=== PATIENT | female | born 1955 | race Caucasian/White ===

== ENCOUNTER 2023-07-26 09:24 | Day surgery (SDC) | payer MEDICARE, OTHER, SELFPAY ==
[2023-07-26] MEDS: ELIQUIS 5 MG PO (10:27)
[2023-07-26 10:31] LABS: Glucose - Point of Care 120 mg/dl (70-99)
--- NOTE | 2023-07-26 11:15 | ITS.CL.CARDI ---
Paste Worker - Cardioversion
Cardioversion
Procedure Report:
Indication: Recurrent atrial fibrillation 1 month after pulmonary vein isolation
Patient interviewed and examined, consent obtained, timeout performed
Anesthetic technique: Propofol administered by WIND DEVELOPMENT DIRECTOR
Cardioversion technique: 200 J synchronized biphasic shock patches AP position
Result: Sinus rhythm
Complications: None
Conclusion: Successful cardioversion for recurrent atrial fibrillation
No medication changes were made. The patient will follow-up to Dr. Boles as an outpatient.
== END 2023-07-26 11:45 | disposition home or self-care (01) ==
LOC: CATH 09:24
PROVIDERS: ATTENDING PHYSICIAN Internal Medicine Cardiovascular Disease; FAMILY PHYSICIAN Nurse Practitioner Adult Health
DX: I48.0 Paroxysmal atrial fibrillation (principal); I48.92 Unspecified atrial flutter; I10 Essential (primary) hypertension; K21.9 Gastro-esophageal reflux disease without esophagitis; E11.319 Type 2 diabetes mellitus with unspecified diabetic retinopathy without macular edema; Z87.891 Personal history of nicotine dependence; E66.9 Obesity, unspecified; Z68.38 Body mass index [BMI] 38.0-38.9, adult; Z79.4 Long term (current) use of insulin; Z79.01 Long term (current) use of anticoagulants
CPT/HCPCS: 82962; 92960; 93005

== ENCOUNTER 2023-07-29 16:18 | Emergency (ER) | payer MEDICARE, OTHER, SELFPAY ==
[2023-07-29 16:20] VITALS: BP 140/61
[2023-07-29 16:50] LABS: % Basophils 0.6 % (0-2); % Eosinophils 2.1 % (0-6); % Immature Granulocytes 0.4 % (0-0.5); % Lymphocytes 14.4 % (20.5-51.1); % Monocytes 12.3 % (1.7-9.3); % Neutrophils 70.2 % (42.2-75.2); Absolute Eosinophils 0.1 10^3/uL (0-0.7); Absolute Lymphocytes 0.8 10^3/uL (1.2-3.4); Absolute Monocytes 0.6 10^3/uL (0.1-0.6); Absolute Neutrophils 3.7 10^3/uL (1.4-6.5); Hematocrit 34.1 % (37.0-47.0); Hemoglobin 10.9 g/dL (12.0-16.0); Mean Corpuscular Hgb 26.3 pg (27.0-31.0); Mean Corpuscular Volume 82.4 fL (81.0-99.0); Mean Platelet Volume 11.5 fL (7.4-10.4); Nucleated Red Blood Cells % 0 %; Platelet Count 146 10^3/uL (130-400); Red Blood Cell Count 4.14 10^6/uL (4.20-5.40); White Blood Cell Count 5.2 10^3/uL (4.8-10.8)
[2023-07-29 16:59] LABS: INR 1.53; PT 18.2 Sec (11.4-14.6)
[2023-07-29 17:00] LABS: APTT 41.9 Sec (23.4-35.0)
[2023-07-29 17:04] LABS: ALT (SGPT) 78 U/L (0-35); AST (SGOT) 46 U/L (14-36); Albumin 3.8 g/dl (3.5-5.0); Alkaline Phosphatase 232 U/L (38-126); Blood Urea Nitrogen 38 mg/dl (7-17); Calcium 8.7 mg/dl (8.4-10.2); Carbon Dioxide 19 mmol/L (22-30); Chloride 108 mmol/L (98-107); Glucose 200 mg/dl (70-99); Potassium 4.7 mmol/L (3.5-5.1); Sodium 135 mmol/L (135-145); Total Bilirubin 0.9 mg/dl (0.2-1.3); Total Protein 6.9 g/dl (6.3-8.2); eGFR 55.42
[2023-07-29 17:15] LABS: Troponin I < 0.012 ng/ml
[2023-07-29 18:43] VITALS: BP 171/70
[2023-07-29 19:00] VITALS: BP 168/71
--- NOTE | 2023-07-29 19:17 | ED.GENMED ---
History of Present Illness
General
Chief Complaint: Chest Pain
Source: patient
Exam Limitations: none
Time Seen by Provider: 07/29/23 19:03
Nursing documentation reviewed up to this point in time: agreed with
Travel History
Have you had any contact with someone who has COVID-19?: No
Do you have any symptoms of coronavirus? Fever > 100 degrees, chills, cough, shortness of breath, sore throat, loss of taste or smell, muscle aches, or headache?: No
History of Present Illness
History of Present Illness:
67-year-old female presents emergency room complaining of left-sided chest pain, epigastric pain, left flank pain and urinary retention. She also has a diarrhea. This has happened since Saturday afternoon when she had a cardioversion. This occurred
after she was discharged. She states she had no symptoms upon leaving the hospital.
Past History
Past History
ED Past Medical History: Arrthythmia (Atrial fibrillation, atrial flutter), GERD, HTN and IDDM
ED Past Surgical History: Appendectomy, Cardiac and Gynecological
Social History
Tobacco: Former smoker
Alcohol: Occasional
Family History
Family History: CAD
Review of Systems
Review of Systems
Allergies reviewed?: Yes
All Other Systems: Not applicable
Constitutional: Reports no symptoms
EENT: Reports no symptoms
Respiratory: Reports no symptoms
Cardiac: Reports chest pain
ABD/GI: Reports abdominal pain
: Reports flank pain and difficulty voiding
Musculoskeletal: Reports no symptoms
Skin: Reports no symptoms
Neurological: Reports no symptoms
Endocrine: Reports no symptoms
Hematologic/Lymphatic: Reports no symptoms
Psychiatric: Reports no symptoms
Phy Exam
Physical Exam
Physical Exam:
Physical Exam
General: no apparent distress, not acutely ill
Neck: supple. no meningeal signs. normal posterior pharynx
Heart: s1/s2 regular rate and rhythm, no murmur. equal radial
pulses.
HEENT: Pupils equal round reactive to light, EOMI
Lungs: no acute respiratory distress. clear bilaterally
Abdomen: normal bowel sounds. not tender. no CVAT
Neuro: alert and oriented. no focal neurological deficits cranial nerves II through XII intact
Skin: no rash
Psychiatric: well kept. interactive and cooperative
Extremities: no edema. no calf tenderness. negative homans. good distal pulses
Scores
Heart Score for Chest Pain Patients
STEMI patient?: No
History: Slightly or Non-Suspicious
ECG: Normal
Age: >/= 65 years
Risk Factors: 1 or 2 Risk Factors
Troponin: </= Normal Limit
Heart Score for Chest Pain Patients: 3
Heart Score Risk: 2.5% MACE over next 6 weeks
Course
Orders/Labs/Results
Orders:
Orders
07/29/23 16:19
Electrocardiogram (*1) Urgent
Reason for Study: Chest Pain
EKG- Treatment ONCE
07/29/23 16:37
CMP [Comprehensive Metabolic Panel] Urgent
Complete Blood Count/With Diff Urgent
Lipase Urgent
Comment: ADD ON
NT-proBNP Urgent
Comment: ADD ON
PT/INR [Prothrombin Time] Urgent
PTT Urgent
Troponin I Urgent
07/29/23 19:15
CR Chest - 2 Views Urgent
Comment:
Reason For Exam: short of breath, chest pain
US Abdomen Complete/Upper Urgent
Comment:
Reason For Exam: epigastric pain
07/29/23 19:17
Add On- LAB Urgent
Tests Added?: lipase, pro-bnp
07/29/23 20:50
Bladder Scan- Treatment ONCE
Pantoprazole [Protonix] 40 mg PO NOW STA
07/29/23 21:10
Urinalysis Reflex To Culture Urgent
Date Specimen was Collected: 07/29/23
Time Specimen was Collected: 16:28
Urine Microscopic Reflex Cult Urgent
Urine Culture Urgent
LINN Source: U
Specimen Description:
Date Specimen was Collected: 07/29/23
Time Specimen was Collected: 16:28
07/29/23 21:14
Troponin I Urgent
Abnormal Lab Results
07/29/23 07/29/23
16:37 21:10
RBC 4.14 L 10^6/uL
(4.20-5.40)
Hgb 10.9 L g/dL
(12.0-16.0)
Hct 34.1 L %
(37.0-47.0)
MCH 26.3 L pg
(27.0-31.0)
MCHC 32.0 L g/dL
(33.0-37.0)
RDW 15.0 H %
(11.5-14.5)
MPV 11.5 H fL
(7.4-10.4)
Absolute Lymphs (auto) 0.8 L 10^3/uL
(1.2-3.4)
Lymphocytes % 14.4 L %
(20.5-51.1)
Monocytes % 12.3 H %
(1.7-9.3)
PT 18.2 H Sec
(11.4-14.6)
APTT 41.9 H Sec
(23.4-35.0)
Chloride 108 H mmol/L
(98-107)
Carbon Dioxide 19 L mmol/L
(22-30)
BUN 38 H mg/dl
(7-17)
Creatinine 1.1 H mg/dL
(0.6-1.0)
Glucose 200 H mg/dl
(70-99)
AST 46 H U/L
(14-36)
ALT 78 H U/L
(0-35)
Alkaline Phosphatase 232 H U/L
(38-126)
Leukocyte Esterase Rfl 1+ A
(Negative)
Urine WBC (Reflex) 16-20 A /HPF
(0-5)
Urine Bacteria (Reflex) Moderate A
(Negative)
Urine Albumin (Reflex) 2+ A
(Neg - Trace)
07/29/23 16:37
07/29/23 16:37
Vital Signs
Initial and Last Documented VS:
Initial Vital Signs
Temp Pulse Resp BP Pulse Ox
98.0 F 55 20 140/61 99
07/29/23 16:20 07/29/23 16:20 07/29/23 16:20 07/29/23 16:20 07/29/23 16:20
Last Documented Vital Signs
Temp Pulse Resp BP Pulse Ox
98.0 F 55 17 168/71 98
07/29/23 16:20 07/29/23 20:30 07/29/23 20:30 07/29/23 19:00 07/29/23 20:30
MDM/Problems Addressed
Differential Diagnosis Includes:
ACS, PE, pneumonia, CHF, urinary retention
MDM/Problems Addressed:
67-year-old female with chest pain for 4 days. Negative troponins, normal chest x-ray.
Chronic conditions affecting care: Arrhythmia
Acute Exacerbation and/or Progression of Chronic Illness: Arrhythmia
*Radiology
Radiology exam reviewed: radiology read reviewed (X-ray and ultrasound no acute findings)
*Pulse Oximetry
Patient hypoxic: no
*EKG
Interpreted by ED Provider?: Yes
EKG Intrepretation Date: 07/29/23
EKG Intrepretation Time: 16:22
Interpretation: abnormal
Comparison EKG: no changes
Heart Rate: 56
Rate: bradycardiac
Rhythm: sinus
[place]: right axis deviation
Interval: normal interval
QRS Pattern: right bundle branch block
Ischemia: no ischemia
*Estimator Jewelry Interpretation
Rate: bradycardiac
Interpretation: abnormal
Heart Rate: 56
Rhythm: sinus
*Critical Care Note
Total Time (30-74mins, 75-104mins- exclusive of procedures): Not Applicable
Data Reviewed
Review of Other/Old Records Reveals: Labs (creatinine 0.7 on 06/13/2023)
Patient Management
Social determinants of health affecting care: Living situation
Discussion with other providers: Transformer Builder (D/w Dr. Gr who recommends chest x-ray)
Escalation/DeEscalation of care consider admission/obs:
Admit not indicated
ED Attending Note
-
Portions of this chart may have been created with voice recognition software.� Occasional wrong word or��sound alike� substitutions may have occurred due to the inherent limitations of voice recognition software.
Discharge Plan
Departure
Patient Disposition: Home (Routine Discharge)
Date of Disposition: 07/29/23
Time of Disposition: 22:29
Patient with high blood pressure during this ER visit?: Yes
Condition: Good
Discharge Problem:
Chest pain
Instructions: Chest Pain DCA Follow Up, BLOOD PRESSURE
Prescriptions:
No Action
metoprolol tartrate 25 MG tablet
50 mg PO BID
losartan [Cozaar] 100 MG tablet
100 mg PO DAILY
pantoprazole [Protonix] 40 mg tablet,delayed release (DR/EC)
40 mg PO BID Qty: 60 0RF
furosemide [Lasix] 20 mg tablet
20 mg PO DAILY Qty: 90 5RF
acetaminophen [Tylenol Extra Strength] 500 mg Tablet
1,000 mg PO DAILYPRN PRN (Reason: mild pain/DONOVAN)
nystatin 100,000 unit/gram Powder
1 applic TOPICAL .2 TO 3 TIMES A DAY
insulin aspart U-100 [Novolog U-100 Insulin aspart] 100 unit/mL Solution
0 unit SC .VIA PUMP
Patient Comments:
06/19/23, patient uses a pump and states that she uses roughly 90 units a day and replaces her set Q72H. Patient states that she just replaced her insulin today. Insulin use depends on her basal rate and what she eats during meals.
Eliquis 5 mg tablet
5 mg PO BID Qty: 60 0RF
propafenone 150 mg Tablet
150 mg PO TID
Referrals:
UNKNOWN - PT DOES,NOT KNOW [Unknown Provider] -
Interventions
Interventions:
*Risk Screen - Suicide Last Done: 07/29/23 18:49
*General Assessment Last Done: 07/29/23 18:49
*Neglect/Abuse Screening Last Done: 07/29/23 18:49
ED- Fall Risk Assessment Last Done: 07/29/23 18:49
*ED COVID-19 Vaccine History Last Done: 07/29/23 18:49
ED- Cardiac Assessment Last Done: 07/29/23 18:49
[2023-07-29 19:52] LABS: Lipase 44 U/L (23-300)
[2023-07-29 20:03] LABS: NT-proBNP 826 pg/ml
[2023-07-29 20:58] VITALS: BP 159/96
[2023-07-29] MEDS: PROTONIX 40 MG PO (20:59)
[2023-07-29 21:43] LABS: Urine Albumin 2+ (Neg - Trace); Urine Bilirubin Negative (Negative); Urine Character Slightly Cloudy (Clear); Urine Color Yellow; Urine Glucose Negative (Negative); Urine Ketone Negative (Negative); Urine Leukocyte 1+ (Negative); Urine Nitrite Negative (Negative); Urine Occult Blood Negative (Negative); Urine Specific Gravity 1.015 (<1.030); Urine Urobilinogen Negative (Neg - 1+)
[2023-07-29 21:47] LABS: Troponin I < 0.012 ng/ml
[2023-07-29 22:00] LABS: Urine Bacteria Moderate (Negative); Urine Red Blood Cell 0-2 /HPF (0-2); Urine Squamous Cell >30 /LPF (Few); Urine White Cell 16-20 /HPF (0-5)
== END 2023-07-29 22:46 | disposition home or self-care (01) ==
LOC: EMR 16:18
PROVIDERS: Emergency Medicine; EMERGENCY PHYSICIAN Emergency Medicine; FAMILY PHYSICIAN Nurse Practitioner Adult Health
DX: R07.89 Other chest pain (principal); R19.7 Diarrhea, unspecified; R33.9 Retention of urine, unspecified; R10.9 Unspecified abdominal pain; I48.91 Unspecified atrial fibrillation; I10 Essential (primary) hypertension; R06.02 Shortness of breath; Z87.891 Personal history of nicotine dependence
CPT/HCPCS: 99285; 51798; 71046; 76700; 80053; 81003; 81015; 83690; 83880; 84484; 85025; 85610; 85730; 87086; 93005

== ENCOUNTER 2023-08-05 18:24 | Inpatient (IN) | payer MEDICARE, OTHER, SELFPAY ==
[2023-08-05] VITALS (8 sets, daily range): BP systolic 135–162; BP diastolic 41–68; BMI 37.4
[2023-08-05 14:20] LABS: % Basophils 0.4 % (0-2); % Eosinophils 2.1 % (0-6); % Immature Granulocytes 0.2 % (0-0.5); % Lymphocytes 12.4 % (20.5-51.1); % Monocytes 13.2 % (1.7-9.3); % Neutrophils 71.7 % (42.2-75.2); Absolute Eosinophils 0.1 10^3/uL (0-0.7); Absolute Lymphocytes 0.6 10^3/uL (1.2-3.4); Absolute Monocytes 0.6 10^3/uL (0.1-0.6); Absolute Neutrophils 3.4 10^3/uL (1.4-6.5); Hematocrit 34.8 % (37.0-47.0); Hemoglobin 10.8 g/dL (12.0-16.0); Mean Corpuscular Hgb 25.9 pg (27.0-31.0); Mean Corpuscular Volume 83.5 fL (81.0-99.0); Mean Platelet Volume 10.5 fL (7.4-10.4); Nucleated Red Blood Cells % 0 %; Platelet Count 166 10^3/uL (130-400); Red Blood Cell Count 4.17 10^6/uL (4.20-5.40); Red Cell Dist. Width 15.7 % (11.5-14.5); White Blood Cell Count 4.7 10^3/uL (4.8-10.8)
[2023-08-05 14:31] LABS: INR 1.69; PT 19.7 Sec (11.4-14.6)
[2023-08-05 14:32] LABS: APTT 43.8 Sec (23.4-35.0)
[2023-08-05 14:49] LABS: ALT (SGPT) 140 U/L (0-35); AST (SGOT) 139 U/L (14-36); Albumin 3.8 g/dl (3.5-5.0); Alkaline Phosphatase 252 U/L (38-126); Blood Urea Nitrogen 25 mg/dl (7-17); Calcium 8.6 mg/dl (8.4-10.2); Carbon Dioxide 26 mmol/L (22-30); Chloride 102 mmol/L (98-107); Glucose 273 mg/dl (70-99); Sodium 134 mmol/L (135-145); Total Bilirubin 1.7 mg/dl (0.2-1.3); eGFR > 60.00
[2023-08-05 15:04] LABS: NT-proBNP 1840 pg/ml
--- NOTE | 2023-08-05 16:43 | ED.GENMED ---
History of Present Illness
General
Chief Complaint: Breathing Problem
Source: patient and records
Exam Limitations: none
Time Seen by Provider: 08/05/23 16:22
Nursing documentation reviewed up to this point in time: agreed with
Travel History
Have you had any contact with someone who has COVID-19?: No
Do you have any symptoms of coronavirus? Fever > 100 degrees, chills, cough, shortness of breath, sore throat, loss of taste or smell, muscle aches, or headache?: No
History of Present Illness
History of Present Illness:
Patient is a 67-year-old female who presents to the emergency department complaining of increasing shortness of breath since last week with increasing exertional dyspnea and can only walk about 10 feet before having to stop. Patient has had
orthopnea. Patient's weight was 235 and went down to 222 which is her baseline however today it was 237. Patient denies chest pain. Patient has been having diarrhea since she went on propafenone for atrial fibrillation. Last week the patient was
seen for shortness of breath with abdominal pain and chest pain. Patient was given Protonix. Patient's Lasix last week was increased from 20 mg a day to 40 mg twice a day. 3 days ago the patient had a good day but since then she was put on weight
felt edematous and had increasing shortness of breath. Patient continues to have diarrhea. Patient denies any abdominal pain, nausea or vomiting. Patient denies fevers but admits to chills. Patient feels fatigue.
Past History
Past History
ED Past Medical History: Arrthythmia (Atrial fibrillation, atrial flutter), CHF, GERD, HTN and IDDM
ED Past Surgical History: Appendectomy, Cardiac and Gynecological
Social History
Tobacco: Former smoker
Alcohol: Occasional
Family History
Family History: CAD
Review of Systems
Review of Systems
All Other Systems: ROS reviewed and negative except as documented in HPI and ROS
Constitutional: Reports weight gain, fatigue and chills; Denies fever
EENT: Reports no symptoms
Respiratory: Reports trouble breathing; Denies cough
Cardiac: Reports no symptoms
ABD/GI: Reports diarrhea; Denies abdominal pain, nausea, vomiting or anorexia
: Reports frequency; Denies dysuria or bleeding
Musculoskeletal: Reports edema
Skin: Reports no symptoms
Neurological: Reports no symptoms
Hematologic/Lymphatic: Reports no symptoms
Phy Exam
Physical Exam
Physical Exam:
Physical Exam
General: mild distress, alert and appropriate, well nourished, well hydrated
HENT: Normocephalic, supple with no lymphadenopathy, no thyromegaly
Eyes: Clear sclera, conjuctiva without injection
Heart: Regular rhythm and rate. No S3, S4. No murmur. Positive neck vein distention
Lungs: No respiratory distress, no stridor, lung sounds with diminished breath sounds in the bases but otherwise clear and equal bilaterally
Abdomen: Soft, nontender, no organomegaly, no CVA tenderness, BS good
Neuro: Alert and oriented x 3, CN II - XII intact, no motor focality, no cerebellar dysfunction
Skin: no rash
Psychiatric: well kept. interactive and cooperative
Extremities: No cyanosis, tenderness, Good and equal peripheral pulses. +1-2 pitting edema from the knees distally bilaterally
Scores
Heart Failure Risk
Heart Failure Risk Score: Yes
History of Stroke or TIA: No
History of intubation for respiratory distress: No
Heart rate on ED arrival >/= 110: No
SaO2 <90% on arrival on room air: No
HR >/=110 during 3min walk test (or too ill to perform test): Yes
ECG has acute ischemic changes: No
Urea >/=12mmol/L (BUN 33.6mg/dL): No
Serum CO2>/=35mmol/L: No
Troponin I or T elevated to CA Level (0.4mg/dL): No
NT-proBNP >/=5,000ng/L (5,000pg/ml): No
HF Risk Score: 2
Admission Status: MEDIUM RISK 9.2% Consider observation or discharge to home with homecare & f/u visit to PCP/Aerial Hurricane Hunter, or SNF for treatment
Course
Orders/Labs/Results
Orders:
Orders
08/05/23 13:55
EKG [Electrocardiogram (*1)] Urgent
Reason for Study: Shortness of Breath
EKG- Treatment ONCE
08/05/23 14:03
BNP [NT-proBNP] Urgent
Complete Blood Count/With Diff Urgent
Comprehensive Metabolic Panel Urgent
Protime/PTT Urgent
08/05/23 16:40
Troponin I Urgent
Furosemide [Lasix] 80 mg IV NOW STA
Nitroglycerin Ointment [Nitro-Bid] 1 inch TOPICAL NOW STA
CR Chest - 2 Views Urgent
Comment:
Reason For Exam: sob chf
Abnormal Lab Results
08/05/23
14:03
WBC 4.7 L 10^3/uL
(4.8-10.8)
RBC 4.17 L 10^6/uL
(4.20-5.40)
Hgb 10.8 L g/dL
(12.0-16.0)
Hct 34.8 L %
(37.0-47.0)
MCH 25.9 L pg
(27.0-31.0)
MCHC 31.0 L g/dL
(33.0-37.0)
RDW 15.7 H %
(11.5-14.5)
MPV 10.5 H fL
(7.4-10.4)
Absolute Lymphs (auto) 0.6 L 10^3/uL
(1.2-3.4)
Lymphocytes % 12.4 L %
(20.5-51.1)
Monocytes % 13.2 H %
(1.7-9.3)
PT 19.7 H Sec
(11.4-14.6)
APTT 43.8 H Sec
(23.4-35.0)
Sodium 134 L mmol/L
(135-145)
BUN 25 H mg/dl
(7-17)
Glucose 273 H mg/dl
(70-99)
Total Bilirubin 1.7 H mg/dl
(0.2-1.3)
AST 139 H U/L
(14-36)
ALT 140 H U/L
(0-35)
Alkaline Phosphatase 252 H U/L
(38-126)
08/05/23 14:03
08/05/23 14:03
Vital Signs
Initial and Last Documented VS:
Initial Vital Signs
Temp Pulse Resp BP Pulse Ox
97.9 F 62 18 162/68 95
08/05/23 13:52 08/05/23 13:52 08/05/23 13:52 08/05/23 13:52 08/05/23 13:52
Last Documented Vital Signs
Temp Pulse Resp BP Pulse Ox
97.9 F 62 18 162/68 95
08/05/23 13:52 08/05/23 13:52 08/05/23 13:52 08/05/23 13:52 08/05/23 13:52
*Pulse Oximetry
Patient hypoxic: no
*EKG
Interpreted by ED Provider?: Yes
EKG Intrepretation Date: 08/05/23
EKG Intrepretation Time: 16:48
Interpretation: abnormal
Comparison EKG: no changes
Heart Rate: 64
Rate: normal
Rhythm: sinus
[place]: normal axis
Interval: normal interval
QRS Pattern: low voltage and right bundle branch block
Ischemia: non-specific ST changes
*Bender Helper Interpretation
Rate: normal
Interpretation: normal
Heart Rate: 64
Rhythm: sinus
*Critical Care Note
Total Time (30-74mins, 75-104mins- exclusive of procedures): Not Applicable
Update Note
Update Note:
Patient's weight is elevated in spite of quadrupling and her Lasix dose. Patient is symptomatic as well as having clinical findings of CHF. Patient's liver enzymes are elevated. Patient's BNP is her highest ever. Patient will be admitted.
ED Attending Note
-
Portions of this chart may have been created with voice recognition software.� Occasional wrong word or��sound alike� substitutions may have occurred due to the inherent limitations of voice recognition software.
Discharge Plan
Departure
Patient Disposition: Admit
Date of Disposition: 08/05/23
Time of Disposition: 16:48
Admit to: Telemetry
Admit to doctor: Hospitalist
Presentation/result/management discussed w/ accepting MD/DO: Aerial Hurricane Hunter
Patient with high blood pressure during this ER visit?: Yes
Condition: Fair
Covid-19: Not Applicable
Discharge Problem:
CHF (congestive heart failure)
Prescriptions:
No Action
metoprolol tartrate 25 MG tablet
50 mg PO BID
losartan [Cozaar] 100 MG tablet
100 mg PO DAILY
Eliquis 5 mg tablet
5 mg PO BID Qty: 60 0RF
propafenone 150 mg Tablet
150 mg PO TID
Patient Own Insulin Pump
0 unit SC AC
Rx Instructions:
patient using insulin apart
pantoprazole [Protonix] 40 mg tablet,delayed release (DR/EC)
40 mg PO DAILY
furosemide [Lasix] 20 mg tablet
40 mg PO DAILY
Interventions
Interventions:
*Risk Screen - Suicide Last Done: 08/05/23 13:52
*General Assessment Last Done: 08/05/23 13:52
*Neglect/Abuse Screening Last Done: 08/05/23 13:52
*ED COVID-19 Vaccine History Last Done: 08/05/23 13:52
--- NOTE | 2023-08-05 17:14 | EDRN ---
Diane GOMEZ in room w/pt at this time.
--- NOTE | 2023-08-05 17:16 | HPS.HSE ---
Addendum entered and electronically signed by Flora Scott MD 08/05/23 18:17:
I saw and examined the patient.
The PIPE WRAPPING MACHINE OPERATOR or PA's note was reviewed and I agree with the note.
Comment:
CVS: S1-S2 normal, sm at RHB
Chest: few rales Bases
Abdomen: Soft, NT / Bowel sounds present
Extremities: B/L LE edema, normal pulses
ROAD DESIGN DRAFTSPERSON: Non focal exam
#Acute Heart Failure
-Type unclear
-HFPEF Vs RHF
-[facility] Mar 2023: EF 55-60%
-Likely reason rapid Afib, now in SR
-Continue Lasix 40mg IV BID
-Monitor I&Os and Daily Weights
-Consult Cardiology
#Elevated LFTs, suspect related to hepatic congestion in setting of heart failure
-Continue to trend
-Consider further imaging if LFTs do no improve with diuresis
-Recent USS with Steato hepatosis
#Paroxysmal Atrial Fibrillation
-H/O Multiple Ablations and cardioversions
-Last Cardioversion 07/26/23
-Last Ablation 06/19/23
-In SR now
-Continue Eliquis for anticoagulation
-Continue Rythmol and Metoprolol for rhythm/rate control
-Advised pt to Do Sleep study as OP
#Essential Hypertension
-Continue losartan and metoprolol with hold parameters
#Diabetes Mellitus
-Continue patient's own insulin pump
-She is comfortable managing
-Uses NovoLog Insulin
#Normocytic Anemia
-Check iron studies, vitamin b12 and folate
#GERD
-Continue Protonix
#Obesity Class II
-Encourage weight loss
-Encouraged patient to obtain sleep study as outpatient
#H/O Migraines
#Ex Smoker
#DVT prophylaxis: Eliquis
#Code Status: Full Code
Original Note:
Family Physician
-
Family Physician:
Chief Complaint
-
Shortness of Breath
History of Present Illness
Patient is a 67 y/o female with PMH of paroxysmal atrial fibrillation, type I diabetes mellitus, and hypertension who presented to the ED complaining of SOB, orthopnea, and acute weight gain x 7 days. Patient first experienced atrial fibrillation 10
years ago and underwent ablation and cardioversion. She says she had not experienced a-fib again until this past fall. She had an ablation on 06/19/23 followed by a cardioversion on 07/26/2023. Patient admits to 11 lb weight gain since her
cardioversion. Last Saturday her dose of Lasix was increased from 20 mg to 40 mg. Despite increased Lasix she has gained an additional few pounds and admits to generalized edema for the past week. She has had worsening dyspnea on exertion to the
point of feeling shortness of breath after walking 10 ft. Patient says she has been unable to sleep for the past 2 weeks due to orthopnea. She denies any prior history of heart failure.
Medical History
Past Medical History
Past Medical History: Reports Other
Additional Past Medical History:
Paroxysmal Atrial Fibrillation
Essential Hypertension
Hyperlipidemia
Diabetes Mellitus, Insulin-Dependent
GERD
Past Surgical History: Reports Other
Additional Past Surgical History:
Right Rotator Cuff Repair
Appendectomy
Discectomy
Tubal Ligation
Tonsils and Adenoids
Social History
Tobacco: Non-smoker
Alcohol: None
Family History
Family History: Hypertension
Allergies / Home Medications
Allergies reflects when Allergies were last updated in [facility].
Home Medications with original date entered in [facility]
Allergy/Medication List:
Allergies
Allergy/AdvReac Type Severity Reaction Status Date / Time
adhesive [Adhesive] Allergy Unknown Rash Verified 08/05/23 13:53
crisaborole [From Eucrisa] Allergy Rash Verified 08/05/23 13:53
sulfamethoxazole Allergy GI upset Verified 08/05/23 13:53
[From Bactrim]
trimethoprim [From Bactrim] Allergy GI upset Verified 08/05/23 13:53
Home Medications
metoprolol tartrate 25 mg tablet 50 mg PO BID Blood pressure 01/10/14
losartan 100 mg tablet (Cozaar) 100 mg PO DAILY Blood pressure 01/14/21
apixaban 5 mg tablet (Eliquis) 5 mg PO BID #60 tabs 05/28/23
propafenone 150 mg tablet 150 mg PO TID 07/26/23
Patient Own Insulin Pump 0 unit SC AC 08/05/23
furosemide 20 mg tablet (Lasix) 40 mg PO DAILY 08/05/23
pantoprazole 40 mg tablet,delayed release (Protonix) 40 mg PO DAILY 08/05/23
Review of Systems
-
A 12 point ROS was completed and negative except as noted: Yes
Constitutional: Denies Fever or Chills
Respiratory: Reports Trouble Breathing
Cardiac: Reports Chest Pain (Episode last week at which she was seen in the ED with negative work-up)
Physical Exam
Vital Signs
Vital Signs
Temp Pulse Resp BP Pulse Ox
97.9 F 62 18 162/68 95
08/05/23 13:52 08/05/23 13:52 08/05/23 13:52 08/05/23 13:52 08/05/23 13:52
Physical Exam
General: Well Developed and Well Nourished
HEENT: Anicteric and Moist mucous membranes
Respiratory: Clear and Non Labored Respirations
Cardiac: S1/S2, Regular Rhythm and Gallop
GI: Soft, Non Tender and Other (Protuberant )
Rectal: Deferred by Provider
Musculoskeletal: No Clubbing, No Cyanosis and Other (+3 pitting edema bilateral lower ext)
Skin: Warm and Dry
Neuro: Awake, Alert, Oriented and Nonfocal/grossly intact
Psych: Calm
Laboratory Results
-
08/05/23 14:03
08/05/23 14:03
Laboratory Results
PT 19.7 Sec (11.4-14.6) H 08/05/23 14:03
INR 1.69 08/05/23 14:03
APTT 43.8 Sec (23.4-35.0) H 08/05/23 14:03
Total Bilirubin 1.7 mg/dl (0.2-1.3) H 08/05/23 14:03
AST 139 U/L (14-36) H 08/05/23 14:03
ALT 140 U/L (0-35) H 08/05/23 14:03
Alkaline Phosphatase 252 U/L (38-126) H 08/05/23 14:03
Data Reviewed
-
Lab Data: Labs Reviewed by me
Impression/Plan
-
Acute Heart Failure
-[facility] HUGO Mar 2023: EF 55-60%
-Consult Cardiology
-Continue Lasix 40mg IV BID
-Monitor I&Os and Daily Weights
Elevated LFTs, suspect related to hepatic congestion in setting of heart failure
-Continue to trend
-Consider further imaging if LFTs do no improve with diuresis
Paroxysmal Atrial Fibrillation
-Continue Eliquis for anticoagulation
-Continue Rythmol and Metoprolol for rhythm/rate control
Essential Hypertension
-Continue losartan and metoprolol with hold parameters
Diabetes Mellitus,
-Continue patient's own insulin pump
Normocytic Anemia
-Check iron studies, vitamin b12 and folate
GERD
-Continue Protonix
Obesity Class II
-Encourage weight loss
-Encouraged patient to obtain sleep study as outpatient
DVT proph: Eliquis
Code Status: Full Code
[2023-08-05] MEDS: NITRO-BID 1 INCH TOPICAL (17:19)
[2023-08-05] MEDS: LASIX 80 MG IV (17:22)
--- NOTE | 2023-08-05 17:25 | EDRN ---
Dr. Scott in room w/ pt at this time.
[2023-08-05 17:48] LABS: Troponin I < 0.012 ng/ml
--- NOTE | 2023-08-05 18:07 | EDRN ---
Pt OOB x2 to commode, once prior to xray and now post xray.
[2023-08-05 19:28] LABS: Iron 46 ug/dl (37-170)
[2023-08-05 19:37] LABS: Percent Saturation 11 % (20-50); Total Iron Binding Capacity 393 ug/dl (265-497)
[2023-08-05 20:19] LABS: Ferritin 20.9 ng/ml (11.1-264.0)
[2023-08-05 20:51] LABS: Folate 12.7 ng/ml (2.76-20); Vitamin B12 656 pg/ml (239-931)
[2023-08-05] MEDS: ELIQUIS 5 MG PO (20:58)
[2023-08-05] MEDS: LOPRESSOR 50 MG PO (20:58)
[2023-08-05] MEDS: RYTHMOL 150 MG PO (21:42)
[2023-08-05 21:46] LABS: Glucose - Point of Care 162 mg/dl (70-99)
[2023-08-05] MEDS: PT'S OWN INSULIN PUMP - NovoLOG SC (22:19)
[2023-08-06] VITALS (7 sets, daily range): BP systolic 115–142; BP diastolic 49–72; BMI 37.0; BMI 37.1
[2023-08-06 06:05] LABS: Hematocrit 32.5 % (37.0-47.0); Hemoglobin 10.2 g/dL (12.0-16.0); Mean Corp Hgb Conc. 31.4 g/dL (33.0-37.0); Mean Corpuscular Volume 82.9 fL (81.0-99.0); Platelet Count 162 10^3/uL (130-400); Red Blood Cell Count 3.92 10^6/uL (4.20-5.40); Red Cell Dist. Width 15.9 % (11.5-14.5); White Blood Cell Count 3.9 10^3/uL (4.8-10.8)
[2023-08-06 06:33] LABS: ALT (SGPT) 110 U/L (0-35); AST (SGOT) 77 U/L (14-36); Albumin 3.3 g/dl (3.5-5.0); Alkaline Phosphatase 221 U/L (38-126); Blood Urea Nitrogen 25 mg/dl (7-17); Calcium 8.5 mg/dl (8.4-10.2); Carbon Dioxide 30 mmol/L (22-30); Chloride 104 mmol/L (98-107); Direct Bilirubin 0.2 mg/dl (0.0-0.4); Estimated Creatinine Clearance 75 ml/min; Glucose 88 mg/dl (70-99); HDL Cholesterol 40 mg/dl; LDL Cholesterol, Calculated 49 mg/dl; Magnesium 1.9 mg/dl (1.6-2.3); Potassium 3.7 mmol/L (3.5-5.1); Sodium 138 mmol/L (135-145); Total Bilirubin 1.3 mg/dl (0.2-1.3); Total Cholesterol 105 mg/dl (50-199); Total Protein 6.4 g/dl (6.3-8.2); Triglyceride 80 mg/dl (10-149); Very Low Density Lipoprotein 16 mg/dl (0-30); eGFR > 60.00
[2023-08-06 06:57] LABS: TSH Reflex To Free T4 3.57 uIU/ml (0.47-4.68)
[2023-08-06] MEDS: PROTONIX 40 MG PO (08:14)
[2023-08-06] MEDS: COZAAR 100 MG PO (08:14)
[2023-08-06] MEDS: LOPRESSOR 50 MG PO (08:15)
[2023-08-06] MEDS: LASIX 40 MG IV (08:16)
[2023-08-06] MEDS: ELIQUIS 5 MG PO ×2 (08:16→20:29)
[2023-08-06] MEDS: FLUSH (NSS) 2 FLUSH IV (08:18)
[2023-08-06] MEDS: RYTHMOL 150 MG PO ×3 (08:24→21:51)
[2023-08-06 08:26] LABS: Glycohemoglobin (HgbA1c) 7.7 % (4.0-5.6)
[2023-08-06 08:29] LABS: Glucose - Point of Care 102 mg/dl (70-99)
--- NOTE | 2023-08-06 09:24 | PN.DE.MGMTRT ---
Insulin Management
- -
08/06/2023: Diabetes Management Consult:
67 year old female admitted 08/04 with chest pain and diarrhea.
PMH includes: HTN, CAD, a Fib s/p ablation, and T1DM x 40 years.
Prior to admission she was using Tandem tslim X2 with control IQ with NovoLog Insulin and DexCom G67. A1C on admission is 7.7%. States that the best her A1C has veer been was at 7.2%. She still sees her endocrine Dr. Cordero in the [facility].
Pump settings:
Basal carb ratio correction
12am 1.85 10 30
3am 1.75 10 30
5am 1.35 5 30
6am 1.65 6 30
630am 1.75 5.5 30
8:30am 1.4 5.5 30
12pm 1.1 5 30
6pm 1.2 4.5 30
8pm 1.4 4.5 30
10pm 1.4 4 30
24 hour basal total 34.225 units
Target range 110. Active insulin 5 hours
Glucose stable, FBG 88 this AM, prebreakfast 102, on above pump settings. Patient able to manage pump independently.
Her breakfast meal tkt shows a total of 4 CHO servings +60 Gm of carbs, pt states that she corrected for 2 CHO svgs because she felt that the hospital CHO counting system was higher than her CHO count that she does at home. Her current glucose is
186 ~1 hr after breakfast via her CGM. Explained to pt that she needs to look at her meal tkt and enter the exact total CHO count as stated on her meal tkt.
Will make no changes to pump settings at this time.
Her infusion set is due to be changed today, she states that her Family is on their way to the hospital to bring in new infusion set and insulin.
discussed with pt and Nurse re: bedside insulin pump work sheet.
Diabetes History
- -
Type of Diabetes: 1
Pre-Admission Diabetes Regimen
08/05/23 08/06/23
14:03 05:23
Creatinine 0.8 0.9
Lab Results
Hemoglobin A1c 7.7 % (4.0-5.6) H 08/06/23 05:23
Insulin Pump Settings
IP Diabetes Regimen
08/05/23 08/05/23 08/06/23
14:03 21:45 05:23
Glucose 273 H 88
POC Glucose 162 H
08/06/23
08:27
Glucose
POC Glucose 102 H
Patient Education
[2023-08-06 12:14] LABS: Glucose - Point of Care 177 mg/dl (70-99)
--- NOTE | 2023-08-06 12:51 | CM ---
CM met with pt at bedside
Pt lives with her in a 2 story home
Independent, driving
Denies DME in home
Reports past snf - over 10 years ago - [place] [address]
Denies past Home care
PCP - Dr Bill Chance
Pharm - [facility], [place]
Will have ride at d/c
Plan - anticipate home no needs
--- NOTE | 2023-08-06 13:24 | W.PN.HOSP.TC ---
Today's Communication/Plan
-
Diuresis
Increase lasix
Await ECHO
Assessment / Plan
Assessment / Plan
CVS: S1-S2 normal, sm at RHB
Chest: CTA
Abdomen: Soft, NT / Bowel sounds present
Extremities: B/L LE edema, normal pulses
CARE CLINICIAN: Non focal exam
#Acute Heart Failure
-Type unclear
-HFPEF Vs RHF
-VI[facility] HUGO Mar 2023: EF 55-60%
-Likely reason rapid Afib, now in SR
-Continue Lasix but change to 60mg IV BID
-Continue BB
-Cut back Losartan while diuresing ( 100 mg to 50 mg)
-Monitor I&Os and Daily Weights
-ECHO done results pending.
-Consult Cardiology
#Elevated LFTs, suspect related to hepatic congestion in setting of heart failure
-Continue to trend
-Consider further imaging if LFTs do no improve with diuresis
-Recent USS with Steato hepatosis
#Paroxysmal Atrial Fibrillation
-H/O Multiple Ablations and cardioversions
-Last Cardioversion 07/26/23
-Last Ablation 06/19/23
-In SR now
-Continue Eliquis for anticoagulation
-Continue Rythmol and Metoprolol for rhythm/rate control
-Advised pt to Do Sleep study as OP
#Essential Hypertension
-Continue losartan (50 mg) and metoprolol
#Diabetes Mellitus
-Continue patient's own insulin pump
-She is comfortable managing
-New supplies being brought in today
-Diabetic Management NIGHT CLERK AUDITOR following.
-Uses NovoLog Insulin
-A1C 7.7
#Normocytic Anemia
-Mild KYLE
-Replace PO
#GERD
-Continue Protonix
#Obesity Class II
-Encourage weight loss
-Encouraged patient to obtain sleep study as outpatient
#H/O Migraines
#Ex Smoker
#DVT prophylaxis: Eliquis
#Code Status: Full Code
D/W Cards
D/W RN
Anticipated Discharge: > 48 hours
Subjective/Interval History
-
Date of Service: August 06, 2023
Objective Data
-
Labs:
Laboratory Results
08/06/23
05:23
WBC 3.9 L
Hgb 10.2 L
Hct 32.5 L
Plt Count 162
Sodium 138
Potassium 3.7
Chloride 104
Carbon Dioxide 30
BUN 25 H
Creatinine 0.9
Glucose 88
Calcium 8.5
Total Bilirubin 1.3
AST 77 H
ALT 110 H
Alkaline Phosphatase 221 H
Vital Signs:
Vital Signs
Temp Pulse Resp BP Pulse Ox
97.9 F 61 16 129/56 95
08/06/23 11:00 08/06/23 11:00 08/06/23 11:00 08/06/23 11:00 08/06/23 11:00
I&O
08/05/23 08/06/23 08/07/23
06:59 06:59 06:59
Output Total 1700 / 1700
Balance -1700 / -1700
[2023-08-06] MEDS: FEOSOL 325 MG PO (13:40)
[2023-08-06] MEDS: PT'S OWN INSULIN PUMP - NovoLOG 8.90000000000000036 UNIT SC (13:41)
[2023-08-06] MEDS: PT'S OWN INSULIN PUMP - NovoLOG 6.5 UNIT SC (13:42)
--- NOTE | 2023-08-06 15:14 | CON.CAR ---
Addendum entered and electronically signed by Clifton Rodgers MD 08/06/23 16:38:
I saw and examined the patient.
The WAREHOUSE FORKLIFT OPERATOR or PA's note was reviewed and I agree with the note.
Comment: General: Well developed, well nourished in NAD.
Neck: Supple, no JVD, HJR, carotids +2 B/L, no bruits bilaterally.
Heart: Non displaced PMI, RRR, no murmurs, No S3, S4, no rubs.
Lungs: Clear to auscultation bilaterally, no wheeze, rhonchi, rubs bilaterally,
normal expiratory phase.
Abdomen: Normal bowel sounds, soft, non-tender, non-distended.
Extremities: Mild edema bilaterally.
Neuro: Grossly nonfocal, awake, alert and oriented x3.
Amina has a history of chronic diastolic CHF, A-fib status post PVI in 2013 and 2023 on chronic propafenone and Eliquis, hypertension, diabetes, obesity. She presents with worsening shortness of breath and approximate 13 pound weight gain. She has
had some diuresis and feels better. She she still feels that she has volume overload. She claims her dry weight is approximately 222 pounds and is currently 229 pounds. Lasix has been increased. Check echocardiogram
Original Note:
Consultation
Consultation Request
Date/Time Consultation Requested: 08/05/23 at 2005
Date/Time Consultation Performed: 08/06/23 at 1130
Requesting Provider: Dr. Scott
Performing Provider: Dr. Rodgers
Reason for Consultation: Acute HF
Medical History
-
History of Present Illness:
Patient came to [facility] yesterday with GEORGE and is now admitted with acute HF and cardiology has been consulted. Patient has a h/o paroxysmal Afib and had PVI 06/19/23, but had a symptomatic recurrence of Afib 07/17/23 so she was started on propafenone
and then had successful CV 07/26/23. Patient was then evaluated in [facility] 07/29/23 for chest pain which seemed to start after CV and ECG in the ER showed SR and abdominal u/s suggested fatty liver, but no other findings and patient was discharged to home.
Patient was seen in the office 07/31/23 and ECG showed ongoing SR, but she reported GEORGE and chest burning. Weight was up 11 lbs in 2 weeks and there was concern for acute HF and patient was asked to increase Lasix to 40 BID for 2 days and then 40 mg
daily thereafter, prior to that patient was taking Lasix 20 mg PO daily. Cardiology office called the patient to check on her 08/05/23 and patient reported initial weight loss and then gained weight back and ongoing SOB so patient was recommended ER
evaluation. In [facility] patient's pro-BNP was 1840 which is high for her, but CXR was stable. Patient reports symptomatic improvement in SOB with Lasix IV thus far.
PMH:
Chronic HFpEF
Paroxysmal Afib
s/p PVI 12/22/13
s/p PVI 06/19/23
Chronic propafenone therapy
Chronic Eliquis OAC
HTN
DM 2
Obese, BMI 37
Past Medical History
Past Medical History: Other (in HPI)
Past Surgical History: Appendectomy and Cardiac (PVI)
Social History
Tobacco: Former Smoker
Alcohol: Occasional
Drug: None
Personal:
Living: With Family
Family History
Family History: CAD (and CHF)
Allergies / Home Medications
Allergy/AdvReac Type Severity Reaction Status Date / Time
adhesive [Adhesive] Allergy Rash/SKIN Verified 08/05/23 20:09
RED
crisaborole [From Eucrisa] Allergy Rash Verified 08/05/23 13:53
sulfamethoxazole Allergy GI upset Verified 08/05/23 13:53
[From Bactrim]
trimethoprim [From Bactrim] Allergy GI upset Verified 08/05/23 13:53
Medication Instructions Recorded Confirmed Type
metoprolol tartrate 25 mg tablet 50 mg PO BID Blood pressure 01/10/14 08/05/23 History
losartan 100 mg tablet (Cozaar) 100 mg PO DAILY Blood pressure 01/14/21 08/05/23 History
apixaban 5 mg tablet (Eliquis) 5 mg PO BID #60 tabs 05/28/23 08/05/23 Rx
propafenone 150 mg tablet 150 mg PO TID Arrhythmia 07/26/23 08/05/23 History
Patient Own Insulin Pump 0 unit SC AC Diabetes 08/05/23 08/05/23 History
furosemide 20 mg tablet (Lasix) 40 mg PO DAILY Fluid 08/05/23 08/05/23 History
Retention/Swelling
pantoprazole 40 mg tablet,delayed 40 mg PO DAILY Gastrointestinal 08/05/23 08/05/23 History
release (Protonix) Issue
Review of Systems
-
History Source: Patient
All other systems: Negative unless noted
Physical Exam
Vital Signs
Temp Pulse Resp BP Pulse Ox
97.9 F 61 16 129/56 95
08/06/23 11:00 08/06/23 11:00 08/06/23 11:00 08/06/23 11:00 08/06/23 11:00
GEN: NAD. AAO x3
HEENT: EOMI
LUNGS: Mostly clear without wheeze or rales
CV: Reg
ABD: soft, BS+
EXT: +2 B/L LE edema. No clubbing, cyanosis or lesions B/L
NEURO: Gross non-focal
SKIN: Warm, dry and pink. No rash
Lab Results
08/06/23 05:23
08/06/23 05:23
Troponin I < 0.012 ng/ml 08/05/23 17:04
Phb-E-Gihkjklwdaw Pept 1840 pg/ml 08/05/23 14:03
Impression / Plan
-
PCP: ANJANA Connelly
Cardiology: Dr. Boles
Impression:
Acute HFpEF
Elevated LFTs
Paroxysmal Afib
s/p PVI 12/22/13
s/p PVI 06/19/23
Chronic propafenone therapy
Chronic Eliquis OAC
HTN
DM 2
Obese, BMI 37
Echo 02/06/23: EF 55% no regional WMA, mild to mod TR with PAP 39 mmHg
Plan:
-Patient came to [facility] yesterday with GEORGE and is now admitted with acute HF and cardiology has been consulted. Patient has a h/o paroxysmal Afib and had PVI 06/19/23, but had a symptomatic recurrence of Afib 07/17/23 so she was started on propafenone
and then had successful CV 07/26/23. Patient was then evaluated in [facility] 07/29/23 for chest pain which seemed to start after CV and ECG in the ER showed SR and abdominal u/s suggested fatty liver, but no other findings and patient was discharged to home.
Patient was seen in the office 07/31/23 and ECG showed ongoing SR, but she reported GEORGE and chest burning. Weight was up 11 lbs in 2 weeks and there was concern for acute HF and patient was asked to increase Lasix to 40 BID for 2 days and then 40 mg
daily thereafter, prior to that patient was taking Lasix 20 mg PO daily. Cardiology office called the patient to check on her 08/05/23 and patient reported initial weight loss and then gained weight back and ongoing SOB so patient was recommended ER
evaluation. In [facility] patient's pro-BNP was 1840 which is high for her, but CXR was stable. Patient reports symptomatic improvement in SOB with Lasix IV thus far.
-Weight is only down 1 lb overnight with Lasix 40 mg IV BID. Hospitalist attending increased Lasix to 60 mg IV BID on 08/06/23. Patient was taking Lasix 20 mg PO daily prior to recent increase in diuretic dosing at cardiology office visit 07/31/23.
-Patient is s/p repeat PVI 06/19/23, then symptomatic recurrence 07/17/23 and started on propafenone, then successful CV 07/26/23. Remains in SR now on ECG reviewed by me.
-Patient feels that her symptoms coincide with staring propafenone 150 mg TID on 07/17/23, but also possible that symptoms due to rapid Afib and then acute HF. Will cont propafenone for now
-Cont Eliquis 5 mg BID (age 67, Cre 0.9, wt 104 kg)
-Repeat echo pending. EF was preserved by echo 02/06/23
-Outpatient doses of losartan 50 mg daily and Lopressor 50 mg BID continued.
-LFTs were also elevated at her ER visit 07/29/23 and there is concern for fatty liver.
[2023-08-06] MEDS: LASIX 60 MG IV (16:57)
[2023-08-06] MEDS: TESSALON PERLES 200 MG PO (17:00)
[2023-08-06 17:01] LABS: Glucose - Point of Care 164 mg/dl (70-99)
[2023-08-06] MEDS: PT'S OWN INSULIN PUMP - NovoLOG 6.70000000000000018 UNIT SC (18:24)
[2023-08-06] MEDS: LOPRESSOR PO (20:17)
[2023-08-06 21:46] LABS: Glucose - Point of Care 176 mg/dl (70-99)
[2023-08-06] MEDS: PT'S OWN INSULIN PUMP - NovoLOG 1.39999999999999991 UNIT SC (21:52)
[2023-08-07 03:46] VITALS: BP 120/50
[2023-08-07 05:35] VITALS: BMI 36.9
[2023-08-07 06:26] LABS: Blood Urea Nitrogen 30 mg/dl (7-17); Carbon Dioxide 28 mmol/L (22-30); Chloride 99 mmol/L (98-107); Estimated Creatinine Clearance 75 ml/min; Glucose 91 mg/dl (70-99); Potassium 3.7 mmol/L (3.5-5.1); Sodium 136 mmol/L (135-145); eGFR > 60.00
[2023-08-07 07:00] VITALS: BP 163/65
[2023-08-07] MEDS: ELIQUIS 5 MG PO ×2 (07:44→20:08)
[2023-08-07] MEDS: PROTONIX 40 MG PO (07:44)
[2023-08-07] MEDS: RYTHMOL 150 MG PO ×3 (07:44→21:42)
[2023-08-07] MEDS: FEOSOL 325 MG PO (07:45)
[2023-08-07] MEDS: LASIX 60 MG IV (07:45)
[2023-08-07] MEDS: COZAAR 50 MG PO ×2 (07:48→20:09)
[2023-08-07] MEDS: LOPRESSOR 50 MG PO ×2 (07:48→20:09)
[2023-08-07 08:17] LABS: Glucose - Point of Care 113 mg/dl (70-99)
--- NOTE | 2023-08-07 09:54 | PN.DE.MGMTRT ---
Insulin Management
- -
08/06/2023: Diabetes Management Consult:
67 year old female admitted 08/04 with chest pain and diarrhea.
PMH includes: HTN, CAD, a Fib s/p ablation, and T1DM x 40 years.
Prior to admission she was using Tandem tslim X2 with control IQ with NovoLog Insulin and DexCom G67. A1C on admission is 7.7%. She still sees her endocrine Dr. Cordero in the [facility].
Pump settings:
Basal carb ratio correction
12am 1.85 10 30
3am 1.75 10 30
5am 1.35 5 30
6am 1.65 6 30
630am 1.75 5.5 30
8:30am 1.4 5.5 30
12pm 1.1 5 30
6pm 1.2 4.5 30
8pm 1.4 4.5 30
10pm 1.4 4 30
24 hour basal total 34.225 units
Target range 110. Active insulin 5 hours
Glucose has been well controlled, range 88 to 176 yesterday, fasting glucose this AM 91. Patient is alert and oriented, able to discuss insulin pump, she changed infusion set without difficulty. Will make no change to current regimen.
Diabetes History
- -
Type of Diabetes: 1
Pre-Admission Diabetes Regimen
08/07/23
05:32
Creatinine 0.9
Lab Results
Hemoglobin A1c 7.7 % (4.0-5.6) H 08/06/23 05:23
Insulin Pump Settings
IP Diabetes Regimen
08/06/23 08/06/23 08/06/23
12:12 17:00 21:45
Glucose
POC Glucose 177 H 164 H 176 H
08/07/23 08/07/23
05:32 08:16
Glucose 91
POC Glucose 113 H
Meal type: Dinner
Meal type: Lunch
Meal type: Breakfast
Amount consumed: 100%
Amount consumed: 100%
Amount consumed: 100%
Patient Education
[2023-08-07 11:00] VITALS: BP 160/75
--- NOTE | 2023-08-07 12:31 | W.PN.CARDCBS ---
Addendum entered and electronically signed by Zay Boles MD 08/07/23 13:14:
I saw and examined the patient.
The Patient Service Associate's note was reviewed and I agree with the note.
Comment:
GEN: No distress, awake, Ox3
HEENT: supple, anicteric, mmm
LUNGS: scatt rhonchi
CV: Reg, S1/S2, /6 syst LSB, no gallop
ABD: soft, BS+, NT/ND
EXT: No edema
NEURO: Gross non-focal
SKIN: No rash
Plan:
Feeling better, Cont IV lasix for another 24 hours.
Remains in sinus rhythm. Cont Propafenone and Eliquis.
Creat 0.9
Original Note:
Today's Communication / Plan
-
No increase in urine output with higher dose IV Lasix and patient near previous dry weight
Likely d/c to home tomorrow
Impression / Plan
-
PCP: ANJANA Connelly
Cardiology: Dr. Boles
Impression:
Acute HFpEF
Elevated LFTs
Diffuse fatty liver
Paroxysmal Afib
s/p PVI 12/22/13
s/p PVI 06/19/23
Chronic propafenone therapy
Chronic Eliquis OAC
HTN
DM 2
Obese, BMI 37
Echo 02/06/23: EF 55% no regional WMA, mild to mod TR with PAP 39 mmHg
Echo 08/06/23: EF 60-65%, trace MR, mod TR with PAP 40 mmHg, no pericardial effusion
Plan:
-Weight is down 1 lb overnight to 228 lbs. Patient thinks her dry weight is 227 lbs. Cre and BP stable. Cont Lasix 60 mg IV BID. Patient was taking Lasix 20 mg PO daily prior to recent increase in diuretic dosing at cardiology office visit 07/31/23.
-EF stable by echo
-Patient is s/p repeat PVI 06/19/23, then symptomatic recurrence 07/17/23 and started on propafenone, then successful CV 07/26/23. Remains in SR now on ECG reviewed by me.
-Patient feels that her symptoms coincide with staring propafenone 150 mg TID on 07/17/23, but also possible that symptoms due to rapid Afib and then acute HF. Will cont propafenone for now
-Cont Eliquis 5 mg BID (age 67, Cre 0.9, wt 104 kg)
-BP 163/65 prior to morning meds. Will follow BP.
-Outpatient doses of losartan 50 mg daily and Lopressor 50 mg BID continued.
-LFTs were also elevated at her ER visit 07/29/23 and there is concern for fatty liver on abd u/s 07/29/23.
Anticipate d/c to home 08/08/23
HPI: Patient came to [facility] yesterday with GEORGE and is now admitted with acute HF and cardiology has been consulted. Patient has a h/o paroxysmal Afib and had PVI 06/19/23, but had a symptomatic recurrence of Afib 07/17/23 so she was started on
propafenone and then had successful CV 07/26/23. Patient was then evaluated in [facility] 07/29/23 for chest pain which seemed to start after CV and ECG in the ER showed SR and abdominal u/s suggested fatty liver, but no other findings and patient was
discharged to home. Patient was seen in the office 07/31/23 and ECG showed ongoing SR, but she reported GEORGE and chest burning. Weight was up 11 lbs in 2 weeks and there was concern for acute HF and patient was asked to increase Lasix to 40 BID for 2
days and then 40 mg daily thereafter, prior to that patient was taking Lasix 20 mg PO daily. Cardiology office called the patient to check on her 08/05/23 and patient reported initial weight loss and then gained weight back and ongoing SOB so patient
was recommended ER evaluation. In [facility] patient's pro-BNP was 1840 which is high for her, but CXR was stable. Patient reports symptomatic improvement in SOB with Lasix IV thus far.
Progress Note - Sweet Dough Mixer
Subjective
Date of Service: August 07, 2023
She feels a bit better
Objective
Labs:
08/06/23 05:23
08/07/23 05:32
Labs
Hgb 10.2 g/dL (12.0-16.0) L 08/06/23 05:23
Hct 32.5 % (37.0-47.0) L 08/06/23 05:23
Plt Count 162 10^3/uL (130-400) 08/06/23 05:23
PT 19.7 Sec (11.4-14.6) H 08/05/23 14:03
INR 1.69 08/05/23 14:03
APTT 43.8 Sec (23.4-35.0) H 08/05/23 14:03
Sodium 136 mmol/L (135-145) 08/07/23 05:32
Potassium 3.7 mmol/L (3.5-5.1) 08/07/23 05:32
BUN 30 mg/dl (7-17) H 08/07/23 05:32
Creatinine 0.9 mg/dL (0.6-1.0) 08/07/23 05:32
Glucose 91 mg/dl (70-99) 08/07/23 05:32
Troponins
08/05/23
17:04
Troponin I < 0.012
Vital Signs and I&O:
Vital Signs
Temp Pulse Resp BP Pulse Ox
97.7 F 75 18 163/65 97
08/07/23 07:00 08/07/23 07:48 08/07/23 07:00 08/07/23 07:48 08/07/23 07:00
Vital Signs
Temp Pulse Resp BP Pulse Ox
97.7 F 75 18 163/65 97
08/07/23 07:00 08/07/23 07:48 08/07/23 07:00 08/07/23 07:48 08/07/23 07:00
Intake & Output
08/05/23 08/06/23 08/07/23 08/08/23
06:59 06:59 06:59 06:59
Intake Total 1020 / 1020
Output Total 1700 / 1700
Balance -1700 / -1700 1020 / 1020
Physical Exam
Physical Exam
GEN: AAO x3
HEENT: EOMI
LUNGS: No wheeze or rales
CV: Reg
ABD: soft, BS+
EXT: +2 B/L LE edema
NEURO: Gross non-focal
SKIN: No rash
[2023-08-07 13:06] LABS: Glucose - Point of Care 219 mg/dl (70-99)
--- NOTE | 2023-08-07 14:01 | W.PN.HOSP.TC ---
Today's Communication/Plan
-
Pt does not want to do idris bandages
Will do SurgiGrip
Increase Lasix to 80 BID
Assessment / Plan
Assessment / Plan
CVS: S1-S2 normal, sm at RHB
Chest: CTA
Abdomen: Soft, NT / Bowel sounds present
Extremities: B/L LE edema, normal pulses
CULTURE ROOM WORKER: Non focal exam
#Acute Heart Failure
-Type unclear
-HFPEF Vs RHF
-VICTOR HUGO Mar 2023: EF 55-60%
-Likely reason rapid Afib, now in SR
-Continue Lasix but change to 80 mg IV BID, as not much weight loss
-Continue BB
-Losartan changed to 50 BID
-Monitor I&Os and Daily Weights
-ECHO -08/06/2023-normal LV size and function. Mild concentric LVH. EF 60 to 65%. Moderately dilated RA, trace MR, moderate TR, pulmonary hypertension with pulmonary pressure 40 mmHg. No pericardial effusion
- Cardiology following.
#Elevated LFTs, suspect related to hepatic congestion in setting of heart failure
-Continue to trend
-Consider further imaging if LFTs do no improve with diuresis
-Recent USS with Steato hepatosis
#Paroxysmal Atrial Fibrillation
-H/O Multiple Ablations and cardioversions
-Last Cardioversion 07/26/23
-Last Ablation 06/19/23
-In SR now
-Continue Eliquis for anticoagulation
-Continue Rythmol and Metoprolol for rhythm/rate control
-Advised pt to Do Sleep study as OP
#Essential Hypertension
-Continue losartan and metoprolol
#Diabetes Mellitus
-Continue patient's own insulin pump
-She is comfortable managing
-Diabetic Management ASSURANCE MANAGER following.
-Uses NovoLog Insulin
-A1C 7.7
#Normocytic Anemia
-Mild KYLE
-Replace PO
#GERD
-Continue Protonix
#Obesity Class II
-Encourage weight loss
-Encouraged patient to obtain sleep study as outpatient
#H/O Migraines
#Ex Smoker
#DVT prophylaxis: Eliquis
#Code Status: Full Code
D/W RN
Anticipated Discharge: 24 - 48 hours
Subjective/Interval History
-
Date of Service: August 07, 2023
Objective Data
-
Labs:
Laboratory Results
08/07/23
05:32
Sodium 136
Potassium 3.7
Chloride 99
Carbon Dioxide 28
BUN 30 H
Creatinine 0.9
Glucose 91
Calcium 9.0
Vital Signs:
Vital Signs
Temp Pulse Resp BP Pulse Ox
97.9 F 85 17 160/75 95
08/07/23 11:00 08/07/23 11:00 08/07/23 11:00 08/07/23 11:00 08/07/23 11:00
I&O
08/06/23 08/07/23 08/08/23
06:59 06:59 06:59
Intake Total 1020 / 1020
Output Total 1700 / 1700
Balance -1700 / -1700 1020 / 1020
[2023-08-07 15:00] VITALS: BP 137/57
[2023-08-07] MEDS: KCL 20 MEQ PO (15:02)
[2023-08-07] MEDS: PT'S OWN INSULIN PUMP - NovoLOG 8 UNIT SC (15:02)
[2023-08-07] MEDS: PT'S OWN INSULIN PUMP - NovoLOG SC (15:02)
[2023-08-07] MEDS: LASIX 80 MG IV (15:04)
[2023-08-07 16:52] LABS: Glucose - Point of Care 208 mg/dl (70-99)
[2023-08-07] MEDS: PT'S OWN INSULIN PUMP - NovoLOG 11 UNIT SC (18:08)
[2023-08-07 19:25] VITALS: BP 144/56
[2023-08-07] MEDS: PT'S OWN INSULIN PUMP - NovoLOG 10 UNIT SC (21:43)
[2023-08-07 21:51] LABS: Glucose - Point of Care 217 mg/dl (70-99)
[2023-08-07 23:35] VITALS: BP 128/49
[2023-08-08 03:30] VITALS: BP 125/66
[2023-08-08] MEDS: MYLICON 80 MG PO ×2 (05:39→09:06)
[2023-08-08 05:57] LABS: Hematocrit 32.7 % (37.0-47.0); Hemoglobin 10.5 g/dL (12.0-16.0); Mean Corp Hgb Conc. 32.1 g/dL (33.0-37.0); Mean Corpuscular Hgb 26.4 pg (27.0-31.0); Mean Corpuscular Volume 82.2 fL (81.0-99.0); Mean Platelet Volume 10.7 fL (7.4-10.4); Platelet Count 146 10^3/uL (130-400); Red Blood Cell Count 3.98 10^6/uL (4.20-5.40); Red Cell Dist. Width 15.8 % (11.5-14.5); White Blood Cell Count 3.2 10^3/uL (4.8-10.8)
[2023-08-08 06:00] VITALS: BMI 36.6
[2023-08-08 06:18] LABS: ALT (SGPT) 122 U/L (0-35); AST (SGOT) 127 U/L (14-36); Albumin 3.6 g/dl (3.5-5.0); Alkaline Phosphatase 313 U/L (38-126); Blood Urea Nitrogen 31 mg/dl (7-17); Calcium 9.1 mg/dl (8.4-10.2); Carbon Dioxide 29 mmol/L (22-30); Chloride 97 mmol/L (98-107); Estimated Creatinine Clearance 75 ml/min; Glucose 131 mg/dl (70-99); Potassium 4.3 mmol/L (3.5-5.1); Sodium 134 mmol/L (135-145); Total Bilirubin 1.4 mg/dl (0.2-1.3); Total Protein 6.8 g/dl (6.3-8.2); eGFR > 60.00
[2023-08-08 07:00] VITALS: BP 160/72
[2023-08-08 08:31] LABS: Erythrocyte Sed Rate 59 mm/hour (0-20)
[2023-08-08 08:33] LABS: Glucose - Point of Care 118 mg/dl (70-99)
[2023-08-08] MEDS: PROTONIX 40 MG PO (09:05)
[2023-08-08] MEDS: ELIQUIS 5 MG PO ×2 (09:05→20:30)
[2023-08-08] MEDS: LOPRESSOR 50 MG PO ×2 (09:05→20:38)
[2023-08-08] MEDS: COZAAR 50 MG PO ×2 (09:05→20:30)
[2023-08-08] MEDS: RYTHMOL 150 MG PO ×3 (09:05→22:05)
[2023-08-08] MEDS: FEOSOL 325 MG PO (09:05)
[2023-08-08] MEDS: LASIX 80 MG IV ×2 (09:06→16:29)
--- NOTE | 2023-08-08 10:54 | PN.DE.MGMTRT ---
Insulin Management
- -
08/08/2023 Diabetes Management Follow up
67 year old female admitted 08/04 with chest pain and diarrhea.
PMH includes: HTN, CAD, a Fib s/p ablation, and T1DM x 40 years.
Prior to admission she was using Tandem tslim X2 with control IQ with NovoLog Insulin and DexCom G67. A1C on admission is 7.7%. She still sees her endocrine Dr. Cordero in the [facility].
Pump settings:
Basal carb ratio correction
12am 1.85 10 30
3am 1.75 10 30
5am 1.35 5 30
6am 1.65 6 30
630am 1.75 5.5 30
8:30am 1.4 5.5 30
12pm 1.1 5 30
6pm 1.2 4.5 30
8pm 1.4 4.5 30
10pm 1.4 4 30
24 hour basal total 34.225 units
Target range 110. Active insulin 5 hours
Patient is alert and oriented, currently with a nose bleed. She admits to snack last night after dinner, did correct after. Fasting glucose this AM 118. Will make no change to pump settings.
Diabetes History
- -
Type of Diabetes: 1
Pre-Admission Diabetes Regimen
08/08/23
05:35
Creatinine 0.9
Lab Results
Hemoglobin A1c 7.7 % (4.0-5.6) H 08/06/23 05:23
Insulin Pump Settings
IP Diabetes Regimen
08/07/23 08/07/23 08/07/23
13:02 16:50 21:50
Glucose
POC Glucose 219 H 208 H 217 H
08/08/23 08/08/23
05:35 08:32
Glucose 131 H
POC Glucose 118 H
Meal type: Lunch
Meal type: Breakfast
Amount consumed: 100%
Amount consumed: 100%
Patient Education
[2023-08-08 11:00] VITALS: BP 157/67
--- NOTE | 2023-08-08 11:44 | W.HF.CON ---
Heart Failure
- LV Function
Left ventricular function study result: LV Ejection fraction >40%
Ejection Fraction Percentage: 60-65
- ARNI
Patient already on ARNI: No
Heart Failure ARNI Not Indicated: LV Ejection Fraction >/= 40%
- ACEI/ARB
Patient already on ACEI/ARB: Yes
- Beta Kamala
Patient already on Evidence Based Beta Kamala: No
Heart Failure Evidence Based Beta Kamala Not Indicated: LV Ejection Fraction > 40%
- Mineralocorticord Receptor Antagonist
Patient already on MRA: No
Heart Failure MRA Not Indicated: LV Ejection Fraction > 40%
- SGLT-2 Inhibitor
Patient already on SGLT-2 Inhibitor: No
Heart Failure SGLT-2 Inhibitor Not Indicated: LV Ejection Fraction >40%
- Afib Anticoagulation
Patient already on Anticoagulation for Afib: Yes
- NYHA CHF Classification
NYHA CHF Classification Level: Class III - Symptoms w/ min exertion, interferes w/ nml daily activity
- ACC/AHA Stage
ACC/AHA Stage: Stage C: Symptomatic Heart Failure
[2023-08-08] MEDS: PT'S OWN INSULIN PUMP - NovoLOG 10 UNIT SC (12:14)
[2023-08-08 12:54] LABS: Glucose - Point of Care 162 mg/dl (70-99)
--- NOTE | 2023-08-08 13:58 | W.PN.CARDCBS ---
Addendum entered and electronically signed by Diego Fishman MD 08/08/23 14:49:
I saw and examined the patient.
The Packer Inspector's note was reviewed and I agree with the note.
Comment: Briefly, 67-year-old woman past medical history of heart failure with preserved ejection fraction and paroxysmal atrial fibrillation on chronic propafenone who presents in decompensated heart failure
Weight has down trended with IV diuretics however patient is concerned that she is still volume overloaded specifically concerned about abdominal bloating/distention
Will trial a dose of metolazone in addition to IV Lasix today
Monitor weights and renal function
Suspect we can transition to oral diuretics in the next 24 to 48 hours
Original Note:
Today's Communication / Plan
-
Trying a dose of metolazone 2.5 mg with this evening's dose of Lasix, patient with ongoing bloating
Follow Cre and BP
Impression / Plan
-
PCP: ANAJNA Connelly
Cardiology: Dr. Boles
Impression:
Acute HFpEF
Elevated LFTs
Diffuse fatty liver
Paroxysmal Afib
s/p PVI 12/22/13
s/p PVI 06/19/23
Chronic propafenone therapy
Chronic Eliquis OAC
HTN
DM 2
Obese, BMI 37
Echo 02/06/23: EF 55% no regional WMA, mild to mod TR with PAP 39 mmHg
Echo 08/06/23: EF 60-65%, trace MR, mod TR with PAP 40 mmHg, no pericardial effusion
Plan:
-Weight is down 2 lbs and patient is below what was her previous dry weight of 227 lbs, but she continues with bloating and states she feels she needs to diurese more.
-Lasix was increased to 80 mg IV BID on 08/07/23. Will give a dose of metolazone 2.5 mg PO x1 prior to 08/08/23 evening dose of Lasix. Patient was taking Lasix 20 mg PO daily prior to recent increase in diuretic dosing at cardiology office visit
07/31/23.
-Cre stable at 0.9
-EF stable by echo
-Patient is s/p repeat PVI 06/19/23, then symptomatic recurrence 07/17/23 and started on propafenone, then successful CV 07/26/23. Remains in SR now on ECG reviewed by me.
-Patient feels that her symptoms coincide with staring propafenone 150 mg TID on 07/17/23, but also possible that symptoms due to rapid Afib and then acute HF. Will cont propafenone for now
-Cont Eliquis 5 mg BID (age 67, Cre 0.9, wt 104 kg)
-BP remains on the higher side despite continuing her usual outpatient meds losartan 50 mg daily and Lopressor 50 mg BID.
-LFTs were also elevated at her ER visit 07/29/23 and there was fatty liver on abd u/s 07/29/23.
HPI: Patient came to [facility] yesterday with GEORGE and is now admitted with acute HF and cardiology has been consulted. Patient has a h/o paroxysmal Afib and had PVI 06/19/23, but had a symptomatic recurrence of Afib 07/17/23 so she was started on
propafenone and then had successful CV 07/26/23. Patient was then evaluated in [facility] 07/29/23 for chest pain which seemed to start after CV and ECG in the ER showed SR and abdominal u/s suggested fatty liver, but no other findings and patient was
discharged to home. Patient was seen in the office 07/31/23 and ECG showed ongoing SR, but she reported GEORGE and chest burning. Weight was up 11 lbs in 2 weeks and there was concern for acute HF and patient was asked to increase Lasix to 40 BID for 2
days and then 40 mg daily thereafter, prior to that patient was taking Lasix 20 mg PO daily. Cardiology office called the patient to check on her 08/05/23 and patient reported initial weight loss and then gained weight back and ongoing SOB so patient
was recommended ER evaluation. In [facility] patient's pro-BNP was 1840 which is high for her, but CXR was stable. Patient reports symptomatic improvement in SOB with Lasix IV thus far.
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
Subjective
Date of Service: August 08, 2023
She feels bloated
Objective
Labs:
08/08/23 05:35
08/08/23 05:35
Labs
Hgb 10.5 g/dL (12.0-16.0) L 08/08/23 05:35
Hct 32.7 % (37.0-47.0) L 08/08/23 05:35
Plt Count 146 10^3/uL (130-400) 08/08/23 05:35
PT 19.7 Sec (11.4-14.6) H 08/05/23 14:03
INR 1.69 08/05/23 14:03
APTT 43.8 Sec (23.4-35.0) H 08/05/23 14:03
Sodium 134 mmol/L (135-145) L 08/08/23 05:35
Potassium 4.3 mmol/L (3.5-5.1) 08/08/23 05:35
BUN 31 mg/dl (7-17) H 08/08/23 05:35
Creatinine 0.9 mg/dL (0.6-1.0) 08/08/23 05:35
Glucose 131 mg/dl (70-99) H 08/08/23 05:35
Troponins
08/05/23
17:04
Troponin I < 0.012
Vital Signs and I&O:
Vital Signs
Temp Pulse Resp BP Pulse Ox
98.5 F 63 16 157/67 94
08/08/23 11:00 08/08/23 11:00 08/08/23 11:00 08/08/23 11:00 08/08/23 11:00
Vital Signs
Temp Pulse Resp BP Pulse Ox
98.5 F 63 16 157/67 94
08/08/23 11:00 08/08/23 11:00 08/08/23 11:00 08/08/23 11:00 08/08/23 11:00
Intake & Output
08/06/23 08/07/23 08/08/23 08/09/23
06:59 06:59 06:59 06:59
Intake Total 1020 / 1020 847 / 847
Output Total 1700 / 1700
Balance -1700 / -1700 1020 / 1020 847 / 847
Physical Exam
Physical Exam
GEN: AAO x3
HEENT: EOMI
LUNGS: No wheeze or rales
CV: Reg
ABD: soft, BS+
EXT: Trace B/L LE edema
NEURO: Gross non-focal
SKIN: No rash
--- NOTE | 2023-08-08 14:44 | W.PN.HOSP.TC ---
Today's Communication/Plan
-
Diuresis
GI eval
Assessment / Plan
Assessment / Plan
CVS: S1-S2 normal, sm at RHB
Chest: CTA
Abdomen: Soft, NT / Bowel sounds present
Extremities: B/L LE edema, normal pulses
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
#Acute Heart Failure with PEF
-HFPEF Vs RHF
-[facility] Mar 2023: EF 55-60%
-Likely reason rapid Afib, now in SR
-Lasix changed to 80 mg IV BID,
-Cards added Metolozone
-Continue BB
-Losartan changed to 50 BID
-Monitor I&Os and Daily Weights
-ECHO -08/06/2023-normal LV size and function. Mild concentric LVH. EF 60 to 65%. Moderately dilated RA, trace MR, moderate TR, pulmonary hypertension with pulmonary pressure 40 mmHg. No pericardial effusion
- Cardiology following.
#Elevated LFTs, suspect related to hepatic congestion in setting of heart failure
-Continue to trend
-GI eval
-Recent USS with Steato hepatosis
-Check Sed rate and CRP
#Paroxysmal Atrial Fibrillation
-H/O Multiple Ablations and cardioversions
-Last Cardioversion 07/26/23
-Last Ablation 06/19/23
-In SR now
-Continue Eliquis for anticoagulation
-Continue Rythmol and Metoprolol for rhythm/rate control
-Advised pt to Do Sleep study as OP
#Essential Hypertension
-Continue losartan and metoprolol
#Diabetes Mellitus
-Continue patient's own insulin pump
-She is comfortable managing
-Diabetic Management NURSE PRACTICAL following.
-Uses NovoLog Insulin
-A1C 7.7
#Normocytic Anemia
-Mild KYLE
-Replace PO
#GERD
-Continue Protonix
#Obesity Class II
-Encourage weight loss
-Encouraged patient to obtain sleep study as outpatient
#H/O Migraines
#Ex Smoker
#DVT prophylaxis: Eliquis
#Code Status: Full Code
Unclear reasons for CH
Anticipated Discharge: > 48 hours
Subjective/Interval History
-
Date of Service: August 08, 2023
Objective Data
-
Labs:
Laboratory Results
08/08/23
05:35
WBC 3.2 L
Hgb 10.5 L
Hct 32.7 L
Plt Count 146
Sodium 134 L
Potassium 4.3
Chloride 97 L
Carbon Dioxide 29
BUN 31 H
Creatinine 0.9
Glucose 131 H
Calcium 9.1
Total Bilirubin 1.4 H
AST 127 H
ALT 122 H
Alkaline Phosphatase 313 H
Vital Signs:
Vital Signs
Temp Pulse Resp BP Pulse Ox
98.5 F 63 16 157/67 94
08/08/23 11:00 08/08/23 11:00 08/08/23 11:00 08/08/23 11:00 08/08/23 11:00
I&O
08/07/23 08/08/23 08/09/23
06:59 06:59 06:59
Intake Total 1020 / 1020 847 / 847
Balance 1020 / 1020 847 / 847
--- NOTE | 2023-08-08 15:07 | CON.GI ---
Addendum entered and electronically signed by Jan Brennan MD 08/08/23 17:35:
I saw and examined the patient.
The DOOR CAPTAIN or PA's note was reviewed and I agree with the note.
Comment: : 67-year-old female past medical history of diabetes, heart failure, A-fib initially manage June 19 with recurrent A-fib underwent cardiac ablation, ultimately was readmitted back August 04 with weight gain. We are being consulted both
for abnormal LFTs as well as abdominal bloating and discomfort. For the last 24 hours she feels a 'pit in her stomach' at her umbilicus as well as feeling bloated. She is on high-dose diuretics which cardiology is managing. She denies any nausea,
vomiting, having some loose stool due to medications. Her LFTs have been trended show a bilirubin up to 1.4 with no direct check, AST 127, ALT 122, alk phos 313 today. Differential diagnosis for abnormal LFTs include but not limited to her known
fatty liver, congestive hepatopathy, medication induced. Low suspicion, will get Doppler with ultrasound both to ensure she does not have ascites which was not seen on July 31 as well as to ensure no Budd-Chiari. Hepatitis serologies have been
ordered and are pending. She will need a full liver workup done outpatient as well as FibroScan. Upon discharge, she should be sent home with a prescription for LFTs in 1 week so we can continue to trend them. I gave her an appointment August 29 at
11:30 AM with Bee webster physician dietitian assistant with Dr. Isidro who is her outpatient supervisor claims (message sent to office, pt given card, dc summary updated). Dr. Khanna will be on-call tomorrow and will follow.
Original Note:
Consultation
-
Date/Time Consultation Requested: 08/08/23 0804
Date/Time Consultation Performed: 08/08/23 1500
Requesting Provider: Dr. Scott
Performing Provider: Dr. Brennan/NEAL Bess
Reason for Consultation: elevated LFTs
Medical History
Chief Complaint / HPI
Chief Complaint: SOB and weight gain
History of Present Illness:
67-year-old female with past medical history of insulin dependent diabetes, chronic diastolic CHF, hypertension, hyperlipidemia, paroxysmal atrial fibrillation started to have symptomatic Afib in April with increased SOB and had PVI on 06/19/2023
then had symptomatic recurrence of A-fib and was started on propafenone 07/17/23 and had had successful cardioversion on 07/26/2023, she came back to [facility] ER on 07/29/2023 for chest discomfort. She was referred back to the emergency room as she
reported 13 pound increase in her weight, her Lasix was increased and presented back to ER on 08/05/23. We were asked to evaluate for elevated LFTs. The patient states that she was told approximately 2 years ago that she has a fatty liver, other
than that she does not recall ever being told about elevated liver function test. She denies any history of tattoos, piercings, IV drug use. She does enjoy sushi although she has not had some in quite some time. Her only new medication was
Propafenone in June however her LFTs were elevated in May. Patient denies any fevers, chills, nausea, vomiting, melena, hematochezia, dysphagia or dyne aphasia. She denies any early satiety or unintentional weight loss. She did start
having loose stools after starting propafenone. She did start having darker stools after starting oral iron. She does have periodic nosebleeds. She states that she had 2 nosebleeds last evening. The patient's weight is decreasing. She states
that she has not noticed any increased abdominal girth. She mostly notices shortness of breath, dyspnea and inability to walk more than 10 feet without having significant shortness of breath. She had difficulty lying down without having shortness
of breath. She had no difficulty speaking sentences. She did have increased lower extremity edema.
Past Medical History
Past Medical History: Arrhythmias (A-fib), CAD, CHF and HTN
Past Surgical History: Appendectomy and Cardiac (PVI)
Social History
Tobacco: Former Smoker
Alcohol: None
Drug: None
Personal:
Living: With Family
Family History
Family History: Other (No family history of gastrointestinal malignancy or inflammatory bowel disease)
Allergies / Home Medications
Allergy/AdvReac Type Severity Reaction Status Date / Time
adhesive [Adhesive] Allergy Rash/SKIN Verified 08/05/23 20:09
RED
crisaborole [From Eucrisa] Allergy Rash Verified 08/05/23 13:53
sulfamethoxazole Allergy GI upset Verified 08/05/23 13:53
[From Bactrim]
trimethoprim [From Bactrim] Allergy GI upset Verified 08/05/23 13:53
Medication Instructions Recorded
metoprolol tartrate 25 mg tablet 50 mg PO BID Blood pressure 01/10/14
losartan 100 mg tablet (Cozaar) 100 mg PO DAILY Blood pressure 01/14/21
apixaban 5 mg tablet (Eliquis) 5 mg PO BID #60 tabs 05/28/23
propafenone 150 mg tablet 150 mg PO TID Arrhythmia 07/26/23
Patient Own Insulin Pump 0 unit SC AC Diabetes 08/05/23
furosemide 20 mg tablet (Lasix) 40 mg PO DAILY Fluid 08/05/23
Retention/Swelling
pantoprazole 40 mg tablet,delayed 40 mg PO DAILY Gastrointestinal 08/05/23
release (Protonix) Issue
Review of Systems
-
All other systems: A 12 pt ROS was Negative except as stated above in HPI
Vital Signs
Temp Pulse Resp BP Pulse Ox
98.5 F 63 16 157/67 94
08/08/23 11:00 08/08/23 11:00 08/08/23 11:00 08/08/23 11:00 08/08/23 11:00
Physical Exam
Exam
General: No Apparent Distress
HEENT: Anicteric
Respiratory: Clear (decreased at right base)
Cardiac: Regular Rhythm
GI: Soft, Non Tender, Non Distended and Normal Bowel Sounds
Musculoskeletal: Edema (+1 B/L)
Skin: Warm and Dry
Neuro: AO x 3
Psych: Calm
Results
WBC 3.2 10^3/uL (4.8-10.8) L 08/08/23 05:35
Hgb 10.5 g/dL (12.0-16.0) L 08/08/23 05:35
Hct 32.7 % (37.0-47.0) L 08/08/23 05:35
MCV 82.2 fL (81.0-99.0) 08/08/23 05:35
Plt Count 146 10^3/uL (130-400) 08/08/23 05:35
Absolute Neuts (auto) 3.4 10^3/uL (1.4-6.5) 08/05/23 14:03
PT 19.7 Sec (11.4-14.6) H 08/05/23 14:03
INR 1.69 08/05/23 14:03
APTT 43.8 Sec (23.4-35.0) H 08/05/23 14:03
Sodium 134 mmol/L (135-145) L 08/08/23 05:35
Potassium 4.3 mmol/L (3.5-5.1) 08/08/23 05:35
Chloride 97 mmol/L (98-107) L 08/08/23 05:35
Carbon Dioxide 29 mmol/L (22-30) 08/08/23 05:35
BUN 31 mg/dl (7-17) H 08/08/23 05:35
Creatinine 0.9 mg/dL (0.6-1.0) 08/08/23 05:35
Calcium 9.1 mg/dl (8.4-10.2) 08/08/23 05:35
Total Bilirubin 1.4 mg/dl (0.2-1.3) H 08/08/23 05:35
AST 127 U/L (14-36) H 08/08/23 05:35
ALT 122 U/L (0-35) H 08/08/23 05:35
Alkaline Phosphatase 313 U/L (38-126) H 08/08/23 05:35
Diagnostic Image Results:
CXR 08/05/23:
IMPRESSION:
No acute cardiopulmonary process.
US Abd 07/29/23:
IMPRESSION: Borderline hepatomegaly with findings suggesting diffuse fatty liver.
No findings to confirm cholelithiasis. Suspected mild gallbladder wall thickening. No findings to suggest biliary tract dilatation. Negative sonographic Donis's sign.
Pancreas, abdominal aorta and IVC significantly obscured, most likely by overlying bowel gas.
Electronically signed by Davie Day MD 07/29/2023 8:05 PM
Echo 08/06/23:
CONCLUSIONS
�Normal left ventricular size and systolic function. Mild concentric left
�ventricular hypertrophy. No regional wall motion abnormalities are seen. LV
�ejection fraction is 60-65% .
�Moderately dilated right atrium.
�Trace mitral regurgitation.
�Moderate tricuspid regurgitation.
�Mild pulmonary hypertension with estimated pulmonary artery pressure of 40 mmHg
�assuming a right atrial pressure of 15 mmHg.
�There is no pericardial effusion.
�Pleural effusion present.
�Compared to prior echocardiogram from February 06, 2023 there is now evidence
�of pleural effusion
Prior GI Procedures:
EGD: 03/18/2017 ([facility]) - Normal examined duodenum.
�� � � � � � � � � � - No gross lesions in the stomach.
�� � � � � � � � � � - Small hiatal hernia.
�� � � � � � � � � � - Z-line irregular, 37 cm from the incisors. Biopsied. (negative Barretts)
�� � � � � � � � � � - No gross lesions in esophagus.
Colonoscopy: 03/18/2014 ([facility]) �The examined portion of the ileum was normal.
�� � � � � � � � � � - One 4 mm polyp in the transverse colon, removed with a
�� � � � � � � � � � hot snare. Resected and retrieved.
�� � � � � � � � � � - One 4 mm polyp in the transverse colon, removed with a
�� � � � � � � � � � hot snare. Resected and retrieved.
�� � � � � � � � � � - Internal hemorrhoids.
(Bx fragments of Tubular adenoma)
Assessment / Plan
-
67-year-old female with past medical history of insulin dependent diabetes, chronic diastolic CHF, hypertension, hyperlipidemia, paroxysmal atrial fibrillation started to have symptomatic Afib in April with increased SOB and had PVI on 06/19/2023
then had symptomatic recurrence of A-fib and was started on propafenone 07/17/23 and had had successful cardioversion on 07/26/2023, she came back to [facility] ER on 07/29/2023 for chest discomfort. She was referred back to the emergency room as she
reported 13 pound increase in her weight, her Lasix was increased and presented back to ER on 08/05/23. We were asked to evaluate for elevated LFTs.
LFT trend/Cardiac events
Known Hx of fatty liver with normal LFTs last known 01/17/2021 T. bili 0. 7, AST 20, ALT 12, alk phos 71
started to have symptomatic Afib in April with increased SOB
05/29/2023 T Bili 1.1, AST 65 and ALT 127 alk phos 235 weight 103 kg
06/13/2023 t Bili1.1, AST 174, ALT 179 alk phos 292
PVI on 06/19/2023 weight 100 kg
symptomatic recurrence of A-fib and was started on propafenone 07/17/23
successful cardioversion on 07/26/2023
[facility] ER on 07/29/2023 for chest discomfort
07/29/23 tbili 0.9, AST 46, ALT 78 and alk phos 232
13 pound increase in her weight, her Lasix was increased and presented back to ER on 08/05/23. weight 105 kg
08/05/2023 t bili was 1.7, AST 139, ALT 140, alk phos 252
08/06/2023 t bili 1.3, direct 0.2, AST 77, ALT 110, alk phos 221 weight 104 kg
Echo 08/06/23: EF 60-65%, trace MR, mod TR with PAP 40 mmHg, no pericardial effusion .Compared to prior echocardiogram from February 06, 2023 there is now evidence of pleural effusion.
08/08/2023 t bili 1.4, AST 127, ALT 122, alk phos 313 weight 102 kg
--Currently on Lasix 80 mg IV BID. Patient was given a 1 time dose of metolazone 2.5 mg today.
Impression:
Elevated LFTs
Fatty liver on Imaging
HFpEF with acute exacerbation
Paroxysmal Afib s/p PVI 06/19/23, Propofenone initiation on 07/17/23 and CV on 07/26/23
Echo on 08/06/23 with new pleural effusion
Plan:
-Repeat culture of the abdomen with Dopplers
-Check acute hepatitis panel
-Will do autoimmune labs and complete workup as an outpatient
-Continue diuresis as per cardiology
-Repeat LFTs with direct bilirubin
-Will need follow-up with Dr. Isidro as an outpatient. Will send message to office to arrange.
Data Reviewed
-
Radiology: Report Reviewed by me
Old Records: Reviewed
-
-
Thank you for consultation and allowing me to participate in the patient's care. Please call the electrical continuity inspector GI physician during the after hours with any questions or concerns.
[2023-08-08 16:00] VITALS: BP 136/59
[2023-08-08] MEDS: ZAROXOLYN 2.5 MG PO (16:29)
[2023-08-08] MEDS: PT'S OWN INSULIN PUMP - NovoLOG 13 UNIT SC (16:33)
[2023-08-08 17:44] LABS: Glucose - Point of Care 156 mg/dl (70-99)
[2023-08-08] MEDS: PT'S OWN INSULIN PUMP - NovoLOG 11 UNIT SC (19:00)
[2023-08-08 19:20] VITALS: BP 161/69
[2023-08-08 21:01] LABS: Hepatitis B Core Ab, IgM Negative (Negative)
[2023-08-08 21:15] LABS: Glucose - Point of Care 195 mg/dl (70-99)
[2023-08-08 21:35] LABS: Hepatitis B Surface Antigen Negative (Negative)
[2023-08-08 21:53] LABS: Hepatitis B Core Ab, Total Negative (Negative); Hepatitis B Surface Antibody Negative; Hepatitis C Antibody Negative (Negative)
[2023-08-08] MEDS: MELATONIN 5 MG PO (22:05)
[2023-08-08 22:45] LABS: Hepatitis A Antibody, Total Negative (Negative)
[2023-08-08] MEDS: PT'S OWN INSULIN PUMP - NovoLOG 0.5 UNIT SC (22:50)
[2023-08-08 23:35] VITALS: BP 144/52
[2023-08-09] MEDS: MYLICON 80 MG PO (03:41)
[2023-08-09 03:50] VITALS: BP 130/55
[2023-08-09 05:54] VITALS: BMI 36.1
[2023-08-09 07:00] VITALS: BP 124/64
--- NOTE | 2023-08-09 07:22 | PN.DE.MGMTRT ---
Insulin Management
- -
08/09/2023 Diabetes Management F/U:
67 year old female admitted 08/04 with chest pain and diarrhea.
PMH includes: HTN, CAD, A-Fib s/p ablation, and T1DM x 40 years.
Prior to admission she was using Tandem tslim X2 with control IQ with NovoLog Insulin and DexCom G67. A1C on admission is 7.7%. She still sees her endocrine Dr. Cordero in [facility].
Pump settings:
Basal carb ratio correction
12am 1.85 10 30
3am 1.75 10 30
5am 1.35 5 30
6am 1.65 6 30
630am 1.75 5.5 30
8:30am 1.4 5.5 30
12pm 1.1 5 30
6pm 1.2 4.5 30
8pm 1.4 4.5 30
10pm 1.4 4 30
24 hour basal total 34.225 units
Target range 110. Active insulin 5 hours
Pt A/O x3, resting in bed, states hshe didn't sleep well and feels tired, otherwise, offers no other complaints.
Glucose stable and in range, FBG 104 this AM.
Will make no change to pump settings. Pt is independent with administering meal bolus and corrections. insulin pump worksheet at bedside.
Diabetes History
- -
Type of Diabetes: 1
Pre-Admission Diabetes Regimen
Lab Results
Hemoglobin A1c 7.7 % (4.0-5.6) H 08/06/23 05:23
Insulin Pump Settings
IP Diabetes Regimen
08/08/23 08/08/23 08/08/23
08:32 12:52 17:42
POC Glucose 118 H 162 H 156 H
08/08/23
21:14
POC Glucose 195 H
Meal type: Lunch
Meal type: Breakfast
Amount consumed: 100%
Amount consumed: 100%
Patient Education
[2023-08-09 07:35] LABS: Glucose - Point of Care 103 mg/dl (70-99)
[2023-08-09 08:00] LABS: ALT (SGPT) 89 U/L (0-35); AST (SGOT) 62 U/L (14-36); Albumin 3.3 g/dl (3.5-5.0); Alkaline Phosphatase 260 U/L (38-126); Blood Urea Nitrogen 33 mg/dl (7-17); Calcium 8.7 mg/dl (8.4-10.2); Carbon Dioxide 29 mmol/L (22-30); Chloride 97 mmol/L (98-107); Direct Bilirubin 0.3 mg/dl (0.0-0.4); Estimated Creatinine Clearance 61 ml/min; Glucose 104 mg/dl (70-99); Potassium 3.8 mmol/L (3.5-5.1); Sodium 132 mmol/L (135-145); Total Bilirubin 1.3 mg/dl (0.2-1.3); Total Protein 6.5 g/dl (6.3-8.2); eGFR 55.42
[2023-08-09] MEDS: PROTONIX 40 MG PO (08:35)
[2023-08-09] MEDS: FEOSOL 325 MG PO (08:35)
[2023-08-09] MEDS: COZAAR 50 MG PO (08:35)
[2023-08-09] MEDS: PT'S OWN INSULIN PUMP - NovoLOG 11 UNIT SC (08:35)
[2023-08-09] MEDS: LASIX 80 MG IV ×2 (08:36→16:50)
[2023-08-09] MEDS: RYTHMOL 150 MG PO ×3 (08:36→22:03)
[2023-08-09] MEDS: ELIQUIS 5 MG PO ×2 (08:36→20:35)
[2023-08-09] MEDS: LOPRESSOR 50 MG PO ×2 (08:37→20:35)
--- NOTE | 2023-08-09 10:16 | W.PN.CARDCBS ---
Addendum entered and electronically signed by Diego Fishman MD 08/09/23 12:00:
I saw and examined the patient.
The Child Development Instructor's note was reviewed and I agree with the note.
Comment: Briefly, 67-year-old woman past medical history of heart failure preserved ejection fraction and proximal atrial fibrillation presenting in decompensated heart failure
Volume status seems reasonable on exam and she is currently on room air satting in the high 90s
With IV diuresis her weight seems to be approaching dry weight of 222 pounds
Creatinine is uptrending
Plan to transition to p.o. Lasix tomorrow
Would discharge on lasix 80mg daily and continue other home cardiac meds at prior doses
Outpatient follow-up has been arranged
We will sign off, please recall as needed
Original Note:
Today's Communication / Plan
-
Likely close to transitioning to PO lasix in next 24 hours.
Continue Eliquis and propafenone
Continue losartan and metoprolol
Follow up arranged
Impression / Plan
-
PCP: ANJANA Connelly
Cardiology: Dr. Boles
Impression:
Acute HFpEF
Elevated LFTs
Diffuse fatty liver
Paroxysmal Afib
s/p PVI 12/22/13
s/p PVI 06/19/23
Chronic propafenone therapy
Chronic Eliquis OAC
HTN
DM 2
Obese, BMI 37
Echo 02/06/23: EF 55% no regional WMA, mild to mod TR with PAP 39 mmHg
Echo 08/06/23: EF 60-65%, trace MR, mod TR with PAP 40 mmHg, no pericardial effusion
Plan:
-Presented with GEORGE and found to be in acute heart failure. Previous dry weight was 227lbs, however she continues with bloating and feels as if she needs to diurese more.
-Lasix increased to 80mg IV BID 08/06 and she was given a dose of metolazone in PM 08/07. She feels this helped with her diuresis and had better urine output overnight.
-Creat up slightly to 1.1 on 08/08. Weight down another 3lbs overnight to 223lbs. Would consider transitioning to PO lasix within the next 24-48 hours.
-EF stable at 60-65% by echo 08/05 as noted above.
-Continue medical therapy with lopressor and losartan. BP and heart rate stable.
-Patient is s/p repeat PVI 06/19/23, then had symptomatic recurrence 07/17/23 and started on propafenone, then successful CV 07/26/23. Remains in SR on review of telemetry.
-Patient feels that her symptoms coincide with staring propafenone 150 mg TID on 07/17/23, but also possible that symptoms due to rapid Afib and then acute HF. Will cont propafenone for now.
-Cont Eliquis 5 mg BID for anticoagulation
-LFTs were also elevated at her ER visit 07/29/23 and there was fatty liver on abd u/s 07/29/23. GI consulted and saw patient 08/07. US abdomen w/ doppler pending.
-Follow up arranged w/ cardiology.
HPI: Patient came to [facility] yesterday with GEORGE and is now admitted with acute HF and cardiology has been consulted. Patient has a h/o paroxysmal Afib and had PVI 06/19/23, but had a symptomatic recurrence of Afib 07/17/23 so she was started on
propafenone and then had successful CV 07/26/23. Patient was then evaluated in [facility] 07/29/23 for chest pain which seemed to start after CV and ECG in the ER showed SR and abdominal u/s suggested fatty liver, but no other findings and patient was
discharged to home. Patient was seen in the office 07/31/23 and ECG showed ongoing SR, but she reported GEORGE and chest burning. Weight was up 11 lbs in 2 weeks and there was concern for acute HF and patient was asked to increase Lasix to 40 BID for 2
days and then 40 mg daily thereafter, prior to that patient was taking Lasix 20 mg PO daily. Cardiology office called the patient to check on her 08/05/23 and patient reported initial weight loss and then gained weight back and ongoing SOB so patient
was recommended ER evaluation. In [facility] patient's pro-BNP was 1840 which is high for her, but CXR was stable. Patient reports symptomatic improvement in SOB with Lasix IV thus far.
Progress Note - Outpatient Case Manager
Subjective
Date of Service: August 09, 2023
Feeling somewhat better today, although still has some abdominal bloating.
Objective
Labs:
08/08/23 05:35
08/09/23 07:10
Labs
Hgb 10.5 g/dL (12.0-16.0) L 08/08/23 05:35
Hct 32.7 % (37.0-47.0) L 08/08/23 05:35
Plt Count 146 10^3/uL (130-400) 08/08/23 05:35
PT 19.7 Sec (11.4-14.6) H 08/05/23 14:03
INR 1.69 08/05/23 14:03
APTT 43.8 Sec (23.4-35.0) H 08/05/23 14:03
Sodium 132 mmol/L (135-145) L 08/09/23 07:10
Potassium 3.8 mmol/L (3.5-5.1) 08/09/23 07:10
BUN 33 mg/dl (7-17) H 08/09/23 07:10
Creatinine 1.1 mg/dL (0.6-1.0) H 08/09/23 07:10
Glucose 104 mg/dl (70-99) H 08/09/23 07:10
Vital Signs and I&O:
Vital Signs
Temp Pulse Resp BP Pulse Ox
97.6 F 61 12 124/64 97
08/09/23 07:00 08/09/23 07:00 08/09/23 07:00 08/09/23 07:00 08/09/23 07:00
Vital Signs
Temp Pulse Resp BP Pulse Ox
97.6 F 61 12 124/64 97
08/09/23 07:00 08/09/23 07:00 08/09/23 07:00 08/09/23 07:00 08/09/23 07:00
Intake & Output
08/07/23 08/08/23 08/09/23 08/10/23
06:59 06:59 06:59 06:59
Intake Total 1020 / 1020 847 / 847 740 / 740
Balance 1020 / 1020 847 / 847 740 / 740
Physical Exam
Physical Exam
GEN: AAO x3
HEENT: EOMI
LUNGS: No wheeze or rales
CV: Reg, no murmur/rubs
ABD: soft, BS+
EXT: Trace B/L LE edema
NEURO: Gross non-focal
SKIN: Warm, dry, no rash
[2023-08-09 11:00] VITALS: BP 138/50
--- NOTE | 2023-08-09 11:19 | W.PN.GI.CBS2 ---
Addendum entered and electronically signed by Sergo Khanna MD 08/09/23 16:37:
I saw and examined the patient.
The WEIGHMASTER LEAD or PA's note was reviewed and I agree with the note.
Comment: Denies abd pain, no complaints
ABD soft NT
US Doppler shows appropriate flow in protal vein. Greater than typical pulsatility in portal and hepatic vein waveforms likely due to tricuspid regurgitation
REC:
LFTs significantly improved, likely due to hepatic congestion, responding to diuresis
F/U with GI as outpt to confirm eventual normalization after d/c August 29 with PATRICIA Mendosa
Will sign off. Please call back if needed
Original Note:
Today's Communication / Plan
-
Await US Abd with dopplers
Assessment / Plan
-
67-year-old female with past medical history of insulin dependent diabetes, chronic diastolic CHF, hypertension, hyperlipidemia, paroxysmal atrial fibrillation started to have symptomatic Afib in April with increased SOB and had PVI on 06/19/2023
then had symptomatic recurrence of A-fib and was started on propafenone 07/17/23 and had had successful cardioversion on 07/26/2023, she came back to [facility] on 07/29/2023 for chest discomfort. She was referred back to the emergency room as she
reported 13 pound increase in her weight, her Lasix was increased and presented back to ER on 08/05/23. We were asked to evaluate for elevated LFTs.
LFT trend/Cardiac events
Known Hx of fatty liver with normal LFTs last known 01/17/2021 T. bili 0. 7, AST 20, ALT 12, alk phos 71
started to have symptomatic Afib in April with increased SOB
05/29/2023 T Bili 1.1, AST 65 and ALT 127 alk phos 235 weight 103 kg
06/13/2023 t Bili1.1, AST 174, ALT 179 alk phos 292
PVI on 06/19/2023 weight 100 kg
symptomatic recurrence of A-fib and was started on propafenone 07/17/23
successful cardioversion on 07/26/2023
[facility] ER on 07/29/2023 for chest discomfort
07/29/23 tbili 0.9, AST 46, ALT 78 and alk phos 232
13 pound increase in her weight, her Lasix was increased and presented back to ER on 08/05/23. weight 105 kg
08/05/2023 t bili was 1.7, AST 139, ALT 140, alk phos 252
08/06/2023 t bili 1.3, direct 0.2, AST 77, ALT 110, alk phos 221 weight 104 kg
Echo 08/06/23: EF 60-65%, trace MR, mod TR with PAP 40 mmHg, no pericardial effusion .Compared to prior echocardiogram from February 06, 2023 there is now evidence of pleural effusion.
08/08/2023 t bili 1.4, AST 127, ALT 122, alk phos 313 weight 102 kg
--Currently on Lasix 80 mg IV BID. Patient was given a 1 time dose of metolazone 2.5 mg today.
Impression:
Elevated LFTs
Fatty liver on Imaging
HFpEF with acute exacerbation
Paroxysmal Afib s/p PVI 06/19/23, Propofenone initiation on 07/17/23 and CV on 07/26/23
Echo on 08/06/23 with new pleural effusion
Plan:
-Await US of the abdomen with Dopplers
-Will do autoimmune labs and complete workup as an outpatient
-Continue diuresis as per cardiology
-Follow up August 29 at 11:30 AM with PATRICIA Mendosa
Subjective
Subjective
Date of Service: August 09, 2023
Patient without any GI complaints. Weight 101.5 down from 102.7. T Bili 1.3, D Bili 0.3, AST 62, ALT 89, Alk Phos 260. Acute Hep panel negative. Awaiting US abd with dopplers. Patient has follow up appt on August 29 at 11:30 AM with PATRICIA Mendosa
with Dr. Isidro
Objective
Data Reviewed
Laboratory Data:
Laboratory Results
08/08/23 05:35
08/09/23 07:10
Laboratory Results
PT 19.7 Sec (11.4-14.6) H 08/05/23 14:03
INR 1.69 08/05/23 14:03
APTT 43.8 Sec (23.4-35.0) H 08/05/23 14:03
Magnesium 1.9 mg/dl (1.6-2.3) 08/06/23 05:23
Total Bilirubin 1.3 mg/dl (0.2-1.3) 08/09/23 07:10
AST 62 U/L (14-36) H 08/09/23 07:10
ALT 89 U/L (0-35) H 08/09/23 07:10
Alkaline Phosphatase 260 U/L (38-126) H 08/09/23 07:10
Vital Signs and I&O:
Vital Signs
Temp Pulse Resp BP Pulse Ox
98.2 F 58 16 138/50 95
08/09/23 11:00 08/09/23 11:00 08/09/23 11:00 08/09/23 11:00 08/09/23 11:00
I&O
08/08/23 08/09/23 08/10/23
06:59 06:59 06:59
Intake Total 847 / 847 740 / 740
Balance 847 / 847 740 / 740
Physical Exam
Physical Exam
HEENT: Moist mucous membranes
Cardiology: Normal Sinus Rhythm
Pulmonary: Clear
GI: Soft, Non Distended, Non Tender and Normal Bowel Sounds
Extremities: Edema (trace)
Neuro: Non Focal
--- NOTE | 2023-08-09 12:07 | W.PN.HOSP.TC ---
Today's Communication/Plan
-
Hold Losartan
USS
Continue Diuresis
Labs in am
Assessment / Plan
Assessment / Plan
CVS: S1-S2 normal, sm at RHB
Chest: CTA
Abdomen: Soft, NT / Bowel sounds present
Extremities: B/L LE edema better
CATH LAB TECH: Non focal exam
#Acute Heart Failure with PEF
-VICTOR HUGO Mar 2023: EF 55-60%
-Likely reason rapid Afib, now in SR
-Lasix changed to 80 mg IV BID,
-Change to Lasix 80 PO daily tomorrow per cards
-Continue BB
-Losartan changed to 50 BID-Hold
-Monitor I&Os and Daily Weights
-ECHO -08/06/2023-normal LV size and function. Mild concentric LVH. EF 60 to 65%. Moderately dilated RA, trace MR, moderate TR, pulmonary hypertension with pulmonary pressure 40 mmHg. No pericardial effusion
- Cardiology following.
#Elevated LFTs, suspect related to hepatic congestion in setting of heart failure
-Continue to trend
-GI eval
-Recent USS with Steato hepatosis
-Doppler per GI
-Better now
#Paroxysmal Atrial Fibrillation
-H/O Multiple Ablations and cardioversions
-Last Cardioversion 07/26/23
-Last Ablation 06/19/23
-In SR now
-Continue Eliquis for anticoagulation
-Continue Rythmol and Metoprolol for rhythm/rate control
-Advised pt to Do Sleep study as OP
#Essential Hypertension
-Continue losartan and metoprolol
#Pulm HTN- Needs work up as OP -Pulm eval.
#Diabetes Mellitus
-Continue patient's own insulin pump
-She is comfortable managing
-Diabetic Management FULL FASHIONED GARMENT KNITTER following.
-Uses NovoLog Insulin
-A1C 7.7
#Normocytic Anemia
-Mild KYLE
-Replace PO
#GERD
-Continue Protonix
#Obesity Class II
-Encourage weight loss
-Encouraged patient to obtain sleep study as outpatient
#H/O Migraines
#Ex Smoker
#DVT prophylaxis: Eliquis
#Code Status: Full Code
Anticipated Discharge: Within 24 hours
Subjective/Interval History
-
Date of Service: August 09, 2023
Objective Data
-
Labs:
Laboratory Results
08/09/23
07:10
Sodium 132 L
Potassium 3.8
Chloride 97 L
Carbon Dioxide 29
BUN 33 H
Creatinine 1.1 H
Glucose 104 H
Calcium 8.7
Total Bilirubin 1.3
AST 62 H
ALT 89 H
Alkaline Phosphatase 260 H
Vital Signs:
Vital Signs
Temp Pulse Resp BP Pulse Ox
98.2 F 58 16 138/50 95
08/09/23 11:00 08/09/23 11:00 08/09/23 11:00 08/09/23 11:00 08/09/23 11:00
I&O
08/08/23 08/09/23 08/10/23
06:59 06:59 06:59
Intake Total 847 / 847 740 / 740
Balance 847 / 847 740 / 740
[2023-08-09 12:09] LABS: Glucose - Point of Care 189 mg/dl (70-99)
[2023-08-09] MEDS: LASIX IV (13:05)
[2023-08-09] MEDS: PT'S OWN INSULIN PUMP - NovoLOG 16 UNIT SC (14:06)
[2023-08-09 15:00] VITALS: BP 135/53
--- NOTE | 2023-08-09 16:20 | CM ---
CM following for d/c planning
Continuing to diurese
CM will follow for d/c planning
Plan - anticipate home no needs
[2023-08-09 17:31] LABS: Glucose - Point of Care 179 mg/dl (70-99)
[2023-08-09] MEDS: PT'S OWN INSULIN PUMP - NovoLOG 9 UNIT SC (17:49)
[2023-08-09 20:33] VITALS: BP 133/46
[2023-08-09 22:01] LABS: Glucose - Point of Care 170 mg/dl (70-99)
[2023-08-09] MEDS: PT'S OWN INSULIN PUMP - NovoLOG 0.699999999999999956 UNIT SC (22:03)
[2023-08-09] MEDS: MELATONIN 5 MG PO (22:03)
[2023-08-09 23:30] VITALS: BP 124/60
[2023-08-10 03:40] VITALS: BP 128/37
[2023-08-10 06:08] LABS: Blood Urea Nitrogen 48 mg/dl (7-17); Carbon Dioxide 29 mmol/L (22-30); Chloride 95 mmol/L (98-107); Estimated Creatinine Clearance 51 ml/min; Glucose 109 mg/dl (70-99); Potassium 3.9 mmol/L (3.5-5.1); Sodium 132 mmol/L (135-145); eGFR 45.35
[2023-08-10 07:00] VITALS: BP 148/56
[2023-08-10 08:00] LABS: Glucose - Point of Care 113 mg/dl (70-99)
[2023-08-10] MEDS: PT'S OWN INSULIN PUMP - NovoLOG 12 UNIT SC ×2 (08:24→15:00)
[2023-08-10] MEDS: PROTONIX 40 MG PO (08:25)
[2023-08-10] MEDS: LASIX 80 MG PO (08:25)
[2023-08-10] MEDS: RYTHMOL PO (08:27)
[2023-08-10] MEDS: FEOSOL 325 MG PO (08:27)
[2023-08-10] MEDS: LOPRESSOR PO (08:27)
[2023-08-10] MEDS: ELIQUIS 5 MG PO ×2 (08:28→20:06)
[2023-08-10 11:00] VITALS: BP 147/53
[2023-08-10 12:34] LABS: Glucose - Point of Care 154 mg/dl (70-99)
--- NOTE | 2023-08-10 14:08 | W.PN.HOSP.TC ---
Today's Communication/Plan
-
Hold lasix and Losartan
Labs in am
Assessment / Plan
Assessment / Plan
CVS: S1-S2 normal, sm at RHB
Chest: CTA
Abdomen: Soft, NT / Bowel sounds present
Extremities: B/L LE edema better, still there
SALES CLERK: Non focal exam
Still feels short of breath when she walks to the bathroom
#Acute Heart Failure with PEF
-Also suspect an element of right heart failure-NOS
-VICTOR HUGO Mar 2023: EF 55-60%
-Likely reason rapid Afib, now in SR
-Lasix changed to 80 mg IV BID,
-Change to Lasix 80 PO daily tomorrow per cards
-Continue BB
-Losartan changed to 50 BID-Hold
-Monitor I&Os and Daily Weights
-ECHO -08/06/2023-normal LV size and function. Mild concentric LVH. EF 60 to 65%. Moderately dilated RA, trace MR, moderate TR, pulmonary hypertension with pulmonary pressure 40 mmHg. No pericardial effusion
-Needs PFTs, sleep study, pulmonary evaluation at some point
- Cardiology following.
#Elevated LFTs, suspect related to hepatic congestion in setting of heart failure
-Continue to trend
-GI eval
-Recent USS with Steato hepatosis
-Doppler per GI-negative
-Better now
#Paroxysmal Atrial Fibrillation
-H/O Multiple Ablations and cardioversions
-Last Cardioversion 07/26/23
-Last Ablation 06/19/23
-In SR now
-Continue Eliquis for anticoagulation
-Continue Rythmol and Metoprolol for rhythm/rate control
-Advised pt to Do Sleep study as OP
#Essential Hypertension
-Continue metoprolol
-Hold losartan
#Pulm HTN- Needs work up as OP -Pulm eval.
#Diabetes Mellitus
-Continue patient's own insulin pump
-She is comfortable managing
-Diabetic Management RETAIL SERVICE TECHNICIAN following.
-Uses NovoLog Insulin
-A1C 7.7
#Normocytic Anemia
-Mild KYLE
-Replace PO
#GERD
-Continue Protonix
#Obesity Class II
-Encourage weight loss
-Encouraged patient to obtain sleep study as outpatient
#H/O Migraines
#Ex Smoker
#DVT prophylaxis: Eliquis
#Code Status: Full Code
Spoke to patient's and updated. All questions answered.
Anticipated Discharge: 24 - 48 hours
Subjective/Interval History
-
Date of Service: August 10, 2023
Objective Data
-
Labs:
Laboratory Results
08/10/23
05:34
Sodium 132 L
Potassium 3.9
Chloride 95 L
Carbon Dioxide 29
BUN 48 H
Creatinine 1.3 H
Glucose 109 H
Calcium 9.0
Vital Signs:
Vital Signs
Temp Pulse Resp BP Pulse Ox
97.9 F 57 20 147/53 94
08/10/23 11:00 08/10/23 11:00 08/10/23 11:00 08/10/23 11:00 08/10/23 11:00
I&O
08/09/23 08/10/23 08/11/23
06:59 06:59 06:59
Intake Total 740 / 740 840 / 840
Balance 740 / 740 840 / 840
[2023-08-10 15:00] VITALS: BP 139/57
[2023-08-10] MEDS: REFRESH EYE DROPS (PF) 1 DROPS OPHTH ×2 (15:01→21:44)
[2023-08-10] MEDS: RYTHMOL 150 MG PO ×2 (15:02→21:42)
[2023-08-10 16:56] LABS: Glucose - Point of Care 169 mg/dl (70-99)
[2023-08-10] MEDS: PT'S OWN INSULIN PUMP - NovoLOG 14 UNIT SC (18:08)
[2023-08-10 20:00] VITALS: BP 150/66
[2023-08-10] MEDS: LOPRESSOR 50 MG PO (20:06)
[2023-08-10 21:20] LABS: Glucose - Point of Care 222 mg/dl (70-99)
[2023-08-10] MEDS: MELATONIN 5 MG PO (21:41)
[2023-08-10] MEDS: PT'S OWN INSULIN PUMP - NovoLOG 0.429999999999999993 UNIT SC (21:42)
[2023-08-10] MEDS: MYLICON 80 MG PO (21:43)
[2023-08-10 23:13] VITALS: BP 124/37
[2023-08-11 03:28] VITALS: BP 137/65
[2023-08-11 05:20] LABS: Hematocrit 34.8 % (37.0-47.0); Hemoglobin 10.8 g/dL (12.0-16.0); Mean Corpuscular Hgb 25.8 pg (27.0-31.0); Mean Corpuscular Volume 83.3 fL (81.0-99.0); Mean Platelet Volume 10.6 fL (7.4-10.4); Platelet Count 151 10^3/uL (130-400); Red Blood Cell Count 4.18 10^6/uL (4.20-5.40); Red Cell Dist. Width 15.9 % (11.5-14.5); White Blood Cell Count 2.8 10^3/uL (4.8-10.8)
[2023-08-11 05:27] VITALS: BMI 35.4
[2023-08-11 05:50] LABS: Blood Urea Nitrogen 53 mg/dl (7-17); Calcium 9.2 mg/dl (8.4-10.2); Carbon Dioxide 32 mmol/L (22-30); Chloride 92 mmol/L (98-107); Estimated Creatinine Clearance 60 ml/min; Glucose 102 mg/dl (70-99); Sodium 135 mmol/L (135-145); eGFR 55.42
[2023-08-11 07:00] VITALS: BP 149/58
[2023-08-11 07:57] LABS: Glucose - Point of Care 124 mg/dl (70-99)
[2023-08-11] MEDS: ELIQUIS 5 MG PO (08:37)
[2023-08-11] MEDS: PROTONIX 40 MG PO (08:37)
[2023-08-11] MEDS: FEOSOL 325 MG PO (08:38)
[2023-08-11] MEDS: LOPRESSOR 50 MG PO (08:38)
[2023-08-11] MEDS: RYTHMOL 150 MG PO (08:38)
[2023-08-11] MEDS: PT'S OWN INSULIN PUMP - NovoLOG 10 UNIT SC (10:14)
[2023-08-11 11:00] VITALS: BP 121/52
[2023-08-11 12:20] LABS: Glucose - Point of Care 189 mg/dl (70-99)
[2023-08-11] MEDS: TYLENOL 650 MG PO (13:17)
[2023-08-11 13:21] LABS: ALT (SGPT) 67 U/L (0-35); AST (SGOT) 49 U/L (14-36); Albumin 3.7 g/dl (3.5-5.0); Alkaline Phosphatase 292 U/L (38-126); Direct Bilirubin 0.2 mg/dl (0.0-0.4); Total Bilirubin 1.1 mg/dl (0.2-1.3); Total Protein 6.8 g/dl (6.3-8.2)
[2023-08-11] MEDS: PT'S OWN INSULIN PUMP - NovoLOG 15 UNIT SC (14:40)
--- NOTE | 2023-08-11 14:43 | W.PN.HOSP.TC ---
Today's Communication/Plan
-
Discharge
Assessment / Plan
Assessment / Plan
CVS: S1-S2 normal, sm at RHB
Chest: CTA
Abdomen: Soft, NT / Bowel sounds present
Extremities: B/L LE edema better, No redness
CINDER CREW WORKER: Non focal exam
SOB better
#Acute Heart Failure with PEF
-Also suspect an element of right heart failure-NOS
-VICTOR HUGO Mar 2023: EF 55-60%
-Lasix changed to 80 mg IV BID, then to Lasix 80 PO daily
-Continue BB
-Losartan changed to 50 BID-pt aware
-ECHO -08/06/2023-normal LV size and function. Mild concentric LVH. EF 60 to 65%. Moderately dilated RA, trace MR, moderate TR, pulmonary hypertension with pulmonary pressure 40 mmHg. No pericardial effusion
-Needs PFTs, sleep study, pulmonary evaluation -discussed with pt and sister at bed side
#Elevated LFTs, suspect related to hepatic congestion in setting of heart failure
-Trending down
-GI eval
-Recent USS with Steato hepatosis
-Doppler per GI-negative
-With elevated sed rate patient is aware that she may need further workup as outpatient. If this does not improve.
#Paroxysmal Atrial Fibrillation
-H/O Multiple Ablations and cardioversions
-Last Cardioversion 07/26/23
-Last Ablation 06/19/23
-In SR now
-Continue Eliquis for anticoagulation
-Continue Rythmol and Metoprolol for rhythm/rate control
-Advised pt to Do Sleep study as OP
#Essential Hypertension
-Continue metoprolol
-Restart losartan
#Pulm HTN- Needs work up as OP -Pulm eval.
#Diabetes Mellitus
-Continue patient's own insulin pump
-She is comfortable managing
-Diabetic Management CODING ADVISOR following.
-Uses NovoLog Insulin
-A1C 7.7
#Normocytic Anemia
-Mild KYLE
-Replace PO
#GERD
-Continue Protonix
#Obesity Class II
-Encourage weight loss
-Encouraged patient to obtain sleep study as outpatient
#H/O Migraines
#Ex Smoker
#DVT prophylaxis: Eliquis
#Code Status: Full Code
Spoke to sister at bed side
Reviewed that she needs to watch diet, salt and fluid. Lower extremity elevation discussed right seated or in bed.
Also discussed about slowly building up exercise. Maybe she is a candidate for cardiac rehab, discussed when she sees cardiology next time. Discussed about
Pulmonary follow-up. Cardiology follow-up.
Weight loss advised.
She is aware that she still has to lose some more fluid slowly with Lasix.
All questions answered
Discharge time 36 minutes
Anticipated Discharge: Today
Subjective/Interval History
-
Date of Service: August 11, 2023
Objective Data
-
Labs:
Laboratory Results
08/11/23
05:13
WBC 2.8 L
Hgb 10.8 L
Hct 34.8 L
Plt Count 151
Sodium 135
Potassium 4.0
Chloride 92 L
Carbon Dioxide 32 H
BUN 53 H
Creatinine 1.1 H
Glucose 102 H
Calcium 9.2
Total Bilirubin 1.1
AST 49 H
ALT 67 H
Alkaline Phosphatase 292 H
Vital Signs:
Vital Signs
Temp Pulse Resp BP Pulse Ox
97.9 F 62 20 121/52 94
08/11/23 11:00 08/11/23 11:00 08/11/23 11:00 08/11/23 11:00 08/11/23 11:00
I&O
08/10/23 08/11/23 08/12/23
06:59 06:59 06:59
Intake Total 840 / 840 1200 / 1200 480 / 480
Balance 840 / 840 1200 / 1200 480 / 480
--- NOTE | 2023-08-11 14:51 | W.DS.TRANS ---
Addendum entered and electronically signed by Flora Scott MD 08/11/23 16:57:
Dictation- [id number]
Original Note:
DC Summary - Manager Office Services
-
Discharge Instructions:
Sleep Apnea Risk Intermediate
Discharge Diagnosis/Procedures Acute heart failure with preserved ejection
fraction, elevated LFTs, atrial fibrillation,
hypertension, pulmonary hypertension, diabetes,
anemia, GERD, history of migraines
Diet 2 Gram Sodium,Restrict fluids to 64 oz
Activity As tolerated
Driving Restrictions As prior to admission
Bathing Restrictions None
Blood Work cmp 1 week, CBC 1 month
Specialty Instructions Weigh Daily
Instructions: *[facility] Heart Failure Instructions
Stand-Alone Forms:
Changes to Home Medications: Yes
Discharge Medications:
DC Medications w/original date entered in [email or web address]
metoprolol tartrate 25 mg tablet 50 mg PO BID Blood pressure 01/10/14
propafenone 150 mg tablet 150 mg PO TID Arrhythmia 07/26/23
Patient Own Insulin Pump 0 unit SC AC Diabetes 08/05/23
pantoprazole 40 mg tablet,delayed release (Protonix) 40 mg PO DAILY Gastrointestinal Issue 08/05/23
apixaban 5 mg tablet (Eliquis) 5 mg PO BID Blood clot prevention/tx #60 tabs 08/11/23
ferrous sulfate 325 mg (65 mg iron) tablet (FeroSul) 325 mg PO DAILY anemia #0 tabs 08/11/23
furosemide 80 mg tablet 80 mg PO DAILY Fluid retention/Swelling #30 tabs 08/11/23
losartan 50 mg tablet 50 mg PO BID Blood pressure #60 tabs 08/11/23
polyvinyl alcohol-povidone (PF) 1.4 %-0.6 % eye drops in a dropperette (Refresh Classic (PF)) 1 drops ophthalmic (eye) QIDPRN PRN dryness #0 ea 08/11/23
Home Medication Changes
new
Lasix
Pending Results: No
[2023-08-11 15:00] VITALS: BP 123/60
[2023-08-11] MEDS: RYTHMOL PO (15:46)
== END 2023-08-11 16:00 | disposition home or self-care (01) | DRG 291 ==
LOC: 3 WEST ACU 18:24
PROVIDERS: Emergency Medicine; Nurse Practitioner; Physician Assistant Medical; ADMITTING PHYSICIAN Hospitalist; EMERGENCY PHYSICIAN Emergency Medicine; OTHER PHYSICIAN Internal Medicine Cardiovascular Disease; OTHER PHYSICIAN Internal Medicine Gastroenterology
DX: I11.0 Hypertensive heart disease with heart failure (principal); I50.33 Acute on chronic diastolic (congestive) heart failure; I48.0 Paroxysmal atrial fibrillation; Z79.01 Long term (current) use of anticoagulants; D64.9 Anemia, unspecified; K21.9 Gastro-esophageal reflux disease without esophagitis; E66.9 Obesity, unspecified; Z87.891 Personal history of nicotine dependence; E10.9 Type 1 diabetes mellitus without complications; Z68.37 Body mass index [BMI] 37.0-37.9, adult; I27.20 Pulmonary hypertension, unspecified
CPT/HCPCS: 71046; 80048; 80053; 80061; 82248; 82607; 82728; 82746; 82962; 83036; 83540; 83550; 83735; 83880; 84443; 84484; 85025; 85027; 85610; 85652; 85730; 86140; 86704; 86705; 86706; 86708; 86709; 86803; 87340; 93005; 93306; 93975; 96374; 99285; Q9950

== ENCOUNTER → 2023-09-19 | Outpatient (REF) | payer MEDICARE, OTHER, SELFPAY | LOC: DHSLP | PROVIDERS: ATTENDING PHYSICIAN Internal Medicine Critical Care Medicine; FAMILY PHYSICIAN Nurse Practitioner Adult Health | DX: G47.33 Obstructive sleep apnea (adult) (pediatric) (principal) | CPT/HCPCS: 95800 ==

== ENCOUNTER 2023-11-06 06:12 | Day surgery (SDC) | payer MEDICARE, OTHER, SELFPAY ==
[2023-11-06 08:24] VITALS: BP 128/49
[2023-11-06 08:39] VITALS: BMI 34.5
[2023-11-06 08:49] LABS: Glucose - Point of Care 110 mg/dl (70-99)
[2023-11-06 08:50] VITALS: BMI 34.5
[2023-11-06 10:51] VITALS: BP 95/41
[2023-11-06 11:06] LABS: Glucose - Point of Care 140 mg/dl (70-99)
[2023-11-06 11:08] VITALS: BP 90/27
[2023-11-06 11:15] VITALS: BP 88/49
[2023-11-06 11:18] VITALS: BP 96/47
== END 2023-11-06 12:05 | disposition home or self-care (01) ==
LOC: SDS 06:12
PROVIDERS: ATTENDING PHYSICIAN Internal Medicine Gastroenterology
DX: D12.0 Benign neoplasm of cecum (principal); K57.30 Diverticulosis of large intestine without perforation or abscess without bleeding; D50.9 Iron deficiency anemia, unspecified; K29.70 Gastritis, unspecified, without bleeding; K22.89 Other specified disease of esophagus; K44.9 Diaphragmatic hernia without obstruction or gangrene; Z86.010 Personal history of colon polyps; Z79.01 Long term (current) use of anticoagulants
CPT/HCPCS: 45380; 43239; 88305; 82962

== ENCOUNTER 2023-12-11 20:50 | Inpatient (IN) | payer MEDICARE, OTHER, SELFPAY ==
[2023-12-11] VITALS (14 sets, daily range): BP systolic 89–202; BP diastolic 49–81; BMI 27.5; BMI 31.5
[2023-12-11 13:19] LABS: ALT (SGPT) 35 U/L (0-35); AST (SGOT) 37 U/L (14-36); Albumin 4.2 g/dl (3.5-5.0); Alkaline Phosphatase 282 U/L (38-126); Blood Urea Nitrogen 32 mg/dl (7-17); Calcium 9.3 mg/dl (8.4-10.2); Carbon Dioxide 22 mmol/L (22-30); Chloride 106 mmol/L (98-107); Glucose 155 mg/dl (70-99); Potassium 3.9 mmol/L (3.5-5.1); Sodium 141 mmol/L (135-145); Total Bilirubin 1.6 mg/dl (0.2-1.3); Total Protein 7.4 g/dl (6.3-8.2); eGFR > 60.00
[2023-12-11 13:28] LABS: % Basophils 0.7 % (0-2); % Eosinophils 2.6 % (0-6); % Immature Granulocytes 0.2 % (0-0.5); % Lymphocytes 14.5 % (20.5-51.1); % Monocytes 12.9 % (1.7-9.3); % Neutrophils 69.1 % (42.2-75.2); Absolute Eosinophils 0.1 10^3/uL (0-0.7); Absolute Lymphocytes 0.6 10^3/uL (1.2-3.4); Absolute Monocytes 0.6 10^3/uL (0.1-0.6); Hemoglobin 11.5 g/dL (12.0-16.0); Mean Corp Hgb Conc. 32.9 g/dL (33.0-37.0); Mean Corpuscular Hgb 28.2 pg (27.0-31.0); Mean Corpuscular Volume 85.8 fL (81.0-99.0); Nucleated Red Blood Cells % 0 %; Red Blood Cell Count 4.08 10^6/uL (4.20-5.40); Red Cell Dist. Width 14.3 % (11.5-14.5); Troponin I < 0.012 ng/ml; White Blood Cell Count 4.3 10^3/uL (4.8-10.8)
--- NOTE | 2023-12-11 13:38 | ED.GENMED ---
History of Present Illness
General
Chief Complaint: Chest Pain
Time Seen by Provider: 12/11/23 13:14
History of Present Illness
History of Present Illness:
68-year-old female with history of atrial fibrillation on anticoagulants and hypertension presents to the emergency department from her scarfer office for evaluation of chest pain ongoing for the past 10 days. She describes a tightness as well
as orthopnea. Denies any leg swelling or obvious weight gain. Has been compliant with her home meds. No recent fevers or chills
Past History
Past History
ED Past Medical History: Arrthythmia (Atrial fibrillation, atrial flutter), CHF, GERD, HTN and IDDM
ED Past Surgical History: Appendectomy, Cardiac and Gynecological
Social History
Tobacco: Former smoker
Alcohol: Occasional
Family History
Family History: CAD
Review of Systems
Review of Systems
Allergies reviewed?: Yes
All Other Systems: ROS reviewed and negative except as documented in HPI and ROS
Phy Exam
Physical Exam
Physical Exam:
GEN: Well appearing, NAD, WDWN
Eyes: PERRLA, EOMs intact, no scleral icterus
HENT: NCAT, oral mucosa moist, no JVD, no cervical adenopathy.
Lungs: Normal respiratory effort, faint bibasilar crackles and poor inspiratory effort
Cardiac: RRR, no M/R/G, no peripheral edema. Radial pulses 2+ bilat
Neuro: AO x 3, no focal deficits to BUE/BLE, normal sensation throughout
MSK: No gross deformity or ecchymosis. Mild bilateral lower extremity edema bilaterally
Skin: No rashes, petechiae. Normal color, no pallor or jaundice.
Psych: Calm, cooperative, proper hygiene
Scores
Heart Score for Chest Pain Patients
STEMI patient?: No
History: Moderately Suspicious
ECG: Normal
Age: >/= 65 years
Risk Factors: >/= 3 Risk Factors or History of CAD
Troponin: </= Normal Limit
Heart Score for Chest Pain Patients: 5
Heart Score Risk: 20.3% MACE over next 6 weeks
Course
Orders/Labs/Results
Orders:
Orders
12/11/23 12:36
Electrocardiogram (*1) Urgent
Reason for Study: Chest Pain
EKG- Treatment ONCE
12/11/23 12:49
Complete Blood Count/With Diff Urgent
Comprehensive Metabolic Panel Urgent
NT-proBNP Urgent
Comment: PROBNP ADDED ON BY FLOOR 1:20PM 12-11-23
Troponin I Urgent
12/11/23 13:22
Add On- LAB Urgent
Tests Added?: BNP
Add On- LAB Urgent
Tests Added?: Pro BNP
CR Chest - 2 Views Urgent
Comment:
Reason For Exam: SOB
12/11/23 14:18
Furosemide [Lasix] 80 mg IV NOW STA
12/11/23 15:39
CARDIOLOGY CONSULT Routine
Consulting Provider: Sahil Gr
Was physician already notified: Yes
Abnormal Lab Results
12/11/23
12:49
WBC 4.3 L 10^3/uL
(4.8-10.8)
RBC 4.08 L 10^6/uL
(4.20-5.40)
Hgb 11.5 L g/dL
(12.0-16.0)
Hct 35.0 L %
(37.0-47.0)
MCHC 32.9 L g/dL
(33.0-37.0)
Plt Count 97 L 10^3/uL
(130-400)
MPV 12 H fL
(7.4-10.4)
Absolute Lymphs (auto) 0.6 L 10^3/uL
(1.2-3.4)
Lymphocytes % 14.5 L %
(20.5-51.1)
Monocytes % 12.9 H %
(1.7-9.3)
BUN 32 H mg/dl
(7-17)
Glucose 155 H mg/dl
(70-99)
Total Bilirubin 1.6 H mg/dl
(0.2-1.3)
AST 37 H U/L
(14-36)
Alkaline Phosphatase 282 H U/L
(38-126)
12/11/23 12:49
12/11/23 12:49
Vital Signs
Initial and Last Documented VS:
Initial Vital Signs
Temp Pulse Resp BP Pulse Ox
98.2 F 58 18 156/66 95
12/11/23 12:42 12/11/23 12:42 12/11/23 12:42 12/11/23 12:42 12/11/23 12:42
Last Documented Vital Signs
Temp Pulse Resp BP Pulse Ox
97.8 F 62 17 116/65 97
12/11/23 15:48 12/11/23 16:15 12/11/23 16:15 12/11/23 16:00 12/11/23 16:15
MDM/Problems Addressed
MDM/Problems Addressed:
Case was reviewed with on-call cardiology who feels that the patient should have IV diuresis overnight and further troponin trending as she may require further ischemic evaluation if pain/tightness does not resolve, will admit to the hospitalist
service
Comment
Comment:
EKG independently interpreted by me shows a sinus bradycardia at a rate of [address] changes concerning for ischemia
*Critical Care Note
Total Time (30-74mins, 75-104mins- exclusive of procedures): Not Applicable
ED Attending Note
-
Portions of this chart may have been created with voice recognition software.� Occasional wrong word or��sound alike� substitutions may have occurred due to the inherent limitations of voice recognition software.
Discharge Plan
Departure
Patient Disposition: Admit
Date of Disposition: 12/11/23
Time of Disposition: 14:50
Admit to: Med/Surg
Presentation/result/management discussed w/ accepting MD/DO: Hospitalist
Discharge Problem:
Acute CHF
Prescriptions:
No Action
metoprolol tartrate 25 MG tablet
50 mg PO BID
propafenone 150 mg Tablet
150 mg PO TID
Patient Own Insulin Pump
0 unit SC AC
Patient Comments:
patient states it delivers approximately 100 units per day
Rx Instructions:
patient using insulin apart
losartan 50 mg Tablet
50 mg PO BID Qty: 60 0RF
furosemide 80 mg Tablet
80 mg PO DAILY Qty: 30 0RF
ferrous sulfate [FeroSul] 325 mg (65 mg iron) Tablet
325 mg PO DAILY Qty: 0 0RF
Eliquis 5 mg tablet
5 mg PO BID Qty: 60 0RF
Referrals:
Amina Connelly CRNP [Family Provider] -
Interventions
Interventions:
*Risk Screen - Suicide Last Done: 12/11/23 12:42
*General Assessment Last Done: 12/11/23 12:42
*Neglect/Abuse Screening Last Done: 12/11/23 12:42
ED- Fall Risk Assessment Last Done: 12/11/23 13:33
*ED COVID-19 Vaccine History Last Done: 12/11/23 13:33
ED- Cardiac Assessment Last Done: 12/11/23 13:33
Discharge Date and Time
Print Language: DUTCH
[2023-12-11 14:17] LABS: NT-proBNP 834 pg/ml
[2023-12-11 14:31] LABS: Mean Platelet Volume 12 fL (7.4-10.4); Platelet Count 97 10^3/uL (130-400)
--- NOTE | 2023-12-11 14:47 | W.PN.CARDCBS ---
Addendum entered and electronically signed by Sahil Gr DO 12/11/23 16:04:
I saw and examined the patient.
The Preparer [employer] And Rep[employer]'s note was reviewed and I agree with the note.
Comment:
Plan:
Discussed diuresis with pt
Chest pain may be related to HF.
Cont to monitor for clinical improvement with diuresis
Recent echo and stress reviewed.
Cont to trend troponins.
Discussed with nursing.
Original Note:
Today's Communication / Plan
-
diuresis
trend trops
Impression / Plan
-
Please refer to office note dated 12/11/23
Primary Roofing Machine Tender: Dr. Boles
Assessment:
Presentation with chest pressure, orthopnea, weight gain, LE edema
Suspected acute on chronic HFpEF
Negative trop x1
Sinus bradycardia
Paroxysmal atrial fibrillation s/p ablation 11/2013, 05/2023
Chronic OAC with xarelto
HTN
IDDM
PVCs
IAN on CPAP
Lexiscan nuclear stress test 02/2023: Abnormal perfusion imaging with small mild anteroapical ischemia with reversible mid to apical inferolateral defect which improves with prone imaging most consistent with STA, EF 67%
ECHO 08/06/2023: EF 60 to 65%, mild concentric LVH, moderately dilated right atrium, trace MR, moderate TR, mild pulm HTN with PAP 40 mmHg, no pericardial effusion, pleural effusion noted
Plan:
-Patient presented to office today with complaints of 10 days of chest pressure as well as orthopnea, weight gain, and lower extremity edema. There was concern for acute on chronic CHF.
-proBNP 843. Chest x-ray pending
-She examines volume overloaded. She is taking p.o. Lasix 80 mg daily as an outpatient, and reports compliance. To give 80 mg IV Lasix now in ER
-Discussed with the ER PA. Would admit overnight for IV diuresis.
-Given complaints of chest pressure, will trend troponins. Initial troponin negative x 1. EKG today without acute ischemic changes. Last ischemic evaluation was nuclear stress test 02/2023 with results as above
-Suspect chest pressure could be secondary to volume overload, however she also has risk factors for CAD
-could consider for cath this admission if troponin increases, or if symptoms remain post diuresis
-Recent echo from 07/2023 with results as above. Would not repeat at this time
-Of note, she did recently change CPAP mask in last several days
-continue eliquis for now
-in SR on propafenone and toprol
Progress Note - Roofing Machine Tender
Subjective
Date of Service: December 11, 2023
reports orthopnea, GEORGE, LE edema, weight gain. chest pressure, persistent over the last 10 days
Objective
Labs:
12/11/23 12:49
12/11/23 12:49
Labs
Hgb 11.5 g/dL (12.0-16.0) L 12/11/23 12:49
Hct 35.0 % (37.0-47.0) L 12/11/23 12:49
Plt Count 97 10^3/uL (130-400) L 12/11/23 12:49
Sodium 141 mmol/L (135-145) 12/11/23 12:49
Potassium 3.9 mmol/L (3.5-5.1) 12/11/23 12:49
BUN 32 mg/dl (7-17) H 12/11/23 12:49
Creatinine 1.0 mg/dL (0.6-1.0) 12/11/23 12:49
Glucose 155 mg/dl (70-99) H 12/11/23 12:49
Troponins
12/11/23
12:49
Troponin I < 0.012
Vital Signs and I&O:
Vital Signs
Temp Pulse Resp BP Pulse Ox
98.1 F 58 24 150/60 97
12/11/23 14:00 12/11/23 14:00 12/11/23 14:00 12/11/23 14:00 12/11/23 14:00
Vital Signs
Temp Pulse Resp BP Pulse Ox
98.1 F 58 24 150/60 97
12/11/23 14:00 12/11/23 14:00 12/11/23 14:00 12/11/23 14:00 12/11/23 14:00
Physical Exam
Physical Exam
GEN: No distress, awake, alert, oriented x3
HEENT: supple, anicteric, mmm, eomi
LUNGS: Fine crackles B/L bases, no wheezes
CV: Reg, S1/S2, no murmur
ABD: soft, BS+, NT/ND
EXT: No cyanosis, clubbing. 2+ edema of B/L LE
NEURO: Gross non-focal
SKIN: Warm, pink, dry. No rash
[2023-12-11] MEDS: LASIX 80 MG IV (15:13)
--- NOTE | 2023-12-11 19:44 | HPS.HSE ---
Family Physician
-
Family Physician: Amina Connelly
Chief Complaint
-
Shortness of Breath and Chest Tightness
History of Present Illness
Patient is a 68 y/o female with a PMH of AFib, CHF, IAN, HTN, and IDDM who reports to the ED for chest tightness x 10 days. She saw her power builder developer for a prior schedule appointment who to her to come to the ED. She describes she chest discomfort as
a tightness or squeezing sensation that is intermittent and rates 3-4/10. She denies anything makes the pain worse or better. She admits to shortness of breath that hasn't changed and states she had orthopnea at her cardiology office when they tried
to lie her down. She recently had an increase in her peripheral edema a week ago where she took an extra 20 mg of Lasix and wore compression socks for a few days. She thinks that her edema today is much improved. She denies fever, chills, increased
edema, weight gain, nausea, vomiting, abdominal pain or bloating, dysuria, changes in bowel movements, and palpitations.
Medical History
Past Medical History
Past Medical History: Reports Other
Additional Past Medical History:
Chronic HFpEF
Paroxysmal Atrial Fibrillation
Essential Hypertension
Hyperlipidemia
Diabetes Mellitus, Insulin-Dependent
Pulmonary Hypertension
Obstructive Sleep Apnea
GERD
Past Surgical History: Reports Other
Additional Past Surgical History:
Right Rotator Cuff Repair
Appendectomy
Discectomy
Tubal Ligation
Tonsils and Adenoids
Social History
Tobacco: Non-smoker
Alcohol: None
Family History
Family History: Hypertension
Allergies / Home Medications
Allergies reflects when Allergies were last updated in [facility].
Home Medications with original date entered in [facility]
Allergy/Medication List:
Allergies
Allergy/AdvReac Type Severity Reaction Status Date / Time
adhesive [Adhesive] Allergy Rash/SKIN Verified 12/11/23 12:42
RED
crisaborole [From Eucrisa] Allergy Rash Verified 12/11/23 12:42
sulfamethoxazole Allergy GI upset Verified 12/11/23 12:42
[From Bactrim]
trimethoprim [From Bactrim] Allergy GI upset Verified 12/11/23 12:42
Home Medications
metoprolol tartrate 25 mg tablet 50 mg PO BID Blood pressure 01/10/14
propafenone 150 mg tablet 150 mg PO TID Arrhythmia 07/26/23
Patient Own Insulin Pump 0 unit SC AC Diabetes 08/05/23
apixaban 5 mg tablet (Eliquis) 5 mg PO BID Blood clot prevention/tx #60 tabs 08/11/23
ferrous sulfate 325 mg (65 mg iron) tablet (FeroSul) 325 mg PO DAILY anemia #0 tabs 08/11/23
furosemide 80 mg tablet 80 mg PO DAILY Fluid retention/Swelling #30 tabs 08/11/23
losartan 50 mg tablet 50 mg PO BID Blood pressure #60 tabs 08/11/23
Review of Systems
-
A 12 point ROS was completed and negative except as noted: Yes
Constitutional: Denies Fever or Chills
Respiratory: Reports Trouble Breathing; Denies Cough
Cardiac: Reports Chest Pain (Tightness)
Abdomen/GI: Denies Abdominal Pain, Nausea, Vomiting or Diarrhea
Physical Exam
Vital Signs
Vital Signs
Temp Pulse Resp BP Pulse Ox
97.8 F 66 21 187/76 97
12/11/23 15:48 12/11/23 19:11 12/11/23 19:11 12/11/23 19:11 12/11/23 19:11
Physical Exam
General: Comfortable and Conversant
HEENT: Anicteric and Moist mucous membranes
Respiratory: Clear and Non Labored Respirations
Cardiac: S1/S2 and Regular Rhythm
GI: Soft, Non Tender and Non Distended
Rectal: Deferred by Provider
Musculoskeletal: No Clubbing, No Cyanosis and Other (+2 pitting edema bilateral lower ext)
Skin: Warm and Dry
Neuro: Awake, Alert, Oriented and Nonfocal/grossly intact
Psych: Calm
Laboratory Results
-
12/11/23 12:49
12/11/23 12:49
Laboratory Results
Total Bilirubin 1.6 mg/dl (0.2-1.3) H 12/11/23 12:49
AST 37 U/L (14-36) H 12/11/23 12:49
ALT 35 U/L (0-35) 12/11/23 12:49
Alkaline Phosphatase 282 U/L (38-126) H 12/11/23 12:49
Troponin I < 0.012 ng/ml 12/11/23 12:49
Data Reviewed
-
Diagnostic Radiology: Report Reviewed by me
Lab Data: Labs Reviewed by me
Old Records: Reviewed
Impression/Plan
-
Acute on Chronic HFpEF
-Echo July 2023: Mild concentric LVH with EF 60-65%
-Consult Cardiology
-Continue Lasix 80mg IV Daily
-Monitor I&Os and Daily Weights
Paroxysmal Atrial Fibrillation
-Hx Multiple Ablations and Cardioversions
-Continue Eliquis for anticoagulation
-Continue Rythmol and Metoprolol for rhythm/rate control
Essential Hypertension
-Continue losartan and metoprolol with hold parameters
Diabetes Mellitus, Insulin-Dependent
-Continue patient's own insulin pump
Chronic Anemia
-Continue iron supplement
GERD
-Continue Protonix
Obstructive Sleep Apnea
-Continue CPAP
DVT proph: Eliquis
Code Status: Full Code
[2023-12-11] MEDS: ELIQUIS 5 MG PO (20:54)
[2023-12-11] MEDS: MORPHINE SULFATE 2 MG IV (20:55)
[2023-12-11] MEDS: RYTHMOL 150 MG PO (20:55)
[2023-12-11] MEDS: LOPRESSOR 50 MG PO (20:55)
[2023-12-11] MEDS: COZAAR 50 MG PO (20:59)
--- NOTE | 2023-12-11 21:14 | W.PN.UPDATE ---
Update Note
Progress Note Update
Seen and examined and discussed with physician as in detail I am in agreement with plan and management mentioned by physician social human services assistants, and independent evaluation by me.
Patient has known history of A-fib, presented to the hospital from broke handler office as she was a routine follow-up with her shortness of breath and complaining of 10 to 12-day intermittent mild left-sided chest pain.
No history of evidence of fluid overload and worsening lower extremity edema, given of 80 mg IV Lasix and she has been urinating well overall feels some improvement, I do currently have a mild chest discomfort. Otherwise and any nausea or vomiting
or sweating or fever or chills.
Her at the
Vital signs reviewed
Physical exam:
General: Awake, alert and oriented x3, not in distress and holds appropriate conversation.
HEENT: No active discharge, ecchymosis or bruising, moist lips, tongue and mucous membrane.
Eyes: No discharge or red conjunctiva, no nystagmus, pupils are reactive and equal
Neck:Supple, no JVD no bruit no goiter.
Respiratory: Normal AP contour and diameter, normal chest wall movement, normal respiratory effort, no respiratory distress,
Lungs: Good air entry bilaterally, no wheezing or rhonchi, no rales or crackles
Heart: S1, S2 regular, normal rate, no added sound. Mild to moderate lower extremity
Gastrointestinal: Positive bowel sounds, soft, nontender, no guarding or rigidity or organomegaly
Musculoskeletal: , no chest wall abnormality or tenderness. All joints and extremities have good range of motion, no muscle tenderness or any joint swelling or tenderness.
Extremities: No pitting edema, good peripheral pulses, good range of motion
Skin: Warm and dry, no ulceration, normal color.
Neurological: Awake, alert and oriented x3, no facial speech clear and comprehensive, good muscle tone,
Psychiatric: Normal mood, normal thought and judgment, normal affect,
Workup including labs, imaging, EKG and archive reviewed.
Assessment and plan:
Acute on Chronic HFpEF
-Cardiology consulted and they are already seen by cardiology
-Echo July 2023: Mild concentric LVH with EF 60-65%
-Consult Cardiology
-Continue Lasix 80mg IV Daily per cardiology recommendation.
-Recheck lab
-Daily weight and intake and output
All discussed with the patient and and did
Paroxysmal Atrial Fibrillation
-Hx Multiple Ablations and Cardioversions, according to patient since July, she had a cardioversion she never fully felt back to normal and
-Continue Eliquis for anticoagulation
-Continue Rythmol and Metoprolol for rhythm/rate control
Essential Hypertension
-Continue losartan and metoprolol with hold parameters
Diabetes Mellitus, Insulin-Dependent
-Continue patient's own insulin pump
Chronic Anemia
-Continue iron supplement
Rest of the assessment and management as per recheck
DVT proph: Eliquis
Code Status: Full Code
All discussed with the patient and the hide
Discussed with physician social human services assistants
--- NOTE | 2023-12-11 22:30 | PTCARENOTE ---
Pt transferred from ED. Pt ambulated into the room with assistance. Pt AAOX3, able to make needs known, VSS. Pt came in with own insulin pump. Pt oriented to unit, call vickers within reach. Will continue with current plan.
[2023-12-11 22:55] LABS: Glucose - Point of Care 385 mg/dl (70-99)
[2023-12-11] MEDS: PATIENT'S OWN INSULIN PUMP 15 UNITS SC (23:22)
[2023-12-12 03:25] VITALS: BP 132/48
[2023-12-12] MEDS: MORPHINE SULFATE 2 MG IV (04:07)
[2023-12-12] MEDS: LASIX 80 MG IV (05:35)
[2023-12-12 06:00] VITALS: BMI 31.4
[2023-12-12 07:13] LABS: Glucose - Point of Care 114 mg/dl (70-99)
[2023-12-12 07:15] VITALS: BP 137/52
--- NOTE | 2023-12-12 07:15 | PN.DE.MGMTRT ---
Insulin Management
- -
12/12/2023 Diabetes Management Consult
Patient admitted 12/10 with chest pain from cardiology office, acute on chronic CHF, paroxysmal Afib. PMH diabetes, aFib/flutter, GERD, HTN, chf. Prior to admission patient using an tslim x2 insulin pump with control IQ and DexCom G7. A1C 8.1%, CR
1, eGFR >60.
Glucose last evening 385. Patient did take a correction, fasting glucose this AM 114.
Patient is awake alert and oriented able to discuss diabetes management and insulin pump. Sees Dr. Mann, endocrine, at [facility]. Current pump settings:
Basal CHO ratio Sensitivity Target
12am 1.85 10 30 110
3am 1.75 10 30 110
5am 1.35 5 30 110
6am 1.65 6 30 110
6:30am 1.75 5.5 30 110
8:30am 1.4 5.5 30 110
12pm 1.3 5 30 110
6pm 1.3 4.5 30 110
8pm 1.5 4.5 30 110
10pm 1.4 4 30 110
24 hour basal total 35.825
She is currently using Fiasp insulin with [employer] XC infusion set. She has the insulin pump worksheet at the bedside and is entering doses carbs, etc.
Will make no change to regimen
Discussed with nurse.
Diabetes History
- -
Type of Diabetes: 1
Pre-Admission Diabetes Regimen
12/11/23
12:49
Creatinine 1.0
Insulin Pump Settings
IP Diabetes Regimen
12/11/23 12/11/23 12/12/23
12:49 22:54 07:12
Glucose 155 H
POC Glucose 385 H 114 H
Meal type: Lunch
Patient Education
[2023-12-12] MEDS: COZAAR 50 MG PO ×2 (07:51→19:46)
[2023-12-12] MEDS: LOPRESSOR PO (07:52)
[2023-12-12] MEDS: RYTHMOL 150 MG PO ×2 (07:52→19:47)
[2023-12-12] MEDS: PROTONIX 40 MG PO ×2 (07:53→19:47)
[2023-12-12] MEDS: PATIENT'S OWN INSULIN PUMP SC (07:54)
[2023-12-12] MEDS: PATIENT'S OWN INSULIN PUMP 7.65 UNITS SC (08:00)
--- NOTE | 2023-12-12 08:01 | W.PN.HOSP.TC ---
Today's Communication/Plan
-
see bold
Assessment / Plan
Assessment / Plan
#Acute heart failure with preserved ejection fraction
Echo July 2023: Mild concentric LVH with EF 60-65%
Cardiology following, continue IV Lasix, trend creatinine, trend daily weights
Compression to lower extremities
#Chest pressure
Trend troponins, trend EKG
For cardiac catheterization tomorrow
#Paroxysmal atrial fibrillation
History of multiple ablations and cardioversions
Hold Eliquis for cardiac catheterization tomorrow
Continue metoprolol and propafenone for rate control
Essential Hypertension
-Continue losartan and metoprolol with hold parameters
Musculoskeletal back pain
� Tylenol prn
Diabetes Mellitus, Insulin-Dependent
-Continue patient's own insulin pump
Chronic Anemia
-Continue iron supplement
GERD
-Continue Protonix
Obstructive Sleep Apnea
-Continue CPAP
Obesity due to excess calories
� Affects all aspects of care
DVT proph: SCDs
Code Status: Full Code
Total time spent to see the patient on the floor, examine the patient, review data and lab results, discuss treatment plan with patient, nursing staff around 50 minutes.
Physical Exam
General: Obese, no acute distress
HEENT: Normocephalic, Atraumatic, EOMI, MMM
Respiratory: Clear to Auscultation bilaterally
Cardiac: Normal S1/S2, Regular Rate and Rhythm
GI: Soft, Nontender, Nondistended, Normal Bowel Sounds
Extremities: No Clubbing, Cyanosis, or Edema
Neuro: Nonfocal/Grossly Intact
Psych: Calm, Cooperative
Derm: No Visible lesions
Anticipated Discharge: > 48 hours
Subjective/Interval History
-
Date of Service: December 12, 2023
Patient reports having shortness of breath for the past 3 months. She also reports intermittent chest pressure. No fever, no vomiting.
Objective Data
-
Labs:
Laboratory Results
12/12/23
06:00
WBC Pending
Hgb Pending
Hct Pending
Plt Count Pending
Sodium Pending
Potassium Pending
Chloride Pending
Carbon Dioxide Pending
BUN Pending
Creatinine Pending
Glucose Pending
Calcium Pending
Total Bilirubin Pending
AST Pending
ALT Pending
Alkaline Phosphatase Pending
Vital Signs:
Vital Signs
Temp Pulse Resp BP Pulse Ox
98.0 F 55 17 137/52 94
12/12/23 07:15 12/12/23 07:52 12/12/23 07:15 12/12/23 07:51 12/12/23 07:15
I&O
12/11/23 12/12/23 12/13/23
06:59 06:59 06:59
Intake Total 420 / 420
Balance 420 / 420
--- NOTE | 2023-12-12 08:41 | W.PN.CARDCBS ---
Addendum entered and electronically signed by Zay Boles MD 12/12/23 12:27:
I saw and examined the patient.
The Mri Manager's note was reviewed and I agree with the note.
Comment:
GEN: No distress, awake, Ox3
HEENT: supple, anicteric, mmm
LUNGS: CTA, no wheezes/rales
CV: Reg, S1/S2, 1/6 syst LSB, no gallop
ABD: soft, BS+, NT/ND
EXT: trace edema
NEURO: Gross non-focal
SKIN: No rash
Plan:
She is feeling a little better. Still with chest pains and shortness of breath.
Remains in sinus. Cont lasix. Cont Metoprolol/Propafenone.
plan is RHC/LHC in AM
Hold Eliquis
Original Note:
Today's Communication / Plan
-
Continue diuresis
Replete K
Hold Eliquis in preparation for cath in AM
NPO after midnight
Impression / Plan
-
Please refer to office note dated 12/11/23 as official consult
Primary Stock Taker: Dr. Boles
Impression:
Presentation with chest pressure, orthopnea, weight gain, LE edema
Suspected acute on chronic HFpEF
Negative trop x1
Sinus bradycardia
Paroxysmal atrial fibrillation s/p ablation 11/2013, 05/2023
Chronic OAC with xarelto
HTN
IDDM
PVCs
IAN on CPAP
Lexiscan nuclear stress test 02/2023: Abnormal perfusion imaging with small mild anteroapical ischemia with reversible mid to apical inferolateral defect which improves with prone imaging most consistent with STA, EF 67%
ECHO 08/06/2023: EF 60 to 65%, mild concentric LVH, moderately dilated right atrium, trace MR, moderate TR, mild pulm HTN with PAP 40 mmHg, no pericardial effusion, pleural effusion noted
Plan:
-Patient seen in cardiology office 12/10 and complained of 10 days of chest pressure, orthopnea, and weight gain. Sent to for admission.
-Diuresing with IV lasix 80mg daily. Weight down 1lb overnight, down to 212lbs. CXR 12/10 with very small R pleural effusion.
-Creat stable at 1.0. Will continue diuresis for now.
-Chest pressure noted x 10 days. Troponin negative x 1. Will repeat.
-Lexiscan stress test 02/2023 with results as above. Given persistent chest pain and SOB, plan will be for R&LHC in AM. NPO after midnight.
-She notes she did have some recurrent pain overnight. Did not improve significantly with morphine. If she has recurrent pain, may try SL nitro to see if this helps.
-Eliquis held in preparation for cath. Resume post procedure.
-Recent echo from 07/2023 with results as above. No need to repeat at this time.
-Of note, she did recently change CPAP mask in last several days
-Remains in SR on review of telemetry. Continue Toprol and propafenone. HR stable.
-Further recommendations to be made based on results of cath.
-K 3.5, will replete with ongoing diuresis.
Progress Note - Stock Taker
Subjective
Date of Service: December 12, 2023
Still with intermittent chest pressure overnight. May be somewhat improved this AM.
Objective
Labs:
Labs
Hgb 11.5 g/dL (12.0-16.0) L 12/11/23 12:49
Hct 35.0 % (37.0-47.0) L 12/11/23 12:49
Plt Count 97 10^3/uL (130-400) L 12/11/23 12:49
Sodium 141 mmol/L (135-145) 12/11/23 12:49
Potassium 3.9 mmol/L (3.5-5.1) 12/11/23 12:49
BUN 32 mg/dl (7-17) H 12/11/23 12:49
Creatinine 1.0 mg/dL (0.6-1.0) 12/11/23 12:49
Glucose 155 mg/dl (70-99) H 12/11/23 12:49
Troponins
12/11/23
12:49
Troponin I < 0.012
Vital Signs and I&O:
Vital Signs
Temp Pulse Resp BP Pulse Ox
98.0 F 55 17 137/52 94
12/12/23 07:15 12/12/23 07:52 12/12/23 07:15 12/12/23 07:51 12/12/23 07:15
Vital Signs
Temp Pulse Resp BP Pulse Ox
98.0 F 55 17 137/52 94
12/12/23 07:15 12/12/23 07:52 12/12/23 07:15 12/12/23 07:51 12/12/23 07:15
Intake & Output
12/10/23 12/11/23 12/12/23 12/13/23
06:59 06:59 06:59 06:59
Intake Total 420 / 420
Balance 420 / 420
Physical Exam
Physical Exam
GEN: No distress, awake, alert, oriented x3
HEENT: supple, anicteric, mmm, eomi
LUNGS: Fine crackles B/L bases, no wheezes
CV: Reg, S1/S2, no murmur
EXT: No cyanosis, clubbing. 1+ edema of B/L LE
NEURO: Gross non-focal
SKIN: Warm, pink, dry. No rash
[2023-12-12 08:59] LABS: Hematocrit 34.7 % (37.0-47.0); Hemoglobin 11.2 g/dL (12.0-16.0); Mean Corp Hgb Conc. 32.3 g/dL (33.0-37.0); Mean Corpuscular Hgb 27.1 pg (27.0-31.0); Platelet Count 108 10^3/uL (130-400); Red Blood Cell Count 4.13 10^6/uL (4.20-5.40); Red Cell Dist. Width 14.3 % (11.5-14.5); White Blood Cell Count 3.6 10^3/uL (4.8-10.8)
[2023-12-12 09:09] LABS: ALT (SGPT) 30 U/L (0-35); AST (SGOT) 32 U/L (14-36); Albumin 4.1 g/dl (3.5-5.0); Alkaline Phosphatase 229 U/L (38-126); Blood Urea Nitrogen 32 mg/dl (7-17); Calcium 9.2 mg/dl (8.4-10.2); Carbon Dioxide 28 mmol/L (22-30); Chloride 101 mmol/L (98-107); Direct Bilirubin 0.5 mg/dl (0.0-0.4); Estimated Creatinine Clearance 67 ml/min; Glucose 96 mg/dl (70-99); Magnesium 1.9 mg/dl (1.6-2.3); Potassium 3.5 mmol/L (3.5-5.1); Sodium 139 mmol/L (135-145); Total Bilirubin 1.5 mg/dl (0.2-1.3); Total Protein 7.3 g/dl (6.3-8.2); eGFR > 60.00
[2023-12-12] MEDS: KCL 40 MEQ PO (10:24)
[2023-12-12] MEDS: NITROSTAT (SUBLINGUAL) 0.4 MG SL ×3 (10:26→16:01)
[2023-12-12 10:49] LABS: Glycohemoglobin (HgbA1c) 8.1 % (4.0-5.6)
[2023-12-12 11:08] LABS: Glucose - Point of Care 166 mg/dl (70-99)
[2023-12-12 11:13] LABS: Troponin I < 0.012 ng/ml
[2023-12-12 11:21] VITALS: BP 114/41
--- NOTE | 2023-12-12 12:27 | CM ---
Addendum entered by Marily Lanza 12/12/23 12:36:
IMM to be signed at discharge
Original Note:
IA obtained on patient by keycase assembler.
Pt dx: CHF
PMH: IDDM (inulin pump), HTN, AFIB, GERD, IAN with CPAP
Came to ER from state inspector appt with chest pressure.
Patient lives with spouse in a 2 story home with 14 steps.
PLOF: Independent, drives.
Discussed role of keycase assembler. Options given for visiting nurse.
She states she will think about VN, but also outpatient cardiac rehab as she was recommended this last hospitalization.
Discharge to home when stable. Revisit for visiting nurse or outpatient cardiac rehab decision.
PCP: Amina Connelly
Pharmacy: [facility]
PLAN: Cardiac Cath 12/12 - discharge to home when stable.
Revisit for decision of visiting nurse or outpatient cardiac rehab.
[2023-12-12] MEDS: PATIENT'S OWN INSULIN PUMP 7.44 UNITS SC (14:25)
[2023-12-12 15:01] VITALS: BP 127/48
[2023-12-12] MEDS: LASIX 40 MG IV (15:08)
[2023-12-12 16:39] LABS: Glucose - Point of Care 208 mg/dl (70-99)
[2023-12-12] MEDS: PATIENT'S OWN INSULIN PUMP 6.39 UNITS SC (18:13)
[2023-12-12 19:10] VITALS: BP 156/72
[2023-12-12] MEDS: LOPRESSOR 50 MG PO (19:47)
[2023-12-12 21:06] LABS: Glucose - Point of Care 209 mg/dl (70-99)
[2023-12-12] MEDS: PATIENT'S OWN INSULIN PUMP 5.56 UNITS SC (21:25)
[2023-12-12 23:09] VITALS: BP 167/66
[2023-12-13] VITALS (11 sets, daily range): BP systolic 129–163; BP diastolic 49–71; BMI 31.2
[2023-12-13 05:18] LABS: Glucose - Point of Care 162 mg/dl (70-99)
[2023-12-13 06:13] LABS: Glucose - Point of Care 149 mg/dl (70-99)
--- NOTE | 2023-12-13 07:36 | PN.DE.MGMTRT ---
Insulin Management
- -
12/13/2023: Diabetes Management F/U:
Patient admitted 12/10 with chest pain from cardiology office, acute on chronic CHF, paroxysmal Afib. PMH diabetes, aFib/flutter, GERD, HTN, chf.
Prior to admission patient using an tslim x2 insulin pump with control IQ and DexCom G7. Sees Dr. Mann, endocrine, at [facility].
A1C 8.1%, CR 1, eGFR >60. Glucose on evening of admission trended up to 385, Patient states was given a regular [place] and she did take a correction.
Patient is awake, A/O x3, resting up in bed, at bedside, pt offers no complaints, able to discuss diabetes management and insulin pump.
Current pump settings:
Basal CHO ratio Sensitivity Target
12am 1.85 10 30 110
3am 1.75 10 30 110
5am 1.35 5 30 110
6am 1.65 6 30 110
6:30am 1.75 5.5 30 110
8:30am 1.4 5.5 30 110
12pm 1.3 5 30 110
6pm 1.3 4.5 30 110
8pm 1.5 4.5 30 110
10pm 1.4 4 30 110
24 hour basal total 35.825
12/11 glucose range 114 to 209, using Fiasp insulin with [employer] XC infusion set. Will make no change to regimen.
Encouraged pt to continue entering bolus doses and carbs on Insulin pump worksheet at the bedside
Pt stable for d/c home from diabetes stand point
Diabetes History
- -
Type of Diabetes: 1
Pre-Admission Diabetes Regimen
12/12/23
08:07
Creatinine 1.0
Lab Results
Hemoglobin A1c 8.1 % (4.0-5.6) H 12/12/23 08:07
Insulin Pump Settings
IP Diabetes Regimen
12/12/23 12/12/23 12/12/23
08:07 11:07 16:38
Glucose 96
POC Glucose 166 H 208 H
12/12/23 12/13/23 12/13/23
21:05 05:16 06:11
Glucose
POC Glucose 209 H 162 H 149 H
Patient Education
[2023-12-13] MEDS: COZAAR 50 MG PO ×2 (08:05→20:26)
[2023-12-13] MEDS: RYTHMOL 150 MG PO ×2 (08:05→20:26)
[2023-12-13] MEDS: PROTONIX 40 MG PO ×2 (08:05→20:27)
[2023-12-13] MEDS: LOPRESSOR 50 MG PO ×2 (08:09→20:27)
[2023-12-13] MEDS: LASIX 80 MG IV ×2 (08:21→17:18)
[2023-12-13 09:46] LABS: Blood Urea Nitrogen 32 mg/dl (7-17); Calcium 9.3 mg/dl (8.4-10.2); Carbon Dioxide 27 mmol/L (22-30); Chloride 102 mmol/L (98-107); Estimated Creatinine Clearance 67 ml/min; Glucose 150 mg/dl (70-99); Sodium 137 mmol/L (135-145); eGFR > 60.00
[2023-12-13 10:35] LABS: Glucose - Point of Care 147 mg/dl (70-99)
--- NOTE | 2023-12-13 13:13 | CM ---
Addendum entered by Ewelina Lira 12/13/23 16:14:
Coupon placed in patients chart, patient aware.
Addendum entered by Ewelina Lira 12/13/23 15:56:
Consult for cost of farxiga/jardiance 10mg, per ambulatory orders, Farxiga not covered, Jardiance $128.39 for 30 day supply, TT sent to Physician with update.
Original Note:
Patient s/p cardiac catheterization today.
Plan home with possible VN needs.
--- NOTE | 2023-12-13 14:17 | W.PN.HOSP.TC ---
Today's Communication/Plan
-
see bold
Assessment / Plan
Assessment / Plan
#Acute heart failure with preserved ejection fraction
Echo July 2023: Mild concentric LVH with EF 60-65%
Cardiology following, continue IV Lasix, trend creatinine, trend daily weights
Compression to lower extremities
For cardiac catheterization today
#Chest pressure
Trend troponins, trend EKG
For cardiac catheterization today
#Paroxysmal atrial fibrillation
History of multiple ablations and cardioversions
Hold Eliquis for cardiac catheterization
Continue metoprolol and propafenone for rate control
Essential Hypertension
-Continue losartan and metoprolol with hold parameters
Musculoskeletal back pain
� Tylenol prn
Diabetes Mellitus, Insulin-Dependent
-HgbA1C 8.1
-Continue patient's own insulin pump
Chronic Anemia
-Continue iron supplement
GERD
-Continue Protonix
Obstructive Sleep Apnea
-Continue CPAP
Obesity due to excess calories
� Affects all aspects of care
DVT proph: SCDs
Code Status: Full Code
Total time spent to see the patient on the floor, examine the patient, review data and lab results, discuss treatment plan with patient, nursing staff around 37 minutes.
Physical Exam
General: Obese, no acute distress
HEENT: Normocephalic, Atraumatic, EOMI, MMM
Respiratory: Clear to Auscultation bilaterally
Cardiac: Normal S1/S2, Regular Rate and Rhythm
GI: Soft, Nontender, Nondistended, Normal Bowel Sounds
Extremities: No Clubbing, Cyanosis, or Edema
Neuro: Nonfocal/Grossly Intact
Psych: Calm, Cooperative
Derm: No Visible lesions
Anticipated Discharge: 24 - 48 hours
Subjective/Interval History
-
Date of Service: December 12, 2023
Breathing mildly improved. +chest pressure. No fever, no vomiting.
Objective Data
-
Labs:
Laboratory Results
12/12/23
08:07
WBC 3.6 L
Hgb 11.2 L
Hct 34.7 L
Plt Count 108 L
Sodium 139
Potassium 3.5
Chloride 101
Carbon Dioxide 28
BUN 32 H
Creatinine 1.0
Glucose 96
Calcium 9.2
Total Bilirubin 1.5 H
AST 32
ALT 30
Alkaline Phosphatase 229 H
Vital Signs:
Vital Signs
Temp Pulse Resp BP Pulse Ox
97.9 F 56 17 114/41 97
12/12/23 11:21 12/12/23 11:21 12/12/23 11:21 12/12/23 11:21 12/12/23 11:21
I&O
12/11/23 12/12/23 12/13/23
06:59 06:59 06:59
Intake Total 420 / 420
Balance 420 / 420
--- NOTE | 2023-12-13 14:23 | ITS.CL.CATH ---
Chief Deputy Clerk/Bailiff - Catheterization
Cardiac Catheterization
Procedure Report:
RIGHT AND LEFT HEART STUDY
Date of Procedure: December 13, 2023
Referring: Dr. Beto Boles
PROCEDURES:
1. Right heart catheterization
2. Left heart catheterization with coronary and single-plane left ventriculography
INDICATION: Chest pain and shortness of breath with minimal exertion
ACCESS: Right radial artery, 6 Armenian sheath (NOTE severe pain and spasm. We were only able to advance the sheath 2 to 3 cm into the artery with severe discomfort. 5 Armenian catheters were utilized to engage the coronary arteries) ultrasound
guidance was utilized to obtain access in the right brachial vein and a 5 Armenian sheath was inserted
HEMODYNAMICS : mmHg
RA (m) : 32 with V waves to 45 mmHg
RV (s/d) : 57/13, 31
PA (s/d, m) : 55/27, 39
PCWP (m) : 30 with V waves to 51 mmHg
AO (s/d, m) : 147/58, 85
LV (s/d) : 144/13
LVEDP : 32
Estimated Yousuf Cardiac Output: 4.1 L / min and Cardiac Index: 1.9 L/ min / m-2
Systemic vascular resistance: 12.9 Wood units or 1034 sxejq-mgm-oh(-5)
Pulmonary vascular resistance: 2.2 Wood units or 176 efxcl-cxf-pi(-5)
CORONARY FINDINGS :
Dominance: Right
LEFT MAIN: Normal
LEFT ANTERIOR DESCENDING: The LAD arises normally from the left main and runs in the anterior interventricular groove the mid LAD beyond small second diagonal branch has tandem 50 and 60% stenosis and the LAD tapers to a very small caliber vessel as
it approaches the apex.
CIRCUMFLEX: The circumflex is a medium caliber nondominant vessel. OM1 arises proximally from the circumflex and has a 30% proximal stenosis. OM 2 has a 30-40% proximal stenosis. The circumflex terminates in a small OM 3 that has a 50% proximal
stenosis.
RIGHT CORONARY ARTERY: The right coronary artery is a medium caliber dominant vessel with a 30% mid and 40% distal stenosis
VENTRICULOGRAPHY: Left ventriculography is performed in an RAMIREZ projection. The digital single-plane left ventricular ejection fraction is estimated at at 60%. No regional wall motion abnormalities
RADIATION SUMMARY: Fluoro Time (min): 6.8, Dose (mGy): 322.8, DAP (Gy.cm2) : 26.3
CONCLUSIONS
1. Elevated right and left ventricular filling pressures.
2. Preserved left ventricular systolic function
3. Mild noncritical coronary artery disease as described above. No focal obstructive stenosis accounting for resting symptoms.
RECOMMENDATIONS
1. Repeat echocardiogram to assess severity of tricuspid regurgitation and mitral regurgitation
2. Continue IV diuresis: Furosemide 80 mg IV bid
3. Will check the cost of empagliflozin
Copy to: Dr. Beto Boles
[2023-12-13 15:18] LABS: Glucose - Point of Care 119 mg/dl (70-99)
[2023-12-13] MEDS: CRESTOR 5 MG PO (17:37)
--- NOTE | 2023-12-13 17:54 | PTCARENOTE ---
pt was recived from cardiac cath lad - awake, alert and oriented x 4. pt denied any discomfort or pain. pt had rt radial armband and rt brachial pressure dressing which was clean, dry and intact. no signs of active bleeding. pt's armband was
deflated at assigned time which had active bleeding released air was returned and bleeding stop. echocardiogram was done at bedside. 3mL's was released from the armband with no active bleeding x 3 and 1mL. brachial dressing remained clean, dry and
intact. pt reminded to not use the affected arm and to call for assistance. patient continues to deny any discomfort or pain and is content that she will be treated with medications. patient's bed is in the lowest position possible with call vickers
within reach
[2023-12-13] MEDS: TYLENOL 1000 MG PO (20:23)
[2023-12-13] MEDS: ELIQUIS 5 MG PO (20:26)
[2023-12-13 21:26] LABS: Glucose - Point of Care 246 mg/dl (70-99)
[2023-12-14] VITALS (7 sets, daily range): BP systolic 116–147; BP diastolic 40–77; BMI 30.7
[2023-12-14 00:10] LABS: Glucose - Point of Care 242 mg/dl (70-99)
[2023-12-14 07:32] LABS: Glucose - Point of Care 168 mg/dl (70-99)
[2023-12-14] MEDS: TYLENOL 1000 MG PO (07:59)
[2023-12-14] MEDS: RYTHMOL 150 MG PO ×2 (08:00→20:30)
[2023-12-14] MEDS: PROTONIX 40 MG PO ×2 (08:00→20:29)
[2023-12-14] MEDS: LOPRESSOR 50 MG PO (08:00)
[2023-12-14] MEDS: ELIQUIS 5 MG PO ×2 (08:00→20:30)
[2023-12-14] MEDS: COZAAR 50 MG PO ×2 (08:02→20:29)
[2023-12-14] MEDS: PATIENT'S OWN INSULIN PUMP 11.3 UNITS SC (08:11)
[2023-12-14] MEDS: LASIX 80 MG IV ×2 (08:28→17:06)
--- NOTE | 2023-12-14 08:40 | W.PN.HOSP.TC ---
Today's Communication/Plan
-
see bold
Assessment / Plan
Assessment / Plan
#Acute heart failure with preserved ejection fraction
Echo July 2023: Mild concentric LVH with EF 60-65%
12/13/2023 cardiac catheterization showing elevated filling pressures
Cardiology following, continue Lasix 80 mg IV twice daily, trend creatinine, trend daily weights
Compression to lower extremities
#Chest pressure
Unclear etiology, resolved
12/13/2023 cardiac catheterization showing mild noncritical coronary artery disease
#Paroxysmal atrial fibrillation
History of multiple ablations and cardioversions
Eliquis resume
Continue metoprolol and propafenone for rate control
Essential Hypertension
-Continue losartan and metoprolol with hold parameters
Musculoskeletal back pain
� Tylenol prn
Diabetes Mellitus, Insulin-Dependent
-HgbA1C 8.1
-Continue patient's own insulin pump
Chronic Anemia
-Continue iron supplement
GERD
-Continue Protonix
Obstructive Sleep Apnea
-Continue CPAP
Obesity due to excess calories
� Affects all aspects of care
DVT proph: SCDs
Code Status: Full Code
Total time spent to see the patient on the floor, examine the patient, review data and lab results, discuss treatment plan with patient, nursing staff around 38 minutes.
Physical Exam
General: Obese, no acute distress
HEENT: Normocephalic, Atraumatic, EOMI, MMM
Respiratory: Clear to Auscultation bilaterally
Cardiac: Normal S1/S2, Regular Rate and Rhythm
GI: Soft, Nontender, Nondistended, Normal Bowel Sounds
Extremities: No Clubbing, Cyanosis
3+ bilateral lower extremity edema, improved from admission
Neuro: Nonfocal/Grossly Intact
Psych: Calm, Cooperative
Derm: No Visible lesions
Anticipated Discharge: 24 - 48 hours
Subjective/Interval History
-
Date of Service: December 14, 2023
Patient's breathing continues to improve. Chest pressure resolved. No fever, no vomiting.
Objective Data
-
Labs:
Laboratory Results
12/14/23
06:00
Sodium Pending
Potassium Pending
Chloride Pending
Carbon Dioxide Pending
BUN Pending
Creatinine Pending
Glucose Pending
Calcium Pending
Vital Signs:
Vital Signs
Temp Pulse Resp BP Pulse Ox
98.2 F 68 19 124/51 96
12/14/23 08:07 12/14/23 08:28 12/14/23 08:07 12/14/23 08:28 12/14/23 08:07
I&O
12/13/23 12/14/23 12/15/23
06:59 06:59 06:59
Intake Total 700 / 700 725 / 725
Output Total 1000 / 1000
Balance 700 / 700 -275 / -275
--- NOTE | 2023-12-14 08:43 | W.PN.CARDCBS ---
Addendum entered and electronically signed by Clifton Rodgers MD 12/14/23 11:44:
I saw and examined the patient.
The LOFT RIGGER or PA's note was reviewed and I agree with the note.
Comment: General: Well developed, well nourished in NAD.
Neck: Supple, no JVD, HJR, carotids +2 B/L, no bruits bilaterally.
Heart: Non displaced PMI, RRR, no murmurs, No S3, S4, no rubs.
Lungs:Scattered rhonchi
Extremities: No clubbing, cyanosis or edema bilaterally.
Neuro: Grossly nonfocal, awake, alert and oriented x3.
She has had excellent diuresis. Await blood work results. Consider change to oral Lasix on 12/14. Echocardiogram on 12/13/2023 was essentially unchanged except for some RV dilatation and hypokinesis. Discussed with primary service
Original Note:
Today's Communication / Plan
-
Continue IV lasix at higher dose 80mg BID
Refused AM labs. Discussed importance of following renal function.
Follow daily weights.
Await echo results
Impression / Plan
-
Please refer to office note dated 12/11/23 as official consult
Primary Entry Level Mechanical Engineer: Dr. Boles
Impression:
Presentation with chest pressure, orthopnea, weight gain, LE edema
Suspected acute on chronic HFpEF
Negative trop x1
Sinus bradycardia
Paroxysmal atrial fibrillation s/p ablation 11/2013, 05/2023
Chronic OAC with xarelto
HTN
IDDM
PVCs
IAN on CPAP
Lexiscan nuclear stress test 02/2023: Abnormal perfusion imaging with small mild anteroapical ischemia with reversible mid to apical inferolateral defect which improves with prone imaging most consistent with STA, EF 67%
ECHO 08/06/2023: EF 60 to 65%, mild concentric LVH, moderately dilated right atrium, trace MR, moderate TR, mild pulm HTN with PAP 40 mmHg, no pericardial effusion, pleural effusion noted
Echo 12/13/2023: Study completed, report pending.
R&LHC 12/13/2023: Mild noncritical CAD. No focal obstructive stenosis. Preserved LV systolic function. Elevated right and left ventricular filling pressures.
Plan:
-Patient seen in cardiology office 12/10 and complained of 10 days of chest pressure, orthopnea, and weight gain. Sent to for admission.
-Underwent left and right heart cath 12/12 given persistent SOB with new chest pressure. Cath revealed mild noncritical CAD with elevated right and left ventricular filling pressures.
-Diuresing with IV lasix, dose increased to 80mg BID following cath. Weight down to 208lbs, down 5lbs this admission.
-Patient refused AM labs. Discussed importance of following renal function, especially w/ increased dose of lasix. She reports she will allow bloodwork tomorrow.
-Recent echo from 07/2023 with results as above. Repeat echo completed 12/12. Report pending.
-Remains in SR on review of telemetry. Continue Toprol and propafenone. HR stable.
-Eliquis restarted 12/12 post cath.
-New to crestor 5mg daily this admission.
Progress Note - Entry Level Mechanical Engineer
Subjective
Date of Service: December 14, 2023
Feeling somewhat better on higher dose lasix.
Objective
Labs:
12/12/23 08:07
Labs
Hgb 11.2 g/dL (12.0-16.0) L 12/12/23 08:07
Hct 34.7 % (37.0-47.0) L 12/12/23 08:07
Plt Count 108 10^3/uL (130-400) L 12/12/23 08:07
Sodium 137 mmol/L (135-145) 12/13/23 07:38
Potassium 4.0 mmol/L (3.5-5.1) 12/13/23 07:38
BUN 32 mg/dl (7-17) H 12/13/23 07:38
Creatinine 1.0 mg/dL (0.6-1.0) 12/13/23 07:38
Glucose 150 mg/dl (70-99) H 12/13/23 07:38
Troponins
12/11/23 12/12/23
12:49 10:23
Troponin I < 0.012 < 0.012
Vital Signs and I&O:
Vital Signs
Temp Pulse Resp BP Pulse Ox
98.2 F 68 19 124/51 96
12/14/23 08:07 12/14/23 08:28 12/14/23 08:07 12/14/23 08:28 12/14/23 08:07
Vital Signs
Temp Pulse Resp BP Pulse Ox
98.2 F 68 19 124/51 96
12/14/23 08:07 12/14/23 08:28 12/14/23 08:07 12/14/23 08:28 12/14/23 08:07
Intake & Output
12/12/23 12/13/23 12/14/23 12/15/23
06:59 06:59 06:59 06:59
Intake Total 420 / 420 700 / 700 725 / 725
Output Total 1000 / 1000
Balance 420 / 420 700 / 700 -275 / -275
Physical Exam
Physical Exam
GEN: No distress, awake, alert, oriented x3
HEENT: supple, anicteric, mmm, eomi
LUNGS: Fine crackles B/L bases, no wheezes
CV: Reg, S1/S2, no murmur
EXT: No cyanosis, clubbing. trace edema of B/L LE
NEURO: Gross non-focal
SKIN: Warm, pink, dry. No rash
[2023-12-14 11:23] LABS: Glucose - Point of Care 177 mg/dl (70-99)
[2023-12-14] MEDS: PATIENT'S OWN INSULIN PUMP 9 UNITS SC (13:02)
[2023-12-14 16:31] LABS: Glucose - Point of Care 182 mg/dl (70-99)
[2023-12-14] MEDS: PATIENT'S OWN INSULIN PUMP 6.8 UNITS SC (17:46)
[2023-12-14] MEDS: CRESTOR 5 MG PO (17:47)
--- NOTE | 2023-12-14 20:00 | PTCARENOTE ---
Pt w/ a spontaneous bloody nose - bloody tissues found at bedside. Resolved on own. Small amount of bleeding. FREIGHT CALLER made aware
[2023-12-14] MEDS: LOPRESSOR PO (20:29)
[2023-12-14 21:07] LABS: Glucose - Point of Care 237 mg/dl (70-99)
[2023-12-15] VITALS (7 sets, daily range): BP systolic 113–160; BP diastolic 38–60; BMI 30.8
--- NOTE | 2023-12-15 04:30 | PTCARENOTE ---
Pt c/o chest pressure /10. This is what she came in with. VSS T 97.7 HR 63 RR 20 BP 160/59 Pox 96% on RA. Nitro x 3 given. Pt still w/ 06/05 pressure. No other complaints. EKG done and labs drawn.
[2023-12-15] MEDS: NITROSTAT (SUBLINGUAL) 0.4 MG SL ×3 (04:31→04:45)
[2023-12-15] MEDS: TYLENOL 1000 MG PO (05:28)
[2023-12-15 05:43] LABS: Troponin I < 0.012 ng/ml
[2023-12-15 05:46] LABS: Blood Urea Nitrogen 38 mg/dl (7-17); Calcium 9.2 mg/dl (8.4-10.2); Carbon Dioxide 29 mmol/L (22-30); Chloride 98 mmol/L (98-107); Estimated Creatinine Clearance 51 ml/min; Glucose 170 mg/dl (70-99); Sodium 135 mmol/L (135-145); eGFR 45.07
[2023-12-15 05:49] LABS: % Basophils 0.8 % (0-2); % Eosinophils 4.1 % (0-6); % Immature Granulocytes 0.3 % (0-0.5); % Lymphocytes 17.6 % (20.5-51.1); % Monocytes 16.8 % (1.7-9.3); % Neutrophils 60.4 % (42.2-75.2); Absolute Eosinophils 0.2 10^3/uL (0-0.7); Absolute Lymphocytes 0.6 10^3/uL (1.2-3.4); Absolute Monocytes 0.6 10^3/uL (0.1-0.6); Absolute Neutrophils 2.2 10^3/uL (1.4-6.5); Hematocrit 31.4 % (37.0-47.0); Hemoglobin 10.4 g/dL (12.0-16.0); Mean Corp Hgb Conc. 33.1 g/dL (33.0-37.0); Mean Corpuscular Hgb 27.1 pg (27.0-31.0); Mean Corpuscular Volume 81.8 fL (81.0-99.0); Mean Platelet Volume 12.3 fL (7.4-10.4); Nucleated Red Blood Cells % 0 %; Platelet Count 119 10^3/uL (130-400); Red Blood Cell Count 3.84 10^6/uL (4.20-5.40); Red Cell Dist. Width 14.3 % (11.5-14.5); White Blood Cell Count 3.6 10^3/uL (4.8-10.8)
[2023-12-15 07:04] LABS: Glucose - Point of Care 186 mg/dl (70-99)
--- NOTE | 2023-12-15 08:25 | W.PN.HOSP.TC ---
Today's Communication/Plan
-
Cleared by cardiology for discharge today
Assessment / Plan
Assessment / Plan
#Acute heart failure with preserved ejection fraction
Echo July 2023: Mild concentric LVH with EF 60-65%
12/13/2023 cardiac catheterization showing elevated filling pressures
Cardiology following, diuresed well on Lasix 80 mg IV twice daily
Creatinine bumped today at 1.3
Cardiology has transitioned her to Lasix 80 mg p.o. daily
Medically stable for discharge today, follow-up with cardiology in the office, and PCP in 1 week
Compression to lower extremities
#Chest pressure
Unclear etiology, resolved
12/13/2023 cardiac catheterization showing mild noncritical coronary artery disease
#Paroxysmal atrial fibrillation
History of multiple ablations and cardioversions
Eliquis resumed
Continue metoprolol and propafenone for rate control
Essential Hypertension
-Continue losartan and metoprolol with hold parameters
Musculoskeletal back pain
� Tylenol prn
Diabetes Mellitus, Insulin-Dependent
-HgbA1C 8.1
-Continue patient's own insulin pump
Chronic Anemia
-Continue iron supplement
GERD
-Continue Protonix
Obstructive Sleep Apnea
-Continue CPAP
Obesity due to excess calories
� Affects all aspects of care
DVT proph: Eliquis
Code Status: Full Code
Physical Exam
General: Obese, no acute distress
HEENT: Normocephalic, Atraumatic, EOMI, MMM
Respiratory: Clear to Auscultation bilaterally
Cardiac: Normal S1/S2, Regular Rate and Rhythm
GI: Soft, Nontender, Nondistended, Normal Bowel Sounds
Extremities: No Clubbing, Cyanosis
3+ bilateral lower extremity edema, improved from admission
Neuro: Nonfocal/Grossly Intact
Psych: Calm, Cooperative
Derm: No Visible lesions
Anticipated Discharge: Today
Subjective/Interval History
-
Date of Service: December 15, 2023
Patient reports dyspnea with activity/shortness of breath has resolved. No fever, no vomiting.
Objective Data
-
Labs:
Laboratory Results
12/15/23 12/15/23
05:03 05:29
WBC 3.6 L
Hgb 10.4 L
Hct 31.4 L
Plt Count 119 L
Sodium 135
Potassium 4.0
Chloride 98
Carbon Dioxide 29
BUN 38 H
Creatinine 1.3 H
Glucose 170 H
Calcium 9.2
Vital Signs:
Vital Signs
Temp Pulse Resp BP Pulse Ox
98.3 F 65 17 113/38 98
12/15/23 07:51 12/15/23 07:51 12/15/23 07:51 12/15/23 07:51 12/15/23 07:51
I&O
12/14/23 12/15/23 12/16/23
06:59 06:59 06:59
Intake Total 725 / 725 1455 / 1455
Output Total 1000 / 1000
Balance -275 / -275 1455 / 1455
[2023-12-15] MEDS: RYTHMOL 150 MG PO (08:33)
[2023-12-15] MEDS: LOPRESSOR 50 MG PO (08:33)
[2023-12-15] MEDS: ELIQUIS 5 MG PO (08:34)
[2023-12-15] MEDS: PROTONIX 40 MG PO (08:34)
[2023-12-15] MEDS: COZAAR 50 MG PO (08:34)
[2023-12-15] MEDS: PATIENT'S OWN INSULIN PUMP 8.5 UNITS SC (08:36)
[2023-12-15] MEDS: OCEAN, SALINE MIST 1 SPRAYS NASAL (08:42)
[2023-12-15] MEDS: LASIX IV (09:31)
--- NOTE | 2023-12-15 09:55 | W.PN.CARDCBS ---
Today's Communication / Plan
-
Stable cardiology status for discharge
Changed to Lasix 80 mg daily
Gave slip for renal profile to be done next week
Follow-up will be arranged
Impression / Plan
-
Please refer to office note dated 12/11/23 as official consult
Primary Set Up Operator Tool: Dr. Boles
Impression:
Presentation with chest pressure, orthopnea, weight gain, LE edema
Suspected acute on chronic HFpEF
Negative trop x1
Sinus bradycardia
Paroxysmal atrial fibrillation s/p ablation 11/2013, 05/2023
Chronic OAC with xarelto
HTN
IDDM
PVCs
IAN on CPAP
Lexiscan nuclear stress test 02/2023: Abnormal perfusion imaging with small mild anteroapical ischemia with reversible mid to apical inferolateral defect which improves with prone imaging most consistent with STA, EF 67%
ECHO 08/06/2023: EF 60 to 65%, mild concentric LVH, moderately dilated right atrium, trace MR, moderate TR, mild pulm HTN with PAP 40 mmHg, no pericardial effusion, pleural effusion noted
Echo 12/13/2023: EF 55-60%, severe TR, mildly dilated and hypokinetic right ventricle
R&LHC 12/13/2023: Mild noncritical CAD. No focal obstructive stenosis. Preserved LV systolic function. Elevated right and left ventricular filling pressures.
Plan:
She feels much improved
Weight seems to have plateaued with mild renal insufficiency suggesting that she is either euvolemic or slightly overdiuresed
Will stop IV Lasix and change to Lasix 80 mg daily
Suspect some of elevated pulmonary capillary wedge pressure on catheterization may have been due to TR
Not a candidate for Farxiga or Jardiance given type 1 diabetes
She feels well and wants to go home
Will check renal profile as an outpatient next week and arrange follow-up visit
Gave slip for outpatient cardiac rehab
Discussed with primary service
New med is Crestor 5 mg daily during this admission
Progress Note - Set Up Operator Tool
Subjective
Date of Service: December 15, 2023
No complaints
Objective
Labs:
12/15/23 05:29
12/15/23 05:03
Labs
Hgb 10.4 g/dL (12.0-16.0) L 12/15/23 05:29
Hct 31.4 % (37.0-47.0) L 12/15/23 05:29
Plt Count 119 10^3/uL (130-400) L 12/15/23 05:29
Sodium 135 mmol/L (135-145) 12/15/23 05:03
Potassium 4.0 mmol/L (3.5-5.1) 12/15/23 05:03
BUN 38 mg/dl (7-17) H 12/15/23 05:03
Creatinine 1.3 mg/dL (0.6-1.0) H 12/15/23 05:03
Glucose 170 mg/dl (70-99) H 12/15/23 05:03
Troponins
12/12/23 12/15/23
10:23 05:03
Troponin I < 0.012 < 0.012
Vital Signs and I&O:
Vital Signs
Temp Pulse Resp BP Pulse Ox
98.3 F 65 17 113/38 98
12/15/23 07:51 12/15/23 08:34 12/15/23 07:51 12/15/23 08:34 12/15/23 07:51
Vital Signs
Temp Pulse Resp BP Pulse Ox
98.3 F 65 17 113/38 98
12/15/23 07:51 12/15/23 08:34 12/15/23 07:51 12/15/23 08:34 12/15/23 07:51
Intake & Output
12/13/23 12/14/23 12/15/23 12/16/23
06:59 06:59 06:59 06:59
Intake Total 700 / 700 725 / 725 1455 / 1455
Output Total 1000 / 1000
Balance 700 / 700 -275 / -275 1455 / 1455
Physical Exam
Physical Exam
General: Well developed, well nourished in NAD.
Neck: Supple, no JVD, HJR, carotids +2 B/L, no bruits bilaterally.
Heart: Non displaced PMI, RRR, no murmurs, No S3, S4, no rubs.
Lungs: Clear to auscultation bilaterally, no wheeze, rhonchi, rubs bilaterally,
normal expiratory phase.
Extremities: No clubbing, cyanosis or edema bilaterally.
Neuro: Grossly nonfocal, awake, alert and oriented x3.
--- NOTE | 2023-12-15 11:14 | W.DCSUMMARY ---
Discharge Summary
Discharge Data
Date of Admission: 12/11/23
Date of Discharge: 12/15/23
-
Pending Results: No
Hospital Course
Discharge diagnosis:
Acute heart failure with a preserved ejection fraction
Chest pressure
Nonobstructive coronary artery disease
Paroxysmal atrial fibrillation on Eliquis
Benign essential hypertension
Musculoskeletal back pain
Diabetes on insulin pump
Chronic anemia
Gastroesophageal reflux disease
Obstructive sleep apnea
Obesity due to excess calories
Consults: Cardiology
R&C 12/13/2023: Mild noncritical CAD. No focal obstructive stenosis. Preserved LV systolic function. Elevated right and left ventricular filling pressures.
Hospital course:
68-year-old female with a past medical history of CHF, paroxysmal atrial fibrillation on Eliquis, hypertension, diabetes, obstructive sleep apnea, and GERD was admitted for acute heart failure with preserved ejection fraction. Patient was diuresed
with Lasix 80 mg IV twice daily. She also complained of chest pressure. Cardiac catheterization showed mild noncritical coronary artery disease, elevated right and left field trickle filling pressures.
Cardiology started her on rosuvastatin 5 mg every afternoon. She was continued on Lasix 80 mg IV twice daily. After several days, her shortness of breath resolved. Her weight trended down. She did have a bump in her creatinine to 1.3, from 1.0.
Cardiology recommended she be discharged on her previous Lasix dose of 80 mg daily, she needs a repeat BMP in 1 week. Cardiology provided her with a blood work slip. She has been referred for cardiac rehab.
Patient is medically stable for discharge. She needs to follow-up with her primary care doctor in 1 week, as well as cardiology in the office.
Disposition: Home, self-care
Discharge planning: Required 39 minutes
Discharge Plan
-
Patient Disposition: Home (Routine Discharge)
Discharge Diagnosis/Procedures: Congestive heart failure, chest pain status post cardiac catheterization showing mild nonobstructive coronary artery disease
Condition: Good
Diet: Low Cholesterol and 2 Gram Sodium
Activity: As tolerated
Specialty Instructions: Weigh Daily- Call MD for wt gain/loss 3 lbs overnight/5 lbs in 1 week
Activity Restrictions/Additional Instructions:
Cardiology recommends you be discharged on Lasix 80 mg daily, Crestor/rosuvastatin 5 mg every evening.
Please follow-up with cardiology in the office as directed, and your primary care doctor in 1 week.
Instructions: *[facility] Heart Failure Instructions
Stand Alone Forms: DC Instructions- Cath/EP Lab
Referrals:
Zay Boles MD [Active] - 01/08/24 1:20 pm
Amina Connelly CRNP [Family Provider] - in one week
Prescriptions:
New
acetaminophen [Tylenol Extra Strength] 500 mg Tablet
1,000 mg PO TIDPRN PRN (Reason: mild pain or fever) Qty: 60 0RF
nitroglycerin 0.4 mg Tablet, Sublingual
0.4 mg sublingual [id number] PRN (Reason: Chest pain) Qty: 30 0RF
rosuvastatin 5 mg Tablet
5 mg PO QPM Qty: 30 0RF
Continued
metoprolol tartrate 25 MG tablet
50 mg PO BID
propafenone 150 mg Tablet
150 mg PO BID
Patient Own Insulin Pump
0 unit SC USEASDIRECTD
Patient Comments:
12/11/2023: Pt uses Fiasp 'INJECT 100 UNITS DAILY VIA INSULIN PUMP E10.'
losartan 50 mg Tablet
50 mg PO BID Qty: 60 0RF
furosemide 80 mg Tablet
80 mg PO DAILY Qty: 30 0RF
Eliquis 5 mg tablet
5 mg PO BID Qty: 60 0RF
pantoprazole 40 mg tablet,delayed release (DR/EC)
40 mg PO BID
Discharge Orders:
Discharge Patient (As Directed); Ordered 12/15/23
Ordered By: Farhan Do
Discharge Date and Time
Print Language: BULGARIAN
[2023-12-15 11:17] LABS: Glucose - Point of Care 232 mg/dl (70-99)
--- NOTE | 2023-12-15 12:26 | CM ---
Addendum entered by Betsy Ortiz 12/15/23 12:31:
regulatory product manager offered patient visiting nurses at discharge however patient declined visiting nurses services.
Original Note:
Chart reviewed and patient has been cleared for discharge.
Plan; Home no needs.
[2023-12-15] MEDS: PATIENT'S OWN INSULIN PUMP 5.94 UNITS SC (12:29)
== END 2023-12-15 13:57 | disposition home or self-care (01) | DRG 286 ==
LOC: 4 WEST ACU 20:50
PROVIDERS: Emergency Medicine; Internal Medicine Cardiovascular Disease; Nurse Practitioner Family; Physician Assistant; Physician Assistant Medical; ADMITTING PHYSICIAN Internal Medicine; ATTENDING PHYSICIAN Family Medicine; EMERGENCY PHYSICIAN Emergency Medicine; FAMILY PHYSICIAN Nurse Practitioner Adult Health
PROC: B211YZZ Fluoroscopy of Multiple Coronary Arteries using Other Contrast (ICD-10-PCS; 2023-12-13)
PROC: 4A023N8 Measurement of Cardiac Sampling and Pressure, Bilateral, Percutaneous Approach (ICD-10-PCS; 2023-12-13)
PROC: B215YZZ Fluoroscopy of Left Heart using Other Contrast (ICD-10-PCS; 2023-12-13)
DX: I11.0 Hypertensive heart disease with heart failure (principal); I50.33 Acute on chronic diastolic (congestive) heart failure; I48.0 Paroxysmal atrial fibrillation; E11.9 Type 2 diabetes mellitus without complications; E78.5 Hyperlipidemia, unspecified; G47.33 Obstructive sleep apnea (adult) (pediatric); I07.1 Rheumatic tricuspid insufficiency; I25.10 Atherosclerotic heart disease of native coronary artery without angina pectoris; I49.3 Ventricular premature depolarization; D64.9 Anemia, unspecified; K21.9 Gastro-esophageal reflux disease without esophagitis; M54.9 Dorsalgia, unspecified; R00.1 Bradycardia, unspecified; E66.09 Other obesity due to excess calories; Z79.01 Long term (current) use of anticoagulants; Z79.4 Long term (current) use of insulin; Z79.899 Other long term (current) drug therapy; Z87.891 Personal history of nicotine dependence; Z96.41 Presence of insulin pump (external) (internal); Z88.2 Allergy status to sulfonamides; Z68.30 Body mass index [BMI] 30.0-30.9, adult
CPT/HCPCS: 71046; 80048; 80053; 82248; 82962; 83036; 83735; 83880; 84484; 85025; 85027; 93005; 93306; 93460; 96374; 99285; C1769; C1894; Q9950; Q9967

== ENCOUNTER → 2024-01-09 10:26 | Outpatient (REF) | payer MEDICARE, OTHER, SELFPAY | LOC: WDC 10:26 | PROVIDERS: ATTENDING PHYSICIAN Nurse Practitioner Adult Health | DX: Z12.31 Encounter for screening mammogram for malignant neoplasm of breast (principal) | CPT/HCPCS: 77063; 77067 ==

== ENCOUNTER 2024-07-15 07:28 | Inpatient (IN) | payer MEDICARE, OTHER, SELFPAY ==
[2024-07-14] VITALS (21 sets, daily range): BP systolic 54–199; BP diastolic 36–67
[2024-07-14 08:22] LABS: Hematocrit 35.5 % (37.0-47.0); Hemoglobin 11.4 g/dL (12.0-16.0); Mean Corp Hgb Conc. 32.1 g/dL (33.0-37.0); Mean Corpuscular Hgb 29.7 pg (27.0-31.0); Mean Corpuscular Volume 92.4 fL (81.0-99.0); Mean Platelet Volume 10.1 fL (7.4-10.4); Platelet Count 153 10^3/uL (130-400); Red Blood Cell Count 3.84 10^6/uL (4.20-5.40); Red Cell Dist. Width 14.6 % (11.5-14.5); White Blood Cell Count 3.2 10^3/uL (4.8-10.8)
[2024-07-14 08:26] LABS: PT 13.5 Sec (11.4-14.6)
--- NOTE | 2024-07-14 10:23 | PTCARENOTE ---
[address] scan and positioned on imaging table after DR Garcia updated. Scan done and transferred back to IR holding area. C/o nausea on return. Dr Garcia at bedside and updating patient
--- NOTE | 2024-07-14 10:23 | W.PN.UPDATE ---
Update Note
Progress Note Update
Patient reported abdominal pain which radiated to both shoulders and her back, which began immediately after her liver biopsy. She currently reports that her pain in 08/03, and that she just doesn't 'feel right'. She is also having some nausea.
Vitals are stable, current HR is in 60's and BP is 191/62.
Noncontrast CT abdomen was obtained, which shows a small amount of bleeding around the liver, and into the peritoneal cavity.
Given hemodynamic stability, and small amount of bleeding seen on CT, do not suspect arterial bleeding. Likely venous bleeding, which should be self limiting. Will check a repeat hemoglobin level.
D/W patient, who understands. Her pain is now slightly improved after Dilaudid 0.5 mg was given IV.
[2024-07-14 11:25] LABS: Glucose - Point of Care 205 mg/dl (70-99)
[2024-07-14 11:31] LABS: Hematocrit 29.4 % (37.0-47.0); Hemoglobin 9.6 g/dL (12.0-16.0); Mean Corp Hgb Conc. 32.7 g/dL (33.0-37.0); Mean Corpuscular Hgb 30.1 pg (27.0-31.0); Mean Corpuscular Volume 92.2 fL (81.0-99.0); Mean Platelet Volume 10.2 fL (7.4-10.4); Platelet Count 134 10^3/uL (130-400); Red Blood Cell Count 3.19 10^6/uL (4.20-5.40); Red Cell Dist. Width 14.3 % (11.5-14.5); White Blood Cell Count 5.5 10^3/uL (4.8-10.8)
[2024-07-14 13:26] LABS: Hematocrit 30.3 % (37.0-47.0); Hemoglobin 9.8 g/dL (12.0-16.0)
--- NOTE | 2024-07-14 13:37 | W.PN.UPDATE ---
Addendum entered and electronically signed by Missael Garcia MD 07/14/24 14:22:
Patient got up to walk and 'didn't feel right.' She would feel more comfortable staying in hospital for observation and pain control.
Appreciate Dr. Powers's input.
Original Note:
Update Note
Progress Note Update
Patient reports continued pain in her abdomen, groin, and both shoulders, rated 3/10. Nausea is improved.
HR 64, BP 174/74.
Hemoglobin 11.4 this morning, then 9.6 at 11 am, then 9.8 at 1 pm.
It seems that the bleeding is slowing. I advised her that she will have some pain for at least several days, until the blood is reabsorbed. I explained the options - she can go home with pain medication, or be admitted to the hospital for monitoring
and pain control. She would like to see how she feels after she gets up to walk.
[2024-07-14] MEDS: DILAUDID 0.5 MG IV (14:07)
[2024-07-14] MEDS: APRESOLINE 10 MG IV (17:04)
[2024-07-14] MEDS: DILAUDID 0.25 MG IV ×2 (17:09→20:16)
[2024-07-14] MEDS: ZOFRAN 4 MG IV (17:12)
[2024-07-14] MEDS: LOPRESSOR 50 MG PO (18:07)
[2024-07-14] MEDS: COZAAR 50 MG PO (18:07)
--- NOTE | 2024-07-14 19:42 | PTCARENOTE ---
Patient admitted to 2S from IR at 1625. Patient with c/o 5/10 RLQ pain, hypertensive, and one episode emesis. Patient stated she typically takes BP meds at 1700. Dr. Powers notified, who changed dilaudid order to q3h instead of q4h, added PRN
hydralazine, and gave verbal order to change BP meds to 1700. Hydralazine, dilaudid, and zofran were given. BP rechecked and was still elevated. Scheduled BP meds were given and patient immediately had an episode of emesis. notified, who was
unavailable, so cross coverage, Dr. Merchant, notified. Ordered EKG, and urgent BMP and Mg. Phlebotomy attempted to draw labs but were unsuccessful, and patient refused another blood draw, stating she would have them drawn tomorrow. Dr. Merchant notified.
No new orders.
[2024-07-14] MEDS: PROTONIX 40 MG PO (20:07)
[2024-07-15] MEDS: DILAUDID 0.25 MG IV ×2 (00:31→05:06)
[2024-07-15] MEDS: ZOFRAN 4 MG IV (00:41)
--- NOTE | 2024-07-15 02:37 | DOWNTIME ---
There was a [employer] Client Manager Marketing Downtime on 07/15/2024 from 0100 to 07/15/2023 at 0235 . Downtime documentation of patient's care, including medication administrations, has been reconciled in the electronic record per guidelines. Refer to the
patient's paper chart under the miscellaneous tab to see printed paper medication records and downtime forms.
[2024-07-15 06:03] LABS: Hematocrit 28.2 % (37.0-47.0); Hemoglobin 9.2 g/dL (12.0-16.0); Mean Corp Hgb Conc. 32.6 g/dL (33.0-37.0); Mean Corpuscular Hgb 30.1 pg (27.0-31.0); Mean Corpuscular Volume 92.2 fL (81.0-99.0); Mean Platelet Volume 10.1 fL (7.4-10.4); Platelet Count 146 10^3/uL (130-400); Red Blood Cell Count 3.06 10^6/uL (4.20-5.40); Red Cell Dist. Width 14.6 % (11.5-14.5); White Blood Cell Count 3.1 10^3/uL (4.8-10.8)
[2024-07-15 06:25] LABS: Blood Urea Nitrogen 44 mg/dl (7-17); Calcium 9.2 mg/dl (8.4-10.2); Carbon Dioxide 23 mmol/L (22-30); Chloride 104 mmol/L (98-107); Glucose 139 mg/dl (70-99); Magnesium 2.3 mg/dl (1.6-2.3); Potassium 4.7 mmol/L (3.5-5.1); Sodium 137 mmol/L (135-145); eGFR 45.07
[2024-07-15 07:12] VITALS: BP 139/46
--- NOTE | 2024-07-15 07:46 | W.PN.UPDATE ---
Update Note
Progress Note Update
Patient reports that her pain is 'a little better.' Had some emesis overnight, but reports that her nausea is now improved.
Hemodynamically stable. Hemoglobin 9.2 this morning, relatively stable compared to 9.8 yesterday.
Her pain should get better and better each day. OK to resume anticoagulation in approximately 5-7 days, if she continues to feel better.
[2024-07-15] MEDS: LASIX 80 MG PO (08:25)
[2024-07-15] MEDS: LOPRESSOR 50 MG PO (08:25)
[2024-07-15] MEDS: COZAAR 50 MG PO (08:25)
[2024-07-15] MEDS: PROTONIX 40 MG PO (08:25)
[2024-07-15] MEDS: COMPAZINE 5 MG IV (09:28)
[2024-07-15] MEDS: PT'S OWN INSULIN PUMP - NovoLOG 1.6 UNIT SC (09:48)
--- NOTE | 2024-07-15 11:59 | W.PN.HOSP.TC ---
Addendum entered and electronically signed by Vickie Powers MD 07/15/24 14:29:
total DC time 36 min
Original Note:
Today's Communication/Plan
-
see A/P
Assessment / Plan
Assessment / Plan
This is a 68-year-old female with past medical history of CHF, paroxysmal atrial fibrillation on Eliquis, hypertension, IDDM, obstructive sleep apnea, and GERD; who presented for routine liver biopsy for cirrhosis.
Per IR, the patient complained of abdominal pain with radiation to both shoulders and her back following the liver biopsy procedure.
A noncontrast CT abdomen obtained showed a small amount of bleeding around the liver and into the peritoneal cavity.
She is hemodynamic stability, and the small amount of bleeding seen on CT (do not suspect arterial bleeding, likely venous bleeding) should be self limiting per IR.
She was admitted to the hospitalist service for observation and pain control.
A/P:
# Acute blood loss anemia on chronic anemia
# Acute anemia due to bleeding following liver biopsy
Hemoglobin 11.4 -> 9.2 today
Cont to monitor Hgb
# Abdominal pain with radiation to shoulders and her back following liver biopsy procedure
CT AP noted small amount of perihepatic hemorrhage, measuring 1.1 cm in greatest thickness, with a small amount of hemorrhage extending inferiorly to the liver within the peritoneal cavity. Also small bubbles of air adjacent to the liver, likely
related to recent liver biopsy.
Pain control with IV Dilaudid while in the hospital, to change to oxycodone after DC
Clears for now, advance diet as tolerated when abdominal pain has resolved
# Chronic heart failure with preserved ejection fraction
# Nonobstructive coronary artery disease
Continue prior to admission Lasix
# Paroxysmal atrial fibrillation
# History of multiple ablations and cardioversions
Apparently pt nt on Eliquis anymore
Continue home metoprolol for rate control
# Essential Hypertension
Continue home losartan and metoprolol with hold parameters
# IDDM on insulin pump
DM RN BURN CS for insulin pump
# Gastroesophageal reflux disease
Continue Protonix, can change to IV while in the hospital
# Obstructive sleep apnea
Continue CPAP
# Obesity due to excess calories
DVT ppx: SCD
FC
DW RN
Anticipated Discharge: Today
Subjective/Interval History
-
Date of Service: July 15, 2024
Objective Data
-
Labs:
Laboratory Results
07/15/24
05:34
WBC 3.1 L
Hgb 9.2 L
Hct 28.2 L
Plt Count 146
Sodium 137
Potassium 4.7
Chloride 104
Carbon Dioxide 23
BUN 44 H
Creatinine 1.3 H
Glucose 139 H
Calcium 9.2
Vital Signs:
Vital Signs
Temp Pulse Resp BP Pulse Ox
36.7 C 76 18 139/46 93
07/15/24 07:12 07/15/24 08:25 07/15/24 07:12 07/15/24 08:25 07/15/24 07:12
I&O
07/14/24 07/15/24 07/16/24
06:59 06:59 06:59
Output Total 120 / 120
Balance -120 / -120
Review of Systems
-
Abdomen/GI: Reports Abdominal Pain (improved )
Physical Exam
-
General: Well Developed, Well Nourished, No Apparent Distress, Comfortable and Conversant; Negative Respiratory Distress
HEENT: Normocephalic, Atraumatic, Nose Appears Normal and Ears Appear Normal; Negative Oxygen
Respiratory: Clear to Auscultation and Non Labored Respirations; Negative Accessory Resp Muscle Use
Cardiac: Regular Rhythm and S1/S2
GI: Soft, Nondistended, Normal Bowel Sounds and Tender (mild RUQ )
Skin: Warm and Dry
Neuro: Awake, Alert, Oriented and AO x 3
Psych: Calm and Intact Judgement/Insight
Data Reviewed
-
Labs: Labs Reviewed by me
--- NOTE | 2024-07-15 12:01 | PTCARENOTE ---
pt aaox3. states slight pain in right abd surgical site. pt does not want pain med at this time. pt using own insulin pump with glucose monitor. pt states she still feels nauseous and does not want zofran due to cardiac issues. made aware
meds ordered.
--- NOTE | 2024-07-15 12:08 | CM ---
Met with pt at bedside
Pt reports she lives with her in a 2 story home; 14 steps to enter, FF set-up
Independent at baseline, retired, drives
DME - CPAP, unsure of supplier
SNF/HH - denies past hx
Has ride at d/c
PCP - Amina Connelly at [facility]
Pharm - [facility]
Given LEDBETTER
Plan - anticipate home no needs
[2024-07-15 12:35] LABS: Glucose - Point of Care 171 mg/dl (70-99)
[2024-07-15] MEDS: PT'S OWN INSULIN PUMP - NovoLOG 1.8 UNIT SC (13:11)
--- NOTE | 2024-07-15 14:01 | W.DCSUMMARY ---
Discharge Summary
Discharge Data
Date of Admission: 07/15/24
Date of Discharge: 07/15/24
-
Pending Results: No
Hospital Course
Principal Diagnosis:
Acute blood loss anemia and right upper quadrant abdominal pain, due to bleeding following liver biopsy
Chronic Diagnoses:�
Essential Hypertension, on home losartan and metoprolol
Insulin-dependent diabetes on insulin pump
Gastroesophageal reflux disease
Obstructive sleep apnea
Obesity due to excess calories
Chronic heart failure with preserved ejection fraction
Paroxysmal atrial fibrillation
Consultations:�
Interventional radiology
Procedures:�
Liver biopsy
Clinical course:�
This is a 68-year-old female with past medical history as stated above, who presented for routine liver biopsy for cirrhosis.
Following the procedure, the patient complained of severe abdominal pain.
Noncontrast CT abdomen obtained showed a small amount of bleeding around the liver and into the peritoneal cavity.
She was admitted to observe overnight.
Problem 1:
Acute blood loss anemia due to bleeding following liver biopsy.
Her hemoglobin trended down from 11.4 preprocedure to 9.2 on the day of discharge. It has been stable at around 9.
She can check repeat hemoglobin in 1 week with result to her PCP.
Problem 2:
Abdominal pain with radiation to shoulders and her back following liver biopsy procedure.
The pain has much improved the procedure.
She can continue oxycodone as needed for pain control.
As for the rest of her medical problems, they were stable during her hospital stay.
Discharge Plan
-
Patient Disposition: Home (Routine Discharge)
Discharge Diagnosis/Procedures: Acute blood loss anemia due to bleeding following liver biopsy
Condition: Fair
Diet: As tolerated
Activity: As tolerated
Blood Work: CBC in 1 week, result to your PCP
Referrals:
Lashay Jackson PA [Family Provider] - in less than 1 week
Prescriptions:
New
oxycodone 5 mg tablet
5 mg PO Q8H PRN (Reason: Pain) Qty: 10 0RF
Continued
metoprolol tartrate 25 MG tablet
50 mg PO BID
Patient Own Insulin Pump
0 unit SC USEASDIRECTD
Patient Comments:
12/11/2023: Pt uses Fiasp 'INJECT 100 UNITS DAILY VIA INSULIN PUMP E10.'
losartan 50 mg Tablet
50 mg PO BID Qty: 60 0RF
furosemide 80 mg Tablet
80 mg PO DAILY Qty: 30 0RF
pantoprazole 40 mg tablet,delayed release (DR/EC)
40 mg PO BID
nitroglycerin 0.4 mg Tablet, Sublingual
0.4 mg sublingual [id number] PRN (Reason: Chest pain) Qty: 30 0RF
Held
acetaminophen [Tylenol Extra Strength] 500 mg Tablet
1,000 mg PO TIDPRN PRN (Reason: mild pain or fever) Qty: 60 0RF
Hold Instructions: Resume on 07/22/24. until outpt LFT result
Discharge Orders:
Discharge Patient (As Directed); Ordered 07/14/24
Ordered By: Missael Garcia
Discharge Date and Time
Print Language: PORTUGUESE
[2024-07-15 14:15] VITALS: BP 130/44
--- NOTE | 2024-07-15 14:16 | PTCARENOTE ---
pt had lunch with no difficulties no nausea. dr nina updated and will proceed with discharge
== END 2024-07-15 14:49 | disposition home or self-care (01) | DRG 920 ==
LOC: 2 SOUTH 07:28
PROVIDERS: Radiology Vascular & Interventional Radiology; ADMITTING PHYSICIAN Internal Medicine; FAMILY PHYSICIAN Physician Assistant
PROC: 0FB13ZX Excision of Right Lobe Liver, Percutaneous Approach, Diagnostic (ICD-10-PCS; 2024-07-14)
DX: K91.840 Postprocedural hemorrhage of a digestive system organ or structure following a digestive system procedure (principal); D62 Acute posthemorrhagic anemia; I50.32 Chronic diastolic (congestive) heart failure; R10.11 Right upper quadrant pain; R11.2 Nausea with vomiting, unspecified; Y84.8 Other medical procedures as the cause of abnormal reaction of the patient, or of later complication, without mention of misadventure at the time of the procedure; K74.60 Unspecified cirrhosis of liver; E11.9 Type 2 diabetes mellitus without complications; Z96.41 Presence of insulin pump (external) (internal); I11.0 Hypertensive heart disease with heart failure; K21.9 Gastro-esophageal reflux disease without esophagitis; G47.33 Obstructive sleep apnea (adult) (pediatric); E66.09 Other obesity due to excess calories; I48.0 Paroxysmal atrial fibrillation; Z79.01 Long term (current) use of anticoagulants; Z79.4 Long term (current) use of insulin
CPT/HCPCS: 88307; 36415; 47000; 74150; 76942; 80048; 82962; 83735; 85014; 85018; 85027; 85610; 88313; 93005; 99152; 99153

== ENCOUNTER → 2024-07-24 08:42 | Outpatient (REF) | payer MEDICARE, OTHER, SELFPAY | LOC: PAVMRI 08:42 | PROVIDERS: ATTENDING PHYSICIAN Physician Assistant Surgical; FAMILY PHYSICIAN Nurse Practitioner Adult Health | DX: M75.02 Adhesive capsulitis of left shoulder (principal) | CPT/HCPCS: 73221 ==

== ENCOUNTER → 2024-07-27 10:22 | Outpatient (REF) | payer MEDICARE, OTHER, SELFPAY ==
--- NOTE | 2024-07-14 14:13 | HPS.HSE ---
Addendum entered and electronically signed by Vickie Powers MD 07/14/24 15:09:
Allergies
Allergy/AdvReac Type Severity Reaction Status Date / Time
adhesive [Adhesive] Allergy Rash/SKIN Verified 12/11/23 12:42
RED
crisaborole [From Eucrisa] Allergy Rash Verified 12/11/23 12:42
sulfamethoxazole Allergy GI upset Verified 12/11/23 12:42
[From Bactrim]
trimethoprim [From Bactrim] Allergy GI upset Verified 12/11/23 12:42
Home Medications
metoprolol tartrate 25 mg tablet 50 mg PO BID Blood pressure 01/10/14
Patient Own Insulin Pump 0 unit SC USEASDIRECTD Diabetes 08/05/23
furosemide 80 mg tablet 80 mg PO DAILY Fluid retention/Swelling #30 tabs 08/11/23
losartan 50 mg tablet 50 mg PO BID Blood pressure #60 tabs 08/11/23
pantoprazole 40 mg tablet,delayed release 40 mg PO BID Gastrointestinal Issue 12/11/23
acetaminophen 500 mg tablet (Tylenol Extra Strength) 1,000 mg (2 x 500 mg) PO TIDPRN PRN mild pain or fever #60 tabs 12/15/23
nitroglycerin 0.4 mg sublingual tablet 0.4 mg sublingual [id number] PRN Chest pain #30 tabs 12/15/23
Original Note:
Family Physician
-
Family Physician: Amina Connelly
Chief Complaint
-
Abdominal pain following liver biopsy
History of Present Illness
This is a 68-year-old female with past medical history of CHF, paroxysmal atrial fibrillation on Eliquis, hypertension, IDDM, obstructive sleep apnea, and GERD; who presented for routine liver biopsy for cirrhosis.
Per IR, the patient complained of abdominal pain with radiation to both shoulders and her back following the liver biopsy procedure.
A noncontrast CT abdomen obtained showed a small amount of bleeding around the liver and into the peritoneal cavity.
She is hemodynamic stability, and the small amount of bleeding seen on CT (do not suspect arterial bleeding, likely venous bleeding) should be self limiting per IR.
She was admitted to the hospitalist service for observation and pain control.
Medical History
Past Medical History
Past Medical History: Reports Other
Additional Past Medical History:
Chronic HFpEF
Paroxysmal Atrial Fibrillation
Essential Hypertension
Hyperlipidemia
Diabetes Mellitus, Insulin-Dependent
Pulmonary Hypertension
Obstructive Sleep Apnea
GERD
Past Surgical History: Reports Other
Additional Past Surgical History:
Right Rotator Cuff Repair
Appendectomy
Discectomy
Tubal Ligation
Tonsils and Adenoids
Social History
Tobacco: Non-smoker
Alcohol: None
Family History
Family History: Hypertension
Allergies / Home Medications
Allergies reflects when Allergies were last updated in [employer]
Home Medications with original date entered in [employer]
Allergy/Medication List:
Medications on admission are unable to be verified or confirmed at this time.
Review of Systems
-
Abdomen/GI: Reports See HPI and Abdominal Pain
Physical Exam
Vital Signs
Vital Signs
Temp Pulse Resp BP Pulse Ox
97.8 F 66 21 187/76 97
12/11/23 15:48 12/11/23 19:11 12/11/23 19:11 12/11/23 19:11 12/11/23 19:11
Physical Exam
General: Well Developed, Well Nourished, No Apparent Distress and Conversant
Respiratory: Clear and Non Labored Respirations; No Accessory Resp Muscle Use
Cardiac: S1/S2 and Regular Rhythm
GI: Soft, Non Distended and Tender
Rectal: Deferred by Provider
Skin: Warm and Dry
Neuro: Awake, Alert and Oriented
Psych: Calm and Intact Judgment/Insight
Data Reviewed
-
CT Scan: Report Reviewed by me
Lab Data: Labs Reviewed by me
Impression/Plan
-
This is a 68-year-old female with past medical history of CHF, paroxysmal atrial fibrillation on Eliquis, hypertension, IDDM, obstructive sleep apnea, and GERD; who presented for routine liver biopsy for cirrhosis.
Per IR, the patient complained of abdominal pain with radiation to both shoulders and her back following the liver biopsy procedure.
A noncontrast CT abdomen obtained showed a small amount of bleeding around the liver and into the peritoneal cavity.
She is hemodynamic stability, and the small amount of bleeding seen on CT (do not suspect arterial bleeding, likely venous bleeding) should be self limiting per IR.
She was admitted to the hospitalist service for observation and pain control.
A/P:
# Acute blood loss anemia on chronic anemia
# Acute anemia due to bleeding following liver biopsy
Hemoglobin 11.4 -> 9.8
Cont to monitor Hgb
# Abdominal pain with radiation to shoulders and her back following liver biopsy procedure
CT AP noted small amount of perihepatic hemorrhage, measuring 1.1 cm in greatest thickness, with a small amount of hemorrhage extending inferiorly to the liver within the peritoneal cavity. Also small bubbles of air adjacent to the liver, likely
related to recent liver biopsy.
Pain control with IV Dilaudid
Clears for now, advance diet as tolerated when abdominal pain has resolved
# Chronic heart failure with preserved ejection fraction
# Nonobstructive coronary artery disease
Continue prior to admission Lasix
# Paroxysmal atrial fibrillation
# History of multiple ablations and cardioversions
Cont to hold Eliquis, discussed with IR, can likely resume in 5 days if hemoglobin remains stable at that time
Continue home metoprolol for rate control
# Essential Hypertension
Continue home losartan and metoprolol with hold parameters
# IDDM on insulin pump
DM DIVISION CONTROLLER CS for insulin pump
# Gastroesophageal reflux disease
Continue Protonix, can change to IV twice daily while in the hospital
# Obstructive sleep apnea
Continue CPAP
# Obesity due to excess calories
DVT ppx: SCD
FC
== END ==
LOC: RAD 10:22
PROVIDERS: ATTENDING PHYSICIAN Nurse Practitioner Family; FAMILY PHYSICIAN Nurse Practitioner Adult Health
DX: N95.0 Postmenopausal bleeding (principal); E04.1 Nontoxic single thyroid nodule
CPT/HCPCS: 76536; 76830; 76856

== ENCOUNTER 2024-07-28 15:24 | Emergency (ER) | payer MEDICARE, OTHER, SELFPAY ==
[2024-07-28 15:29] VITALS: BP 153/59
--- NOTE | 2024-07-28 18:31 | ED.GENMED ---
History of Present Illness
General
Chief Complaint: Abdominal Pain
Source: patient and records
Exam Limitations: none
Time Seen by Provider: 07/28/24 17:58
Nursing documentation reviewed up to this point in time: agreed with
History of Present Illness
History of Present Illness:
68-year-old female with past medical history as noted presents to the ER for evaluation of abdominal pain. Of note patient had liver biopsy for fatty liver disease/cirrhosis on 07/14/2024 with interventional radiology; this was complicated by
postoperative bleeding requiring admission and serial hemoglobins. She says that when she left the hospital she was feeling well did not have abdominal pain for about 2 weeks; this past Saturday pain returned and has been generally worsening since
then. Pain is located in the same location�right upper abdomen. No triggering or relieving factors noted. She denies any associated nausea, vomiting, diarrhea, urinary symptoms or any other complaints. She says symptoms are similar to postop
pain she had from hemorrhage. She was previously on Eliquis for A-fib but has not been on this since April.
Past History
Past History
ED Past Medical History: Arrthythmia (Atrial fibrillation, atrial flutter), CHF, GERD, HTN and IDDM
ED Past Surgical History: Appendectomy, Cardiac and Gynecological
Social History
Tobacco: Former smoker
Alcohol: Occasional
Family History
Family History: CAD
Review of Systems
Review of Systems
All Other Systems: ROS reviewed and negative except as documented in HPI and ROS
Constitutional: Denies fever or chills
Respiratory: Denies trouble breathing
Cardiac: Denies chest pain
ABD/GI: Reports abdominal pain; Denies nausea, vomiting or diarrhea
: Denies flank pain
Musculoskeletal: Denies neck pain or back pain
Neurological: Denies dizzy or headache
Phy Exam
Physical Exam
Physical Exam:
General: Awake, alert, oriented x3; no acute distress
Head: Normocephalic, atraumatic
Eyes: Conjunctiva normal, sclera anicteric
Throat: Airway intact, handling secretions
Neck: Trachea midline
Lungs: Clear to auscultation bilaterally, no wheezing, rales, rhonchi
Heart: Regular rate and rhythm, no murmurs, gallops, or rubs
Abd: Soft, non distended, tender to palpation right upper quadrant; no peritoneal signs, no palpable hepatomegaly
Neuro: No gross deficits
Extremities: Bilateral lower extremity edema +2 pitting
Scores
Heart Failure Risk
Heart Failure Risk Score: Not Applicable
Heart Score for Chest Pain Patients
STEMI patient?: Not applicable
Withdrawal Assessment of Alcohol
Withdrawal Assessment Completed?: Not applicable
Course
Orders/Labs/Results
Orders:
Orders
07/28/24 18:05
CT Abd/pelvis W Iv Cont Urgent
Comment:
Reason For Exam: RUQ pain s/p liver biopsy
07/28/24 18:30
Morphine Sulfate 4 mg IV NOW STA
07/28/24 18:43
Urinalysis Reflex To Culture Urgent
Date Specimen was Collected: 07/28/24
Time Specimen was Collected: 18:30
07/28/24 19:23
Type+Screen Urgent
Complete Blood Count/With Diff Urgent
Comprehensive Metabolic Panel Urgent
Lipase Urgent
PTT Urgent
Prothrombin Time Urgent
07/28/24 21:21
US Periph Venous LOWER Ext Khurram Urgent
Comment:
Reason For Exam: b/l leg swelling
07/28/24 22:25
Morphine Sulfate 4 mg IV NOW STA
Abnormal Lab Results
07/28/24
19:23
WBC 3.3 L 10^3/uL
(4.8-10.8)
RBC 3.80 L 10^6/uL
(4.20-5.40)
Hgb 11.3 L g/dL
(12.0-16.0)
Hct 34.2 L %
(37.0-47.0)
MPV 10.5 H fL
(7.4-10.4)
Absolute Lymphs (auto) 0.9 L 10^3/uL
(1.2-3.4)
Absolute Monos (auto) 0.7 H 10^3/uL
(0.1-0.6)
Monocytes % 20.0 H %
(1.7-9.3)
BUN 56 H mg/dl
(7-17)
Creatinine 1.1 H mg/dL
(0.6-1.0)
Glucose 129 H mg/dl
(70-99)
AST 40 H U/L
(14-36)
ALT 46 H U/L
(0-35)
Alkaline Phosphatase 155 H U/L
(38-126)
07/28/24 19:23
07/28/24 19:23
Vital Signs
Initial and Last Documented VS:
Initial Vital Signs
Temp Pulse Resp BP Pulse Ox
36.3 C 64 16 153/59 97
07/28/24 15:29 07/28/24 15:29 07/28/24 15:29 07/28/24 15:29 07/28/24 15:29
Last Documented Vital Signs
Temp Pulse Resp BP Pulse Ox
36.3 C 61 18 157/64 99
07/28/24 15:29 07/28/24 21:15 07/28/24 21:15 07/28/24 19:18 07/28/24 21:15
MDM/Problems Addressed
Differential Diagnosis Includes:
Postoperative hemorrhage, hepatitis, cholelithiasis, cholecystitis, pancreatitis, PUD/gastritis
MDM/Problems Addressed:
68-year-old female with history as noted presents to the ER for evaluation of right upper quadrant abdominal pain similar to pain she was admitted for 2 weeks ago after she had postoperative bleeding from liver biopsy site. Fortunately she is no
longer on blood thinners. Vitals are normal with exception of mild hypertension. Physical exam as above. Will place an IV send labs including a CBC and a CMP, coags, type and screen, lipase. Will check CT abdomen pelvis. Will treat pain.
Reassess after the above.
Labs reviewed: CBC shows actually improving hemoglobin at 11.3 today; INR acceptable. CMP shows improving creatinine 1.1 from prior 1.3. LFTs marginally abnormal stable. Urinalysis normal. CT abdomen pelvis shows some residual blood products
around the liver but no signs of acute bleeding. Discussed with GI and interventional radiology given her continued pain�will essentially need pain control until blood resorbs. Wonder if she may have had minor repeat hemorrhage Saturday when
symptoms started that has since resolved with residual products noted on CT today. Clinical reassessment patient said pain did improve with morphine still has some mild tenderness to the touch. She also expressed concern that she has been having
some increased swelling in her legs recently�she does have pitting edema on exam we will check duplexes in an abundance of caution but suspect that this is dependent edema.
Bilateral ultrasound negative for DVT suspect this is dependent edema. Advised patient regarding conservative measures for management of both leg swelling as well as her abdominal pain. She feels comfortable with this plan and feels comfortable
with discharge. Spoke about follow-up plan and return precautions. All questions answered.
Chronic conditions affecting care:
Fatty liver disease
Acute Exacerbation and/or Progression of Chronic Illness:
Acutely hypertensive
Acute Exacerbation and/or Progression of Chronic Illness: HTN
*Radiology
Radiology exam reviewed: radiology read reviewed
*Pulse Oximetry
Patient hypoxic: no
*Critical Care Note
Total Time (30-74mins, 75-104mins- exclusive of procedures): Not Applicable
Data Reviewed
Review of Other/Old Records Reveals: Labs and Records
Source: patient and records
ED Attending Note
-
Portions of this chart may have been created with voice recognition software.� Occasional wrong word or��sound alike� substitutions may have occurred due to the inherent limitations of voice recognition software.
Discharge Plan
Departure
Patient Disposition: Home (Routine Discharge)
Date of Disposition: 07/28/24
Time of Disposition: 22:29
Patient with high blood pressure during this ER visit?: Yes
Discharge Problem:
Abdominal pain, Leg swelling
Instructions: Swelling, Abdominal Pain
Prescriptions:
New
oxycodone 5 mg tablet
5 mg PO TID PRN (Reason: Pain) Qty: 14 0RF
No Action
metoprolol tartrate 25 MG tablet
50 mg PO BID
Patient Own Insulin Pump
0 unit SC USEASDIRECTD
Patient Comments:
12/11/2023: Pt uses Fiasp 'INJECT 100 UNITS DAILY VIA INSULIN PUMP E10.'
losartan 50 mg Tablet
50 mg PO BID Qty: 60 0RF
furosemide 80 mg Tablet
80 mg PO DAILY Qty: 30 0RF
pantoprazole 40 mg tablet,delayed release (DR/EC)
40 mg PO BID
acetaminophen [Tylenol Extra Strength] 500 mg Tablet
1,000 mg PO TIDPRN PRN (Reason: mild pain or fever) Qty: 60 0RF
nitroglycerin 0.4 mg Tablet, Sublingual
0.4 mg sublingual [id number] PRN (Reason: Chest pain) Qty: 30 0RF
oxycodone 5 mg tablet
5 mg PO Q8H PRN (Reason: Pain) Qty: 10 0RF
Referrals:
Amina Connelly CRNP [Family Provider] - Follow up in 5-7 days
Activity Restrictions/Additional Instructions:
Thank you for visiting the Emergency Department at [facility].
1. Please schedule a follow up appointment as directed. Call first thing tomorrow morning to make an appointment.
2. If indicated, please take your medications as instructed and indicated on discharge paperwork.
3. If any of your symptoms do not improve, or persist, or become more severe within 6-12 hours, please return to the emergency department for further care.
4. Please return to the emergency department if you develop a headache, neck pain/stiffness, fever greater than 100.4F, chest pain, shortness of breath, persistent nausea, vomiting, slurred speech, difficulty walking, numbness/tingling, weakness,
signs of infection or any other symptoms that are worrisome to you.
Please call [phone] if you have any questions.
Interventions
Interventions:
*Risk Screen - Suicide Last Done: 07/28/24 15:31
*General Assessment Last Done: 07/28/24 19:54
*Neglect/Abuse Screening Last Done: 07/28/24 15:31
*ED- Fall Risk Assessment Last Done: 07/28/24 19:54
ON-Fokpvs-Kemcssvxet Assessment Last Done: 07/28/24 19:53
Discharge Date and Time
Print Language: PASHTO
[2024-07-28 18:41] VITALS: BMI 35.1
[2024-07-28 18:55] LABS: Urine Albumin Negative (Neg - Trace); Urine Bilirubin Negative (Negative); Urine Character Clear (Clear); Urine Color Yellow; Urine Glucose Negative (Negative); Urine Ketone Negative (Negative); Urine Leukocyte Negative (Negative); Urine Nitrite Negative (Negative); Urine Occult Blood Negative (Negative); Urine Urobilinogen Negative (Neg - 1+)
[2024-07-28] MEDS: MORPHINE SULFATE 4 MG IV ×2 (19:15→22:34)
[2024-07-28 19:18] VITALS: BP 157/64
[2024-07-28 19:32] LABS: % Basophils 0.9 % (0-2); % Eosinophils 4.2 % (0-6); % Immature Granulocytes 0.3 % (0-0.5); % Lymphocytes 25.8 % (20.5-51.1); % Neutrophils 48.8 % (42.2-75.2); Absolute Eosinophils 0.1 10^3/uL (0-0.7); Absolute Lymphocytes 0.9 10^3/uL (1.2-3.4); Absolute Monocytes 0.7 10^3/uL (0.1-0.6); Absolute Neutrophils 1.6 10^3/uL (1.4-6.5); Hematocrit 34.2 % (37.0-47.0); Hemoglobin 11.3 g/dL (12.0-16.0); Mean Corpuscular Hgb 29.7 pg (27.0-31.0); Mean Platelet Volume 10.5 fL (7.4-10.4); Nucleated Red Blood Cells % 0 %; Platelet Count 146 10^3/uL (130-400); Red Cell Dist. Width 14.2 % (11.5-14.5); White Blood Cell Count 3.3 10^3/uL (4.8-10.8)
[2024-07-28 19:41] LABS: ALT (SGPT) 46 U/L (0-35); AST (SGOT) 40 U/L (14-36); Albumin 4.6 g/dl (3.5-5.0); Alkaline Phosphatase 155 U/L (38-126); Blood Urea Nitrogen 56 mg/dl (7-17); Calcium 9.3 mg/dl (8.4-10.2); Carbon Dioxide 22 mmol/L (22-30); Chloride 104 mmol/L (98-107); Estimated Creatinine Clearance 59 ml/min; Glucose 129 mg/dl (70-99); Potassium 4.7 mmol/L (3.5-5.1); Sodium 138 mmol/L (135-145); Total Protein 7.4 g/dl (6.3-8.2); eGFR 55.07
[2024-07-28 19:49] LABS: PT 14.5 Sec (11.4-14.6)
[2024-07-28 19:50] LABS: APTT 31.4 Sec (23.4-35.0)
[2024-07-28 19:55] LABS: Lipase 60 U/L (23-300)
[2024-07-28 22:42] VITALS: BP 155/55
== END 2024-07-28 23:50 | disposition home or self-care (01) ==
LOC: EMR 15:24
PROVIDERS: EMERGENCY PHYSICIAN Emergency Medicine; FAMILY PHYSICIAN Nurse Practitioner Adult Health
DX: R10.11 Right upper quadrant pain (principal); R60.0 Localized edema; I48.91 Unspecified atrial fibrillation; I11.0 Hypertensive heart disease with heart failure; I50.9 Heart failure, unspecified; E11.9 Type 2 diabetes mellitus without complications; K21.9 Gastro-esophageal reflux disease without esophagitis; I48.92 Unspecified atrial flutter; I25.10 Atherosclerotic heart disease of native coronary artery without angina pectoris; K76.0 Fatty (change of) liver, not elsewhere classified; K74.60 Unspecified cirrhosis of liver; M19.90 Unspecified osteoarthritis, unspecified site; Z98.890 Other specified postprocedural states; Z79.4 Long term (current) use of insulin; Z87.891 Personal history of nicotine dependence; Z88.1 Allergy status to other antibiotic agents; Z88.2 Allergy status to sulfonamides; Z88.8 Allergy status to other drugs, medicaments and biological substances; Z91.048 Other nonmedicinal substance allergy status
CPT/HCPCS: 99285; 96374; 96376; 74177; 80053; 81003; 83690; 85025; 85610; 85730; 86850; 86900; 86901; 93970; Q9967

== ENCOUNTER → 2025-01-20 12:40 | Outpatient (REF) | payer MEDICARE, OTHER, SELFPAY | LOC: WDC 12:40 | PROVIDERS: ATTENDING PHYSICIAN Family Medicine | DX: Z12.31 Encounter for screening mammogram for malignant neoplasm of breast (principal) | CPT/HCPCS: 77063; 77067 ==

== ENCOUNTER 2025-02-03 07:33 | Day surgery (SDC) | payer MEDICARE, OTHER, SELFPAY ==
[2025-02-03 08:31] LABS: Glucose - Point of Care 103 mg/dl (70-99)
[2025-02-03 08:45] LABS: Glucose - Point of Care 94 mg/dl (70-99)
[2025-02-03 09:21] LABS: Glucose - Point of Care 80 mg/dl (70-99)
[2025-02-03] MEDS: DEXTROSE 50% SYRINGE 12.5 GRAMS IV (09:24)
[2025-02-03 11:02] LABS: Glucose - Point of Care 146 mg/dl (70-99)
== END 2025-02-03 11:10 | disposition home or self-care (01) ==
LOC: CATH 07:33
PROVIDERS: ATTENDING PHYSICIAN Internal Medicine Cardiovascular Disease; FAMILY PHYSICIAN Nurse Practitioner Adult Health; OTHER PHYSICIAN Internal Medicine Cardiovascular Disease
DX: I48.0 Paroxysmal atrial fibrillation (principal); I12.9 Hypertensive chronic kidney disease with stage 1 through stage 4 chronic kidney disease, or unspecified chronic kidney disease; E11.22 Type 2 diabetes mellitus with diabetic chronic kidney disease; N18.31 Chronic kidney disease, stage 3a; Z79.01 Long term (current) use of anticoagulants; I08.1 Rheumatic disorders of both mitral and tricuspid valves; Z79.4 Long term (current) use of insulin; Z79.899 Other long term (current) drug therapy; I48.91 Unspecified atrial fibrillation
CPT/HCPCS: 93312; 93320; 93325; 82962; 92960; 93005

== ENCOUNTER 2025-03-23 19:25 | Inpatient (IN) | payer MEDICARE, OTHER, SELFPAY ==
[2025-03-23] VITALS (8 sets, daily range): BP systolic 107–182; BP diastolic 50–81; BMI 35.6
--- NOTE | 2025-03-23 16:25 | ED.GENMED ---
History of Present Illness
<Miri Ocampo NP - Last Filed: 03/23/25 22:34>
General
Chief Complaint: Breathing Problem
Source: patient
Exam Limitations: none
Time Seen by Provider: 03/23/25 15:50
Nursing documentation reviewed up to this point in time: agreed with
History of Present Illness
History of Present Illness:
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 Patient states she has been experiencing increasing shortness of breath for the past few weeks. She is currently taking Lasix and reports that this dose has
been increased. She reports she is now taking 180 mg of Lasix every morning without improvement. She also notes 11 pound weight gain but is not sure when this started. She denies any chest pain/pressure, denies cough.
Past History
<Miri Ocampo NP - Last Filed: 03/23/25 22:34>
Past History
ED Past Medical History: Arrthythmia (Atrial fibrillation, atrial flutter), CHF, GERD, HTN and IDDM
ED Past Surgical History: Appendectomy, Cardiac and Gynecological
Social History
Tobacco: Former smoker
Alcohol: Occasional
Family History
Family History: CAD
Review of Systems
<Miri Ocampo NP - Last Filed: 03/23/25 22:34>
Review of Systems
Allergies reviewed?: Yes
All Other Systems: ROS reviewed and negative except as documented in HPI and ROS
Constitutional: Reports no symptoms
EENT: Reports no symptoms
Respiratory: Reports trouble breathing
Cardiac: Reports other (+1 edema BLE, 11 pound weight gain.)
ABD/GI: Reports no symptoms
: Reports no symptoms
Musculoskeletal: Reports no symptoms
Skin: Reports no symptoms
Neurological: Reports no symptoms
Psychiatric: Reports no symptoms
Phy Exam
<Miri Ocampo NP - Last Filed: 03/23/25 22:34>
General Physical Exam
General Presentation: mild distress
General age: appears stated age
General Skin: warm and dry
General Habitus: normal
General Mental: alert
Cardiovascular Exam
Cardiovascular Exam: regular rate/rhythm
Pulmonary Exam
Pulmonary Exam: chest non tender, decreased breath sounds (Decreased breath sounds on right) and other (GEORGE with minimal activity)
Cough: no cough
Musculoskeletal Exam
Musculoskeletal Exam: full ROM, edema (+1 edema BLE) and neuro vasc intact
Skin Exam
Skin Exam: normal color, warm/dry and no rash
Psychiatric Exam
Psychiatric Exam: normal mood/affect
Scores
<Miri Ocampo CHHA - Last Filed: 03/23/25 22:34>
Heart Failure Risk
Heart Failure Risk Score: Not Applicable
Course
<Miri Ocampo CHHA - Last Filed: 03/23/25 22:34>
Orders/Labs/Results
Orders:
Orders
03/23/25 13:37
Electrocardiogram (*1) Urgent
Reason for Study: Other
Other Reason for Exam: Respiratory Distress
EKG- Treatment ONCE
CR Chest - 2 Views Urgent
Comment:
Reason For Exam: respiratory distress
03/23/25 16:27
Complete Blood Count/With Diff Urgent
Comprehensive Metabolic Panel Urgent
NT-proBNP Urgent
Troponin I Urgent
03/23/25 19:17
Admit/Transfer Patient As Directed
Co-Sign Provider:
Level of Care: Inpatient admission
Assign to:: Telemetry
Physician / Group: Lorne Colbert
Diagnosis: right pleural effusion
Reason for Telemetry: Arrhythmia
Date to Stop Telemetry: 03/26/25
Time to Stop Telemetry: 11:00
Reason for Hospitalization: right pleural effusion
Expected length of stay greater than two midnights?: Yes
ELOS- Estimated Length of Stay in days: 3
I certify the patient meets the requirements for IP care: Yes
03/23/25 19:18
PRN Pain Medication Management As Directed
May give lesser potent ordered pain med per pt: Yes
preference::
Protocol:: Medication orders for pain may be administered in a
manner that supports deferring to patient preference
when the pt is:
- Requesting an ordered lesser potent pain medication.
Least to most potent pain medications are defined
as: acetaminophen < NSAID < tramadol < opioids
(morphine, oxycodone, hydromorphone).
- Requesting a lesser dose of the same medication IF
ORDERED.
- Requesting a less intrusive route of administration
if both routes are prescribed by the provider (PO <
IV).
03/23/25 19:19
Code Status As Directed
Resuscitation Status: Full Code
03/23/25 20:35
Acetaminophen [Tylenol] 650 mg PO Q4HPRN PRN
Losartan [Cozaar] 50 mg PO BID
Patient Own Insulin Pump 1 unit SC USEASDIRECTD
03/23/25 20:35
Activity As Directed
Activity Level: Ambulate
Intake/ Output As Directed
Frequency: Per unit guidelines
Patient Education As Directed
Type: CHF folder
Comment: give on admission. Document in Interdisciplinary Education record
Sleep Apnea Assessment by RN As Directed
Comment:
Physician Instructions:
Vital Signs As Directed
Frequency: Per unit guidelines
Weight As Directed
Frequency: Daily
Type of Scale: Standing Scale
Comment: Daily morning weight. If unable to stand, use balanced bed scale.
Weight As Directed
Frequency: Once
Type of Scale: Standing Scale
Comment: Upon Admission. If unable to stand, use balanced bed scale.
Pulse Ox/cont/shift [RESP] Routine
Quantity: 1
Special Instructions: Daily pulse oximetry at rest. If greater than 92% at rest also obtain pulse oximetry
while ambulating as tolerated.
03/23/25 21:00
Apixaban [Eliquis] 5 mg PO BID
Metoprolol [Lopressor] 50 mg PO BID
03/24/25 Breakfast
1800 calorie (15 carb) Diabetic
At Your Request: Full Participation
Does patient need a safe tray?: No
Basic Metabolic Panel IN AM
Complete Blood Count/No Diff IN AM
03/24/25 08:00
Fluoxetine HCl [Prozac] 20 mg PO DAILY
Pantoprazole [Protonix] 40 mg PO BID
03/26/25 11:00
DC Protocol for Telemetry ONCE
Abnormal Lab Results
03/23/25
16:27
WBC 4.2 L 10^3/uL
(4.8-10.8)
RBC 4.14 L 10^6/uL
(4.20-5.40)
Hgb 11.8 L g/dL
(12.0-16.0)
MCHC 31.1 L g/dL
(33.0-37.0)
RDW 15.4 H %
(11.5-14.5)
MPV 10.9 H fL
(7.4-10.4)
Absolute Lymphs (auto) 0.9 L 10^3/uL
(1.2-3.4)
Monocytes % 14.9 H %
(1.7-9.3)
BUN 27 H mg/dl
(7-17)
Total Bilirubin 1.7 H mg/dl
(0.2-1.3)
Alkaline Phosphatase 134 H U/L
(38-126)
03/23/25 16:27
03/23/25 16:27
Vital Signs
Initial and Last Documented VS:
Initial Vital Signs
Temp Pulse Resp BP Pulse Ox
97.8 F 55 22 107/65 99
03/23/25 13:44 03/23/25 13:44 03/23/25 13:44 03/23/25 13:44 03/23/25 13:44
Last Documented Vital Signs
Temp Pulse Resp BP Pulse Ox
97.8 F 64 20 171/60 94
03/23/25 20:43 03/23/25 21:13 03/23/25 20:43 03/23/25 21:13 03/23/25 20:43
<Franco Tim MD - Last Filed: 03/23/25 19:20>
Orders/Labs/Results
Orders:
Orders
03/23/25 13:37
Electrocardiogram (*1) Urgent
Reason for Study: Other
Other Reason for Exam: Respiratory Distress
EKG- Treatment ONCE
CR Chest - 2 Views Urgent
Comment:
Reason For Exam: respiratory distress
03/23/25 16:27
Complete Blood Count/With Diff Urgent
Comprehensive Metabolic Panel Urgent
NT-proBNP Urgent
Troponin I Urgent
03/23/25 19:17
Admit/Transfer Patient As Directed
Co-Sign Provider:
Level of Care: Inpatient admission
Assign to:: Telemetry
Physician / Group: Lorne Colbert
Diagnosis: right pleural effusion
Reason for Telemetry: Arrhythmia
Date to Stop Telemetry: 03/26/25
Time to Stop Telemetry: 11:00
Reason for Hospitalization: right pleural effusion
Expected length of stay greater than two midnights?: Yes
ELOS- Estimated Length of Stay in days: 3
I certify the patient meets the requirements for IP care: Yes
03/23/25 19:18
PRN Pain Medication Management As Directed
May give lesser potent ordered pain med per pt: Yes
preference::
Protocol:: Medication orders for pain may be administered in a
manner that supports deferring to patient preference
when the pt is:
- Requesting an ordered lesser potent pain medication.
Least to most potent pain medications are defined
as: acetaminophen < NSAID < tramadol < opioids
(morphine, oxycodone, hydromorphone).
- Requesting a lesser dose of the same medication IF
ORDERED.
- Requesting a less intrusive route of administration
if both routes are prescribed by the provider (PO <
IV).
03/23/25 19:19
Code Status As Directed
Resuscitation Status: Full Code
03/23/25 20:35
Acetaminophen [Tylenol] 650 mg PO Q4HPRN PRN
Losartan [Cozaar] 50 mg PO BID
Patient Own Insulin Pump 1 unit SC USEASDIRECTD
03/23/25 20:35
Activity As Directed
Activity Level: Ambulate
Intake/ Output As Directed
Frequency: Per unit guidelines
Patient Education As Directed
Type: CHF folder
Comment: give on admission. Document in Interdisciplinary Education record
Sleep Apnea Assessment by RN As Directed
Comment:
Physician Instructions:
Vital Signs As Directed
Frequency: Per unit guidelines
Weight As Directed
Frequency: Daily
Type of Scale: Standing Scale
Comment: Daily morning weight. If unable to stand, use balanced bed scale.
Weight As Directed
Frequency: Once
Type of Scale: Standing Scale
Comment: Upon Admission. If unable to stand, use balanced bed scale.
Pulse Ox/cont/shift [RESP] Routine
Quantity: 1
Special Instructions: Daily pulse oximetry at rest. If greater than 92% at rest also obtain pulse oximetry
while ambulating as tolerated.
03/23/25 21:00
Apixaban [Eliquis] 5 mg PO BID
Metoprolol [Lopressor] 50 mg PO BID
03/24/25 Breakfast
1800 calorie (15 carb) Diabetic
At Your Request: Full Participation
Does patient need a safe tray?: No
Basic Metabolic Panel IN AM
Complete Blood Count/No Diff IN AM
03/24/25 08:00
Fluoxetine HCl [Prozac] 20 mg PO DAILY
Pantoprazole [Protonix] 40 mg PO BID
03/26/25 11:00
DC Protocol for Telemetry ONCE
Abnormal Lab Results
03/23/25
16:27
WBC 4.2 L 10^3/uL
(4.8-10.8)
RBC 4.14 L 10^6/uL
(4.20-5.40)
Hgb 11.8 L g/dL
(12.0-16.0)
MCHC 31.1 L g/dL
(33.0-37.0)
RDW 15.4 H %
(11.5-14.5)
MPV 10.9 H fL
(7.4-10.4)
Absolute Lymphs (auto) 0.9 L 10^3/uL
(1.2-3.4)
Monocytes % 14.9 H %
(1.7-9.3)
BUN 27 H mg/dl
(7-17)
Total Bilirubin 1.7 H mg/dl
(0.2-1.3)
Alkaline Phosphatase 134 H U/L
(38-126)
03/23/25 16:27
03/23/25 16:27
Vital Signs
Initial and Last Documented VS:
Initial Vital Signs
Temp Pulse Resp BP Pulse Ox
97.8 F 55 22 107/65 99
03/23/25 13:44 03/23/25 13:44 03/23/25 13:44 03/23/25 13:44 03/23/25 13:44
Last Documented Vital Signs
Temp Pulse Resp BP Pulse Ox
97.8 F 64 20 171/60 94
03/23/25 20:43 03/23/25 21:13 03/23/25 20:43 03/23/25 21:13 03/23/25 20:43
<Miri Ocampo NP - Last Filed: 03/23/25 22:34>
*Radiology
Radiology exam reviewed: radiology read reviewed
*Pulse Oximetry
SaO2: 99
Oxygen Mode of Delivery: Room air
Patient hypoxic: no
*Critical Care Note
Total Time (30-74mins, 75-104mins- exclusive of procedures): Not Applicable
<Miri Ocampo NP - Last Filed: 03/23/25 22:34>
Update Note
Update Note:
Patient to the emergency department with complaint of worsening GEORGE, BLE edema, 11 pound weight gain despite titration of Lasix. Sent to the emergency department by cardiology. On exam she remains awake and alert. Vital signs stable she is
afebrile. Lungs with decreased breath sounds on the right. Pulse ox 96% at rest. Chest x-ray confirms right pleural effusion, no evidence for CHF.. Labs evaluated, stable. BNP 900s. EKG NSR. Case discussed with Dr. TIM, will admit to the
hospitalist for worsening GEORGE, right pleural effusion.
ED Attending Note
<Miri Ocampo NP - Last Filed: 03/23/25 22:34>
-
Portions of this chart may have been created with voice recognition software.� Occasional wrong word or��sound alike� substitutions may have occurred due to the inherent limitations of voice recognition software.
<Franco Tim MD - Last Filed: 03/23/25 19:20>
ED Attending Note
Patient seen and examined by attending physician: Yes
I performed the substantive portion of visit, reviewed & personally made and approve the management plan that is documented in note by myself or MARY.: Yes
ED Attending Note:
Patient is a 69-year-old woman presenting to the emergency department from cardiology with concerns for heart failure exacerbation. Patient been having shortness of breath for the past few weeks. She is on Lasix and has not noticed any
improvement. She does note shortness of breath. No chest pain. During my evaluation patient is resting comfortably. She does have decreased breath sounds on the right. Otherwise exam is reassuring. Concern for heart failure exacerbation versus
pneumonia versus pleural effusion. Chest x-ray per my interpretation with right-sided pleural effusion. We did discuss with cardiology who recommended admission for diuresis.
Discharge Plan
Departure
Patient Disposition: Admit
Date of Disposition: 03/23/25
Time of Disposition: 17:42
Presentation/result/management discussed w/ accepting MD/DO: Hospitalist
Condition: Fair
Covid-19: Not Applicable
Discharge Problem:
GEORGE (dyspnea on exertion), Pleural effusion
Interventions
Interventions:
*Risk Screen - Suicide Last Done: 03/23/25 13:44
*General Assessment Last Done: 03/23/25 16:59
*Neglect/Abuse Screening Last Done: 03/23/25 13:44
*ED- Fall Risk Assessment Last Done: 03/23/25 16:59
*ED COVID-19 Vaccine History Last Done: 03/23/25 16:59
*ED Influenza Vaccine History Last Done: 03/23/25 16:59
*Nursing Disposition Last Done: 03/23/25 20:31
ED- Cardiac Assessment Last Done: 03/23/25 19:07
ED- Pulmonary Assessment Last Done: 03/23/25 19:06
Discharge Date and Time
Discharge Date/Time: 03/23/25 20:31
[2025-03-23 16:44] LABS: Hematocrit 38.0 % (37.0-47.0); Hemoglobin 11.8 g/dL (12.0-16.0); Mean Corp Hgb Conc. 31.1 g/dL (33.0-37.0); Mean Corpuscular Volume 91.8 fL (81.0-99.0); Nucleated Red Blood Cells % 0 %; Platelet Count 148 10^3/uL (130-400); Red Cell Dist. Width 15.4 % (11.5-14.5)
[2025-03-23 17:02] LABS: ALT (SGPT) 21 U/L (0-35); AST (SGOT) 31 U/L (14-36); Albumin 4.3 g/dl (3.5-5.0); Alkaline Phosphatase 134 U/L (38-126); Blood Urea Nitrogen 27 mg/dl (7-17); Calcium 9.1 mg/dl (8.4-10.2); Carbon Dioxide 29 mmol/L (22-30); Chloride 103 mmol/L (98-107); Glucose 96 mg/dl (70-99); Potassium 3.6 mmol/L (3.5-5.1); Sodium 142 mmol/L (135-145); Total Protein 7.5 g/dl (6.3-8.2); eGFR > 60.00
[2025-03-23 17:10] LABS: Troponin I < 0.012 ng/ml
--- NOTE | 2025-03-23 18:27 | HPS.HSE ---
Family Physician
-
Family Physician: Amina Connelly
Chief Complaint
-
shortness of breath
History of Present Illness
Patient is a 69-year-old female with past medical history significant for chronic HFpEF, paroxysmal atrial fibrillation, essential hypertension, hyperlipidemia, diabetes mellitus, insulin-dependent, pulmonary hypertension, obstructive sleep apnea
and GERD who presented to [facility] ED for evaluation increased shortness of breath. Patient reports she has been having increased shortness of breath with weight gain over the past month. She reports 11 pound gain in approximately 4 weeks. She has been
in contact with cardiology who has titrated furosemide without effectiveness. She was seen in cardiology office today and referred to ED for evaluation. Patient denies any recent illness, fever, chills, cough, chest pain, nausea, vomiting, diarrhea
or urinary symptoms.
Medical History
Past Medical History
Past Medical History: Reports Other
Additional Past Medical History:
Chronic HFpEF
Paroxysmal Atrial Fibrillation
Essential Hypertension
Hyperlipidemia
Diabetes Mellitus, Insulin-Dependent
Pulmonary Hypertension
Obstructive Sleep Apnea
GERD
Depression
Past Surgical History: Reports Other
Additional Past Surgical History:
Right Rotator Cuff Repair
Appendectomy
Discectomy
Tubal Ligation
Tonsils and Adenoids
Cardiac Ablation
Social History
Tobacco: Former Smoker
Alcohol: Occasional
Drug: None
Personal:
Living: With Family
Employment: Retired
Family History
Family History: Hypertension
Allergies / Home Medications
Allergies reflects when Allergies were last updated in [employer].
Home Medications with original date entered in [employer]
Allergy/Medication List:
Allergies
Allergy/AdvReac Type Severity Reaction Status Date / Time
adhesive (Adhesive) Allergy Rash/SKIN Verified 12/11/23 12:42
RED
crisaborole (From Eucrisa) Allergy Rash Verified 12/11/23 12:42
sulfamethoxazole (From Allergy GI upset Verified 12/11/23 12:42
Bactrim)
trimethoprim (From Bactrim) Allergy GI upset Verified 12/11/23 12:42
Home Medications
metoprolol tartrate 25 mg tablet 50 mg PO BID Blood pressure 01/10/14
Patient Own Insulin Pump 0 unit SC USEASDIRECTD Diabetes 08/05/23
losartan 50 mg tablet 50 mg PO BID Blood pressure #60 tabs 08/11/23
pantoprazole 40 mg tablet,delayed release 40 mg PO BID Gastrointestinal Issue 12/11/23
acetaminophen 500 mg tablet (Tylenol Extra Strength) 1,000 mg (2 x 500 mg) PO TIDPRN PRN mild pain or fever #60 tabs 12/15/23
Held on 07/15/24. Instructions: Resume on 07/22/24. until outpt LFT result
nitroglycerin 0.4 mg sublingual tablet 0.4 mg sublingual [id number] PRN Chest pain #30 tabs 12/15/23
apixaban 5 mg tablet (Eliquis) 5 mg PO BID 02/03/25
fluoxetine 20 mg tablet 20 mg PO DAILY 03/23/25
furosemide 80 mg tablet 80 mg PO SUMOWETHFRSA Fluid retention/Swelling 03/23/25
furosemide 80 mg tablet 120 mg PO TU 03/23/25
Review of Systems
-
History Source: Patient
Constitutional: Reports Weight Gain (11 pounds in approximately 4 weeks); Denies Fever or Chills
EENT: Denies Sore Throat
Respiratory: Reports Trouble Breathing (dyspnea); Denies Cough or Hemoptysis
Cardiac: Denies Chest Pain, Diaphoresis, Palpitations or Syncope
Abdomen/GI: Denies Abdominal Pain, Nausea, Vomiting or Diarrhea
: Denies Dysuria, Frequency or Urgency
Musculoskeletal: Denies Joint Pain or Joint Swelling
Skin: Denies Rash
Neurological: Denies Dizzy, Headache, Weakness or Numbness
Endocrine: Denies Polyuria or Polydipsia
Hematologic/Lymphatic: Denies Bleeding
Physical Exam
Vital Signs
Vital Signs
Temp Pulse Resp BP Pulse Ox
97.8 F 56 20 176/81 97
03/23/25 13:44 03/23/25 16:45 03/23/25 16:45 03/23/25 15:50 03/23/25 16:45
Physical Exam
General: Well Developed, Well Nourished, Comfortable, Conversant and Obese
HEENT: NormoCephalic, Moist mucous membranes, PERRLA, Ears Appear Normal and Hearing Impaired
Respiratory: Clear, Non Labored Respirations, Decreased Breath Sounds (right side ) and Other (dyspnea with conversation )
Cardiac: S1/S2, Regular Rhythm and Peripheral Edema (mild ); No Murmur
GI: Soft, Non Tender, Non Distended and Normal Bowel Sounds
Musculoskeletal: No Clubbing and No Cyanosis
Skin: Warm and IV/Catheter Site
Neuro: Awake and AO x 3
Psych: Calm and Intact Judgment/Insight
Laboratory Results
-
03/23/25 16:27
03/23/25 16:27
Laboratory Results
Total Bilirubin 1.7 mg/dl (0.2-1.3) H 03/23/25 16:27
AST 31 U/L (14-36) 03/23/25 16:27
ALT 21 U/L (0-35) 03/23/25 16:27
Alkaline Phosphatase 134 U/L (38-126) H 03/23/25 16:27
Troponin I < 0.012 ng/ml 03/23/25 16:27
Data Reviewed
-
Diagnostic Radiology: Report Reviewed by me (CXR: 1. Moderate right pleural effusion, increased in size compared to prior chest x-ray. 2. Right lower lobe airspace disease may also be present.)
Medical Tests (Nuc Med, Echo, EKG etc): Report Reviewed by me (EKG: NORMAL SINUS RHYTHM LOW VOLTAGE QRS INCOMPLETE RIGHT BUNDLE BRANCH BLOCK SEPTAL INFARCT , AGE UNDETERMINED)
Lab Data: Labs Reviewed by me (pBNP 987)
Impression/Plan
-
IMPRESSION/PLAN:
#dyspnea with minimal exertion, 11 pound weight gain in approximately 4 weeks 2/2 acute on chronic HFpEF vs. infectious process vs. plueral effusion
#right pleural effusion
pBNP 987
EKG: NORMAL SINUS RHYTHM
LOW VOLTAGE QRS
INCOMPLETE RIGHT BUNDLE BRANCH BLOCK
SEPTAL INFARCT , AGE UNDETERMINED
CXR: 1. Moderate right pleural effusion, increased in size compared to prior chest x-ray.
2. Right lower lobe airspace disease may also be present.
- Admit to telemetry
- Consult IR for potential thoracentesis
- cytology orders placed
- IV furosemide 40mg BID
- supportive care
#Chronic HFpEF
- Consult cardiology
- daily weights
- I & Os
- hold PO furosemide
- IV furosemide 40mg BID
#Paroxysmal Atrial Fibrillation
- continue Eliquis and metoprolol
#Essential Hypertension
- continue losartan
#Diabetes Mellitus, Insulin-Dependent
patient uses own pump
- continue insulin pump
#GERD
- continue pantoprazole
#Obstructive Sleep Apnea
- continue CPAP
#depression
- continue fluoxetine
#Hyperlipidemia
#Pulmonary Hypertension
Code status: full code
DVT prophylaxis: Eliquis
[2025-03-23] MEDS: LASIX 40 MG IV (19:54)
--- NOTE | 2025-03-23 20:45 | PTCARENOTE ---
Pt arrived to [facility] from ED, AAOx3, no complaints of pain. BP 171/60, HR 64; evening BP meds provided to pt. Pt oriented to room, call vickers in reach. Pt using own insulin pump; order given by COLLECTIONS OFFICER and insulin pump sheet provided to pt.
[2025-03-23] MEDS: ELIQUIS 5 MG PO (21:13)
[2025-03-23] MEDS: LOPRESSOR 50 MG PO (21:13)
[2025-03-23] MEDS: COZAAR 50 MG PO (21:13)
[2025-03-23 22:03] LABS: Glucose - Point of Care 173 mg/dl (70-99)
[2025-03-24] VITALS (7 sets, daily range): BP systolic 110–172; BP diastolic 47–83; PULSE 56; O2SAT 97
[2025-03-24 08:09] LABS: Glucose - Point of Care 77 mg/dl (70-99)
[2025-03-24] MEDS: COZAAR 50 MG PO ×2 (08:15→20:25)
[2025-03-24] MEDS: PROTONIX 40 MG PO ×2 (08:15→20:25)
[2025-03-24] MEDS: PROZAC 20 MG PO (08:15)
[2025-03-24] MEDS: LASIX 40 MG IV (08:16)
[2025-03-24] MEDS: ELIQUIS 5 MG PO ×2 (08:16→20:26)
[2025-03-24] MEDS: LOPRESSOR 50 MG PO ×2 (08:17→20:25)
--- NOTE | 2025-03-24 08:20 | W.PN.CARDCBS ---
Addendum entered and electronically signed by Diego Fishman MD 03/24/25 10:11:
I saw and examined the patient.
The Coat Room Attendant's note was reviewed and I agree with the note.
Comment: Briefly, 69-year-old woman past medical history of heart failure with preserved ejection fraction, severe tricuspid regurgitation and persistent atrial fibrillation on Eliquis who presents with worsening dyspnea concerning for acute
decompensated heart failure. Of note chest x-ray shows right pleural effusion which is a new finding for her compared to CT from 07/2024.
Volume assessment is challenging due to body habitus
Her weight is higher here than prior admission
Suspect she is volume overloaded despite proBNP of only 987
Agree with increasing Lasix to 80 mg twice daily
Follow renal function and electrolytes as well as daily weights
Check transthoracic echocardiogram
Tentative plan for right thoracentesis
History of A-fib but currently in sinus rhythm
Would continue Eliquis for risk reduction of cardiac stroke
Rest per Delphine Coleman
Original Note:
Today's Communication / Plan
-
Increased IV Lasix to 80 mg twice daily
Check echo
For right thoracentesis
Impression / Plan
-
Please refer to office note dated 03/23/25 to be used as consult note
Primary Circuits Engineer: Dr. Boles
Assessment:
GEORGE
Mod R pleural effusion
Suspected acute on chronic HFpEF
PAF
s/p ablation 2013, 2023
s/p CV 02/03/25
Chronic OAC with eliquis
Severe TR by VICTOR HUGO 01/2025
PVCs
Mild noncritical CAD by cath 2023
IDDM
CKD 3A
HTN
GERD
Obesity
IAN
VICTOR HUGO 02/03/25: EF 60-65%, severe TR, dilated RA and RV, no thrombus of MIKALA
Plan:
- Patient presented to office yesterday with GEORGE, orthopnea, and 11 pound weight gain. Referred to ER for admission and diuresis.
- proBNP 987 but never significantly elevated on review of prior admissions. Was placed on IV Lasix 40 mg twice daily, however as an outpatient is on regimen of 80 mg p.o. daily with 120 mg on Tuesdays. Reportedly for the last 3 days she has been
taking p.o. Lasix 80 mg twice daily without significant response. Will increase Lasix dosing to 80 mg IV twice daily. patient reports a dry weight of 216 pounds
- Creatinine pending this morning, follow with diuresis
- IR consult for R thoracentesis given R pleural effusion by CXR
- repeat echo, last from 2023 with preserved EF and severe TR
- on review of tele overnight, has maintained SB with 1 very brief run of AT vs AF. continue lopressor, eliquis. she is scheduled for upcoming office visit with EP to discuss repeat ablation vs AAD therapy options.
- trop negative
Progress Note - Circuits Engineer
Subjective
Date of Service: March 24, 2025
Patient reports without significant response to IV Lasix last evening. No chest pain
Objective
Labs:
Labs
Hgb 11.8 g/dL (12.0-16.0) L 03/23/25 16:27
Hct 38.0 % (37.0-47.0) 03/23/25 16:27
Plt Count 148 10^3/uL (130-400) 03/23/25 16:27
Sodium 142 mmol/L (135-145) 03/23/25 16:27
Potassium 3.6 mmol/L (3.5-5.1) 03/23/25 16:27
BUN 27 mg/dl (7-17) H 03/23/25 16:27
Creatinine 0.9 mg/dL (0.6-1.0) 03/23/25 16:27
Glucose 96 mg/dl (70-99) 03/23/25 16:27
Troponins
03/23/25
16:27
Troponin I < 0.012
Vital Signs and I&O:
Vital Signs
Temp Pulse Resp BP Pulse Ox
98.2 F 56 16 145/83 96
03/24/25 03:05 03/24/25 03:05 03/24/25 03:05 03/24/25 03:05 03/24/25 03:05
Vital Signs
Temp Pulse Resp BP Pulse Ox
98.2 F 56 16 145/83 96
03/24/25 03:05 03/24/25 03:05 03/24/25 03:05 03/24/25 03:05 03/24/25 03:05
Intake & Output
03/22/25 03/23/25 03/24/25 03/25/25
07:59 07:59 07:59 07:59
Intake Total 240 / 240
Balance 240 / 240
Physical Exam
Physical Exam
GEN: No distress, awake, alert, oriented x3. Obese
HEENT: supple, anicteric, mmm, EOMI
LUNGS: Decreased RLB, no wheezes
CV: Reg, S1/S2, 1/6 murmur
ABD: soft, BS+, NT/ND
EXT: No cyanosis, clubbing. Trace edema of bilateral lower extremity
NEURO: Gross non-focal
SKIN: Warm, pink, dry. No rash
[2025-03-24] MEDS: PATIENT'S OWN INSULIN PUMP SC ×2 (08:31→22:00)
--- NOTE | 2025-03-24 08:48 | W.PN.HOSP.TC ---
Addendum entered and electronically signed by Ty Yadav MD 03/24/25 21:45:
Attending Addendum-
I saw and evaluated the patient. I reviewed the resident�s note and agree with findings and plan as documented in the resident�s note. Sub: feels much less SOB pos thoracentesis. Refused labs this am. Denies fevers chills. 'I know this sis something
bad' No recent weight loss. Full 12 point ROS reviewed and negative except as documented Exam: Vitals reviewed in chart GEN-NAD heart RRR NO MRG lungs decreased BS RLL abd soft NT ND pos BS LE B/L LE lymphedema
Plan:
# SOB/Dyspnea secondary to right pleural effusion
- IR thoracentesis- 03/24- 650mls kofi fluid
- fluid sent for analysis
- patient refusing labs this AM
- supportive care
# AE HFpEF
- pBNP-987
- repeat echo per cards-previous 01/2025%
- appreciate cardiology input
- daily weights
- I & Os
- increase IV furosemide
#Paroxysmal Atrial Fibrillation
- continue Eliquis and metoprolol
#Essential Hypertension
- continue losartan
#Diabetes Mellitus, Insulin-Dependent
patient uses own pump
- continue insulin pump, c/s DM PROCEDURES NURSE
#GERD
- continue pantoprazole
#Obstructive Sleep Apnea
- continue CPAP
#Depression
- continue fluoxetine
Code status: full code
DVT prophylaxis: Eliquis
Dispo- hopeful DC in am
ACP
Patient consented to discuss, was alone, time spent explanation of advance directives, changes in health status, patient�s health care wishes if the patient becomes unable to make health decisions, goals of care, code status, and prognosis- 16
minutes
Time spent coordinating care, review of plan of care with resident, personally reviewed previous records in EMR, med rec, labs, radiology, d/w nursing, total time documented is exclusive of any additional time listed that was spent in advance care
planning discussion -�51 minutes
Original Note:
Today's Communication/Plan
-
IR thoracentesis of moderate right pleural effusion. 650 mL clear kofi fluid removed.
Pleural fluid/serum protein ratio 0.37. Less than 0.5, which is consistent with a transient effusion. Likely pulmonary edema due to HFpEF.
IV Lasix increased from 40 to 80 mg. Cardiology suspecting fluid overload.
Considering starting SGLT2 inhibitor for patient's chronic HFpEF, given that she has been hypertensive and has DM.
Assessment / Plan
Assessment / Plan
Impression
Ms. Amina Dawson is a 69-year-old female with PMH notable for chronic HFpEF, PAF, HTN, pulm HTN, HLD, IDDM, IAN and GERD who presented from cardiology clinic for increased SOB and 11 pound weight gain in 4 weeks. Cardiology has titrated furosemide
without effectiveness. Patient denied recent illness, F/C, cough, CP, N/V/D, or urinary symptoms.
Plan
#SOB 2/2 Right pleural effusion
CXR: 1. Moderate right pleural effusion, increased in size compared to prior chest x-ray. 2. Right lower lobe airspace disease may also be present.
Thoracentesis: 650 mL clear kofi fluid removed
Pleural fluid: Total protein 2.8, LDH 133, WBC 1187, 10% PMNs, glucose 124, pH 7.49
Serum: Protein 7.5, LDH not obtained
� Pleural/serum protein ratio: 0.37. Less than 0.5, so transient effusion. Likely pulmonary edema due to HFpEF.
� Pleural fluid LDH upper limit of normal not available
#11 pound weight gain over 1 month 2/2 acute on chronic HFpEF
pBNP 987. 834 in 11/2023.
EKG: NORMAL SINUS RHYTHM. INCOMPLETE RIGHT BUNDLE BRANCH BLOCK. SEPTAL INFARCT , AGE UNDETERMINED
- IV furosemide 40mg BID
#Dyspnea with minimal exertion
� Physical therapy: Home with assistance. Patient understand outpatient physical therapy
� Lives at home with 14 stairs. Difficult using the stairs but can manage. She lives with her
#Chronic HFpEF
- daily weights: 100 kg on admission. Lowest weight 82-94 kg in 11/2023
- I & Os
- hold PO furosemide.
Consult cardiology: Patient has been taking Lasix 80 mg p.o. twice daily for the last 3 days without significant response. Suspect volume overload.
� Increased furosemide to 80 mg IV BID
� Echo: EF 55 to 60%, normal LV size, severe tricuspid regurg with PA pressure 25 mmHg, dilated right ventricle with normal systolic function similar to [facility] HUGO 01/2025
- Considering starting SGLT2 inhibitor for patient's chronic HFpEF, given that she has been hypertensive and has DM.
#Paroxysmal Atrial Fibrillation
- continue Eliquis 5 mg p.o. twice daily and metoprolol 50 mg p.o. twice daily
#Essential Hypertension
- continue losartan 50 mg p.o. twice daily
#Diabetes Mellitus, Insulin-Dependent
- continue patient's home insulin pump
DM management following
#GERD
- continue pantoprazole
#Obstructive Sleep Apnea
- continue CPAP
#Depression
- continue fluoxetine 20 mg p.o. daily
#Hyperlipidemia
#Pulmonary Hypertension
Code status: full code
DVT prophylaxis: Eliquis
Anticipated Discharge: 24 - 48 hours
Subjective/Interval History
-
Date of Service: March 24, 2025
No acute events overnight. Patient reported that she was cold in this room, so she wrapped herself blankets. She denied a history of thyroid conditions. Patient states that over the last month she has grown more short of breath with exertion,
which makes her feel fatigued overall. She wants to feel better.
The patient refused a repeat attempt to draw morning labs. Since her labs yesterday were unremarkable, further attempts to draw morning labs were not pursued.
Objective Data
-
Labs:
Laboratory Results
03/24/25
06:00
WBC Pending
Hgb Pending
Hct Pending
Plt Count Pending
Sodium Pending
Potassium Pending
Chloride Pending
Carbon Dioxide Pending
BUN Pending
Creatinine Pending
Glucose Pending
Calcium Pending
Vital Signs:
Vital Signs
Temp Pulse Resp BP Pulse Ox
98.2 F 56 20 172/75 97
03/24/25 07:00 03/24/25 07:00 03/24/25 07:00 03/24/25 07:00 03/24/25 07:00
I&O
03/23/25 03/24/25 03/25/25
06:59 06:59 06:59
Intake Total 240 / 240
Balance 240 / 240
Weight - last 4 days
03/22/25 03/23/25 03/24/25 03/25/25
06:59 06:59 06:59 06:59
Actual Weight 99.932 kg
Review of Systems
-
History Source: Patient
All other systems: Reviewed and negative
Physical Exam
-
General: Well Developed, Well Nourished, No Apparent Distress, Comfortable, Chills and Conversant
HEENT: Normocephalic, Atraumatic, Anicteric, Nose Appears Normal and Ears Appear Normal
Respiratory: Decreased Breath Sounds (And inferior third of right posterior lung field)
Cardiac: Regular Rhythm and S1/S2
GI: Soft, Nontender, Nondistended and Normal Bowel Sounds
Musculoskeletal: No Clubbing and No Cyanosis
Skin: Warm and Dry
Neuro: Awake and Alert
Psych: Calm
--- NOTE | 2025-03-24 11:30 | PN.DE.MGMTRT ---
Insulin Management
- -
03/24/2025 Diabetes Management Consult
Patient admitted 03/23 with SOB, R pleural effusion. PMH diabetes, chronic HFpEF, paroxysmal AFib, HLD, Pulmonary HTN, IAN, stage 3 chronic CKD, GERD, HTN. Prior to admission patient using an tslim x2 insulin pump with control IQ and DexCom G7 and
novolog insulin. A1C 8.1% from 11/2023 Ordered updated A1C, CR .9, eGFR >60.
Patient is awake alert and oriented able to discuss diabetes management and insulin pump. Sees Dr. Mann, endocrine, at [facility]. Had thoracentesis this AM for 650 ml clear kofi fluid.
Current pump settings:
Basal CHO ratio Sensitivity Target
12am 1.65 10 30 110
3am 1.35 10 30 110
5am 1.05 5 30 110
6am 1.75 6 30 110
6:30am 1.75 5.5 30 110 Basal rate changed due to hypoglycemia to 1.6
8:30am 1.6 4.5 30 110
12pm 1.6 4 30 110
6pm 1.6 4 30 110
8pm 1.7 4 30 110
10pm 1.4 4 30 110
24 hour basal total 37.525
She is currently using Novolog insulin with [employer] XC infusion set. She has the insulin pump worksheet at the bedside and is entering doses carbs, etc.
Basal rate changed at 6:30AM due to hypoglycemia from 1.75 to 1.6. Will make no other changes to pump
Discussed with nurse.
Diabetes History
- -
Type of Diabetes: 1
Pre-Admission Diabetes Regimen
03/23/25
16:27
Creatinine 0.9
Lab Results
Hemoglobin A1c Cancelled 03/24/25 07:19
Insulin Pump Settings
IP Diabetes Regimen
03/23/25 03/23/25 03/24/25
16:27 22:02 08:02
Glucose 96
POC Glucose 173 H 77
Patient Education
[2025-03-24] MEDS: PATIENT'S OWN INSULIN PUMP 0.3 UNITS SC (12:38)
[2025-03-24 12:39] LABS: Glucose - Point of Care 165 mg/dl (70-99)
--- NOTE | 2025-03-24 13:16 | CM ---
CM reviewed chart, patient seen bedside, initial assessment completed.
Patient is a 69-year-old female with past medical history significant for chronic HFpEF, paroxysmal atrial fibrillation, essential hypertension, hyperlipidemia, diabetes mellitus, insulin-dependent, pulmonary hypertension, obstructive sleep apnea
and GERD who presented to [facility] ED for evaluation increased shortness of breath.
Patient resides with her in a multiple story home, 14 steps to enter.
Patient denies use of DME, VN/SNF hx.
PCP Amina Connelly, Pharmacy [facility], confirms prescription coverage.
Patient denies insecurities at home.
CM will continue to follow for all d/c planning needs.
Plan; home no needs
[2025-03-24 13:23] LABS: Body Fluid Second Tech CMB
[2025-03-24 14:00] LABS: Glycohemoglobin (HgbA1c) 7.1 % (4.0-5.9)
[2025-03-24] MEDS: LASIX 80 MG IV (15:35)
[2025-03-24] MEDS: ROBITUSSIN DM 5 ML PO ×2 (16:38→21:37)
[2025-03-24 17:18] LABS: Glucose - Point of Care 179 mg/dl (70-99)
[2025-03-24] MEDS: PATIENT'S OWN INSULIN PUMP 5.11 UNITS SC (17:19)
[2025-03-24 21:15] LABS: Glucose - Point of Care 211 mg/dl (70-99)
[2025-03-25] VITALS (9 sets, daily range): BP systolic 93–158; BP diastolic 48–74; BMI 35.4
[2025-03-25] MEDS: ROBITUSSIN DM 5 ML PO (03:17)
[2025-03-25 06:49] LABS: Hematocrit 36.4 % (37.0-47.0); Hemoglobin 11.4 g/dL (12.0-16.0); Mean Corp Hgb Conc. 31.3 g/dL (33.0-37.0); Mean Corpuscular Volume 89.7 fL (81.0-99.0); Platelet Count 135 10^3/uL (130-400); Red Cell Dist. Width 15.2 % (11.5-14.5)
[2025-03-25 07:23] LABS: ALT (SGPT) 17 U/L (0-35); AST (SGOT) 23 U/L (14-36); Albumin 3.5 g/dl (3.5-5.0); Alkaline Phosphatase 135 U/L (38-126); Blood Urea Nitrogen 26 mg/dl (7-17); Calcium 8.4 mg/dl (8.4-10.2); Carbon Dioxide 29 mmol/L (22-30); Chloride 102 mmol/L (98-107); Estimated Creatinine Clearance 64 ml/min; Glucose 96 mg/dl (70-99); Potassium 3.7 mmol/L (3.5-5.1); Sodium 139 mmol/L (135-145); Total Protein 6.5 g/dl (6.3-8.2); eGFR > 60.00
[2025-03-25 07:50] LABS: Glucose - Point of Care 100 mg/dl (70-99)
[2025-03-25] MEDS: PATIENT'S OWN INSULIN PUMP SC ×3 (08:24→22:25)
--- NOTE | 2025-03-25 08:27 | PN.DE.MGMTRT ---
Insulin Management
- -
03/24/2025 Diabetes Management Consult
Patient admitted 03/23 with SOB, R pleural effusion. PMH diabetes, chronic HFpEF, paroxysmal AFib, HLD, Pulmonary HTN, IAN, stage 3 chronic CKD, GERD, HTN. Prior to admission patient using an tslim x2 insulin pump with control IQ and DexCom G7 and
novolog insulin. A1C 8.1% from 11/2023 current A1C 7.1%, CR 1, eGFR >60.
Patient is awake alert and oriented able to discuss diabetes management and insulin pump. Just returned from xray. Sees Dr. Mann, endocrine, at [facility].
03/24 Had thoracentesis this AM for 650 ml clear kofi fluid. Glucose range 77fasting to 211 HS.
03/25 Insulin pump basal rate decreased yesterday, 6:30AM rate changed due to fasting hypoglycemia from 1.75 to 1.6. Will make no other changes to pump Fasting glucose improved 100 this AM.
Current pump settings:
Basal CHO ratio Sensitivity Target
12am 1.5 10 30 110 Basal rate changed due to patient reported hypoglycemia 03/25
3am 1.35 10 30 110
5am 1.05 5 30 110
6am 1.75 6 30 110
6:30am 1.75 5.5 30 110 Basal rate changed due to patient reported hypoglycemia to 1.6 03/24
8:30am 1.6 4.5 30 110
12pm 1.6 4 30 110
6pm 1.6 4 30 110
8pm 1.7 4 30 110
10pm 1.4 4 30 110
24 hour basal total 37.07
She is currently using Novolog insulin with [employer] XC infusion set. She has the insulin pump worksheet at the bedside and is entering doses carbs, etc.
Discussed with nurse.
Diabetes History
- -
Type of Diabetes: 1
Pre-Admission Diabetes Regimen
03/24/25 03/25/25
17:11 06:20
Creatinine Cancelled 1.0
Lab Results
Hemoglobin A1c Cancelled 03/24/25 07:19
Insulin Pump Settings
IP Diabetes Regimen
03/24/25 03/24/25 03/24/25
12:37 17:11 17:17
Glucose Cancelled
POC Glucose 165 H 179 H
03/24/25 03/25/25 03/25/25
21:04 06:20 07:48
Glucose 96
POC Glucose 211 H 100 H
Patient Education
[2025-03-25] MEDS: LASIX 80 MG IV ×2 (08:28→15:42)
[2025-03-25] MEDS: PROTONIX 40 MG PO ×2 (08:29→20:18)
[2025-03-25] MEDS: PROZAC 20 MG PO (08:30)
[2025-03-25] MEDS: COZAAR 50 MG PO ×2 (08:30→20:18)
[2025-03-25] MEDS: LOPRESSOR 50 MG PO (08:30)
[2025-03-25] MEDS: ELIQUIS 5 MG PO ×2 (08:30→20:18)
--- NOTE | 2025-03-25 08:31 | W.PN.HOSP.TC ---
Addendum entered and electronically signed by Ty Yadav MD 03/25/25 20:19:
Attending Addendum-
I saw and evaluated the patient. I reviewed the resident�s note and agree with findings and plan as documented in the resident�s note. Sub: went into afib overnight, feels more sob today and complains of abd distention and increased urination. went
into afib overnight. Denies CP palps fevers chills. Denies fevers chills. No recent weight loss. Full 12 point ROS reviewed and negative except as documented Exam: Vitals reviewed in chart GEN-NAD heart irreg irreg no MRG lungs decreased BS RLL abd
soft NT slightly distended pos BS LE B/L LE lymphedema
Plan:
# SOB/Dyspnea- multifactorial due to a fib, right pleural effusion, and CHF
- IR thoracentesis- 03/24- 650mls kofi fluid
- fluid sent for analysis-exudate
- await cytology
- supportive care
# AE HFpEF
- pBNP-987
- repeat echo 03/24-Normal left ventricular size with mild concentric left ventricular hypertrophy, preserved LV function with EF 55 to 60%.
- appreciate cardiology input
- daily weights
- I & Os
- cont furosemide 80mg IV BID
#Paroxysmal Atrial Fibrillation
- went back into a fib overnight
- appreciate cards input- for Tikosyn induction- transfer to IVU for close monitoring for arrhythmia
-continue Eliquis and metoprolol
#Essential Hypertension
- continue losartan
#Diabetes Mellitus, Insulin-Dependent
- patient uses own pump
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
#GERD
- continue pantoprazole
#Obstructive Sleep Apnea
- continue CPAP
#Depression
- continue fluoxetine
Code status: full code
DVT prophylaxis: Eliquis
Dispo-eventual dc home after tikosyn induction
Time spent coordinating care, review of plan of care with resident, personally reviewed records in EMR, med rec, consults, notes, labs, radiology, d/w nursing and cards� 52 mins
Original Note:
Today's Communication/Plan
-
Patient reported increased shortness of breath, worsening cough, and abdominal fullness. She was found to be in A-fib. Her symptoms are likely due to A-fib, which may be triggering a HFpEF exacerbation. Cardiology transferred her to the IVU and
administered Tikosyn.
Be wary of QT-prolonging drugs, as patient started Tikosyn.
Assessment / Plan
Assessment / Plan
Impression
Ms. Amina Dawson is a 69-year-old female with PMH notable for chronic HFpEF, PAF, HTN, pulm HTN, HLD, IDDM, IAN and GERD who presented from cardiology clinic for increased SOB and 11 pound weight gain in 4 weeks. Cardiology has titrated furosemide
without effectiveness. Patient denied recent illness, F/C, cough, CP, N/V/D, or urinary symptoms.
Thoracentesis 03/24/25 with 650 cc clear kofi fluid. Positive for exudative effusion per 2 Light's criteria (LDH). SOB decreased.
Afib with increased SOB and cough 03/25/25. Transferred to IVU for Tikosyn per cardiology.
Plan
#Paroxysmal Atrial Fibrillation
Sustained A-fib with shortness of breath 03/25/2025.
- Tikosyn in IVU 03/25/25
- continue Eliquis 5 mg p.o. twice daily and metoprolol 50 mg p.o. twice daily
- Avoid QT-prolonging meds
#SOB 2/2 Right pleural effusion�drained
#Cough
CXR: 1. Moderate right pleural effusion, increased in size compared to prior chest x-ray. 2. Right lower lobe airspace disease may also be present.
Thoracentesis: 650 mL clear kofi fluid removed
Pleural fluid: Total protein 2.8, LDH 133, WBC 1187, 10% PMNs, glucose 124, pH 7.49
Serum: Protein 7.5, LDH not obtained
� Pleural/serum protein ratio: 0.37. Less than 0.5, so transient effusion. Likely pulmonary edema due to HFpEF. However either of other 2 lights criteria could be positive for exudative effusion
� Serum LDH pending
#11 pound weight gain over 1 month 2/ acute on chronic HFpEF
pBNP 987. 834 in 11/2023. 183
EKG: NORMAL SINUS RHYTHM. INCOMPLETE RIGHT BUNDLE BRANCH BLOCK. SEPTAL INFARCT , AGE UNDETERMINED
- IV furosemide 80mg BID
#Dyspnea with minimal exertion
� Physical therapy: Home with assistance. Patient understand outpatient physical therapy
� Lives at home with 14 stairs. Difficult using the stairs but can manage. She lives with her
#Chronic HFpEF
- daily weights: 100 kg on admission. Lowest weight 82-94 kg in 11/2023. 99 kg 03/25/2025
- I & Os
- hold PO furosemide.
Consult cardiology: Patient has been taking Lasix 80 mg p.o. twice daily for the last 3 days without significant response. Suspect volume overload.
� Increased furosemide to 80 mg IV BID
� Echo: EF 55 to 60%, normal LV size, severe tricuspid regurg with PA pressure 25 mmHg, dilated right ventricle with normal systolic function similar to [facility] HUGO 01/2025
- Considering starting SGLT2 inhibitor for patient's chronic HFpEF, given that she has been hypertensive and has DM.
#Abd fullness
�MiraLAX
#Essential Hypertension
- continue losartan 50 mg p.o. twice daily
#Diabetes Mellitus, Insulin-Dependent
- continue patient's home insulin pump
DM management following
#GERD
- continue pantoprazole
#Obstructive Sleep Apnea
- continue CPAP
#Depression
- continue fluoxetine 20 mg p.o. daily. Held due to prolonging QT side effect & pt starting Tikosyn
#Hyperlipidemia
#Pulmonary Hypertension
Code status: full code
DVT prophylaxis: Eliquis
Anticipated Discharge: > 48 hours
Subjective/Interval History
-
Date of Service: March 25, 2025
No acute events overnight. Patient reports increased shortness of breath and continued cough this morning. Increase guaifenesin to 10 mL and added benzonatate.
Patient also reports increased abdominal fullness. She endorsed constipation.
Objective Data
-
Labs:
Laboratory Results
03/25/25
06:20
WBC 3.7 L
Hgb 11.4 L
Hct 36.4 L
Plt Count 135
Sodium 139
Potassium 3.7
Chloride 102
Carbon Dioxide 29
BUN 26 H
Creatinine 1.0
Glucose 96
Calcium 8.4
Total Bilirubin 1.2
AST 23
ALT 17
Alkaline Phosphatase 135 H
Vital Signs:
Vital Signs
Temp Pulse Resp BP Pulse Ox
98 F 99 18 141/72 96
03/25/25 07:58 03/25/25 07:58 03/25/25 07:58 03/25/25 07:58 03/25/25 07:58
I&O
03/24/25 03/25/25 03/26/25
06:59 06:59 06:59
Intake Total 240 / 240 240 / 240
Balance 240 / 240 240 / 240
Weight - last 4 days
03/23/25 03/24/25 03/25/25 03/26/25
06:59 06:59 06:59 06:59
Actual Weight 99.932 kg 99.393 kg
Review of Systems
-
History Source: Patient
All other systems: Reviewed and negative
Physical Exam
-
General: Well Developed, Well Nourished and Conversant
HEENT: Normocephalic, Atraumatic, Nose Appears Normal and Ears Appear Normal
Respiratory: Rales, Crackles (Soft, fine crackles at right posterior lung) and Chest Tubes (Cough)
Cardiac: Irregular Rhythm and Tachycardic
GI: Soft, Normal Bowel Sounds, Tender (Mild tenderness to palpation in left upper quad) and Distended
Musculoskeletal: No Clubbing and No Cyanosis
Skin: Warm and Dry
Neuro: Awake and Alert
Psych: Calm
[2025-03-25 09:34] LABS: LDH 206 U/L (120-246)
--- NOTE | 2025-03-25 09:37 | W.PN.CARDCBS ---
Addendum entered and electronically signed by Diego Fishman MD 03/25/25 11:31:
I saw and examined the patient.
The Cash Accountant's note was reviewed and I agree with the note.
Comment: Briefly, 69-year-old woman past medical history of heart failure with preserved ejection fraction, severe tricuspid regurgitation and persistent atrial fibrillation on Eliquis who presents with worsening dyspnea concerning for acute
decompensated heart failure. Of note chest x-ray shows right pleural effusion which is a new finding for her compared to CT from 07/2024.
#HFpEF
Continues to report GEORGE and abd distention
Underwent thoracentesis on 03/24/2025. Fluid appears transudative. Suspect this is due to acute heart failure.
Echo with preserved LV function and severe TR, unchanged from prior
Would continue IV Lasix 80 mg twice daily
Follow renal function and electrolytes as well as daily weights
Consider adding SGLT2 and MRA
#AFib
-Initially in NSR, but went into AFib overnight 03/24
-Continue metoprolol for rate control, goal HR <110 bpm
-Plan to start Tikosyn to maintain sinus rhythm
-Continue Eliquis for risk reduction of cardiomebolic stroke
Original Note:
Today's Communication / Plan
-
continue IV lasix
transfer to IVU for initiation of tikosyn for PAF
continue eliquis, lopressor
CM to assess cost to patient of SGLT2 inhibitor
Impression / Plan
-
Please refer to office note dated 03/23/25 to be used as consult note
Primary Turn Machine Operator: Dr. Boles
Assessment:
GEORGE
Mod R pleural effusion
Suspected acute on chronic HFpEF
PAF
s/p ablation 2023
s/p CV 02/03/25
Chronic OAC with eliquis
Severe TR by VICTOR HUGO 01/2025
PVCs
Mild noncritical CAD by cath 2023
IDDM
CKD 3A
HTN
GERD
Obesity
IAN
[facility] HUGO 02/03/25: EF 60-65%, severe TR, dilated RA and RV, no thrombus of MIKALA
ECHO 03/24/25: TDS, EF 55 to 60%, mild concentric LVH, dilated RV, severe TR, PAP 25 mmHg
Plan:
-presented with GEORGE, weight gain
-CXR with R pleural effusion and underwent R thora for 650cc 03/24. serum LDH pending at this time but suspected transudative effusion
-continue IV diuresis with lasix 80mg BID, reports good response thus far. Cr stable. prior to admission was on regimen of 80 mg p.o. daily with 120 mg on Tuesdays. dry weight felt to be 216 pounds.
-Echo with results as above, remains with preserved EF and severe TR, reviewed results with patient 03/25
-went into afib around 2300 last evening on review of tele. would consider transfer to IVU with initiation of tikosyn for antiarrhythmic therapy. continue lopressor, eliquis. she is scheduled for upcoming office visit with EP to discuss repeat
ablation
-will have CM assess cost to patient of tikosyn as well as farxiga.
-d/w hospitalist via TT
Progress Note - Turn Machine Operator
Subjective
Date of Service: March 25, 2025
reports good response to IV lasix overnight
Objective
Labs:
03/25/25 06:20
03/25/25 06:20
Labs
Hgb 11.4 g/dL (12.0-16.0) L 03/25/25 06:20
Hct 36.4 % (37.0-47.0) L 03/25/25 06:20
Plt Count 135 10^3/uL (130-400) 03/25/25 06:20
Sodium 139 mmol/L (135-145) 03/25/25 06:20
Potassium 3.7 mmol/L (3.5-5.1) 03/25/25 06:20
BUN 26 mg/dl (7-17) H 03/25/25 06:20
Creatinine 1.0 mg/dL (0.6-1.0) 03/25/25 06:20
Glucose 96 mg/dl (70-99) 03/25/25 06:20
Troponins
03/23/25
16:27
Troponin I < 0.012
Vital Signs and I&O:
Vital Signs
Temp Pulse Resp BP Pulse Ox
98 F 99 18 141/72 96
03/25/25 07:58 03/25/25 07:58 03/25/25 07:58 03/25/25 07:58 03/25/25 07:58
Vital Signs
Temp Pulse Resp BP Pulse Ox
98 F 99 18 141/72 96
03/25/25 07:58 03/25/25 07:58 03/25/25 07:58 03/25/25 07:58 03/25/25 07:58
Intake & Output
03/23/25 03/24/25 03/25/25 03/26/25
07:59 07:59 07:59 07:59
Intake Total 240 / 240 240 / 240
Balance 240 / 240 240 / 240
Physical Exam
Physical Exam
GEN: No distress, awake, alert, oriented x3. Obese
HEENT: supple, anicteric, mmm, EOMI
LUNGS: CTA B/L, no wheezes
CV: Reg, S1/S2, 1/6 murmur
ABD: soft, BS+, NT/ND
EXT: No cyanosis, clubbing. Trace edema of bilateral lower extremity
NEURO: Gross non-focal
SKIN: Warm, pink, dry. No rash
--- NOTE | 2025-03-25 10:23 | W.CARD.TIKOS ---
Initiate Tikosyn
-
I verify that the patient has not taken any verapamil (Isoptin/Calan), ketoconazole (Nizoral), cimetidine (Tagamet), trimethoprim (Trimpex), trimethoprim/sulfamethoxazole (Bactrim), megesterol (Megace), prochlorperazine (Compazine),
hydrochlorothiazide (HCTZ), dolutegravir (Tivicay) or any Class I or Class III anti-arrhythmic within the last three days
AND
I verify that the patient has not taken amiodarone within the last THREE months, or that the patient's amiodarone plasma concentration is <0.3 mcg/mL.
Creatinine 1.0 mg/dL (0.6-1.0) 03/25/25 06:20
Estimated Creat Clear 64 ml/min 03/25/25 06:20
Does patient have a Ventricular Conduction Abnormality: Yes
I have assessed the baseline QTc interval (using QT for heart rate less than 60 bpm) and deemed the patient is appropriate for Dofetilide therapy. I understand that Tikosyn is contraindicated if the QTc is >440msec (500msec in patients with
ventricular conduction abnormalities).
QTc interval is greater than 440msec without conduction abnormality OR greater than 500msec with a conduction abnormality, but acceptable to proceed per Cardiology attending.
Reason for Administration with Prolonged QTc: Bundle Branch Block
Ordering Physician: Other (Diego Fishman)
[2025-03-25 11:55] LABS: Glucose - Point of Care 159 mg/dl (70-99)
[2025-03-25 13:32] LABS: Magnesium 1.9 mg/dl (1.6-2.3)
--- NOTE | 2025-03-25 14:51 | CM ---
CM reviewed chart, patient for transfer to IVU.
Consult received for cost of Farxiga 10mg daily, Tikosyn 500 mg Q12- per patients pharmacy: Farxiga $140, Tikosyn $32.44 (through patients insurance)- TT to Cardiology.
Plan; home when stable
--- NOTE | 2025-03-25 16:45 | PTCARENOTE ---
Patient arrived to unit in stable condition. Patient sinus dax on tele. Remains on room air. Patient denies any shortness of breath. Patient aware of plan of care. Call vickers within reach.
[2025-03-25] MEDS: TIKOSYN 500 MCG PO (17:21)
[2025-03-25 17:33] LABS: Glucose - Point of Care 251 mg/dl (70-99)
[2025-03-25] MEDS: PATIENT'S OWN INSULIN PUMP 12.01 UNITS SC (17:40)
[2025-03-25] MEDS: LOPRESSOR PO (19:44)
[2025-03-25] MEDS: TESSALON PERLES 100 MG PO (21:00)
[2025-03-25 22:15] LABS: Glucose - Point of Care 83 mg/dl (70-99)
--- NOTE | 2025-03-25 23:15 | PTCARENOTE ---
Received pt at change of shift resting in bed. SB on tele, HR 40's-50's. EKG post Tikosyn dose #1 obtained, QTc 548. Reached out to Dr. Josue Carrasquillo about HR and QTc, instructed RN to hold Lopressor and dose #2 of Tikosyn for tonight. MD also
instructed RN to obtain an EKG and magnesium level in AM. pt updated on plan of care, verbalizes understanding. pt denies any CP or SOB at this time. pt glucose level on own monitor showing glucose of 50, checked with our monitor and showed 83.
Apple juice and a snack given to pt per pt request. pt verbalizes no insulin coverage given for tonight--see MAR. pt wearing own CPAP. Afib booklet provided. Encouraged pt to call RN with any questions/concerns. Call vickers within reach.
[2025-03-26] VITALS (7 sets, daily range): BP systolic 124–159; BP diastolic 48–65; PULSE 53; O2SAT 96; BMI 35.5
[2025-03-26 00:40] LABS: Glucose - Point of Care 109 mg/dl (70-99)
--- NOTE | 2025-03-26 00:40 | PTCARENOTE ---
pt called RN and reports own glucose monitor alarming blood glucose of 79 and dropping. pt denies any symptoms. Obtained glucose reading on our monitor, result of 109. Given juice per pt request, Call vickers within reach.
[2025-03-26 04:31] LABS: Hematocrit 36.8 % (37.0-47.0); Hemoglobin 11.1 g/dL (12.0-16.0); Mean Corp Hgb Conc. 30.2 g/dL (33.0-37.0); Mean Corpuscular Volume 89.8 fL (81.0-99.0); Platelet Count 148 10^3/uL (130-400); Red Cell Dist. Width 15.2 % (11.5-14.5)
[2025-03-26] MEDS: ROBITUSSIN DM 10 ML PO ×3 (04:36→19:56)
[2025-03-26 05:00] LABS: ALT (SGPT) 19 U/L (0-35); AST (SGOT) 30 U/L (14-36); Albumin 3.7 g/dl (3.5-5.0); Alkaline Phosphatase 138 U/L (38-126); Blood Urea Nitrogen 36 mg/dl (7-17); Calcium 8.7 mg/dl (8.4-10.2); Carbon Dioxide 28 mmol/L (22-30); Chloride 99 mmol/L (98-107); Estimated Creatinine Clearance 46 ml/min; Glucose 80 mg/dl (70-99); Magnesium 2.1 mg/dl (1.6-2.3); Potassium 4.0 mmol/L (3.5-5.1); Sodium 133 mmol/L (135-145); Total Protein 6.8 g/dl (6.3-8.2); eGFR 40.98
--- NOTE | 2025-03-26 07:33 | PN.DE.MGMTRT ---
Insulin Management
- -
03/26/2025 Diabetes Management Consult
Patient admitted 03/23 with SOB, R pleural effusion. PMH diabetes, chronic HFpEF, paroxysmal AFib, HLD, Pulmonary HTN, IAN, stage 3 chronic CKD, GERD, HTN. Prior to admission patient using an tslim x2 insulin pump with control IQ and DexCom G7 and
NovoLog insulin. A1C 8.1% from 11/2023 current A1C 7.1%, CR 1, eGFR >60.
Patient is awake alert and oriented able to discuss diabetes management and insulin pump. Sees Dr. Mann, endocrine, at [facility].
03/24 Had thoracentesis in AM for 650 ml clear kofi fluid.
Patient transferred to IVU yesterday for Tikosyn infusion. Cr up to 1.4, eGFR 40.98 today.
03/25 Insulin pump basal rate decreased, 6:30AM rate changed due to fasting hypoglycemia from 1.75 to 1.6. Glucose improved to 100 fasting yesterday.
Patient is currently using NovoLog insulin with [employer] XC infusion set.
Fasting 80 V, 101 POC this AM. Patient states that her CGM had a hypoglycemia alarm over night and that she reduced her basal rate to 1.4 at MN and 1.25 at 3am and her 5am to 1.0. She again noticed that her blood sugar was 65 this morning but when
the Nurse checked it with the hospital meter it was 101.
instructed patient to notify the nurse if her CGM alarm goes off again so the Nurse can perform and POC glucose check to confirm if it's low.
She has the insulin pump worksheet at the bedside and is entering doses carbs, etc.
Will make no changes to pump settings.
Current pump settings:
Basal CHO ratio Sensitivity Target
12am 1.4 10 30 110 Pt changed her Basal rate due to hypoglycemia 03/26
3am 1.25 10 30 110
5am 1.0 5 30 110
6am 1.75 6 30 110
6:30am 1.6 5.5 30 110 Pt changed her Basal rate due to hypoglycemia 03/26
8:30am 1.6 4.5 30 110
12pm 1.6 4 30 110
6pm 1.6 4 30 110
8pm 1.7 4 30 110
10pm 1.4 4 30 110
24 hour basal total 36.55 units (was 37.07 prior to change)
Discussed with nurse. Will cont to follow
Diabetes History
- -
Type of Diabetes: 1
Pre-Admission Diabetes Regimen
03/26/25
04:08
Creatinine 1.4 H
Lab Results
Hemoglobin A1c Cancelled 03/24/25 07:19
Insulin Pump Settings
IP Diabetes Regimen
03/25/25 03/25/25 03/25/25
07:48 11:53 17:32
Glucose
POC Glucose 100 H 159 H 251 H
03/25/25 03/26/25 03/26/25
22:14 00:38 04:08
Glucose 80
POC Glucose 83 109 H
Meal type: Dinner
Meal type: Breakfast
Amount consumed: 100%
Amount consumed: 100%
Patient Education
--- NOTE | 2025-03-26 07:44 | W.PN.HOSP.TC ---
Addendum entered and electronically signed by Ty Yadav MD 03/26/25 19:52:
Attending Addendum-
I saw and evaluated the patient. I reviewed the resident�s note and agree with findings and plan as documented in the resident�s note. Sub: reverted back to sinus. feels much less sob today. Denies CP palps fevers chills. Full 12 point ROS reviewed
and negative except as documented Exam: Vitals reviewed in chart GEN-NAD heart RRR no MRG, lungs- decreased BS @ bases no WRR, abd soft NT ND pos BS, LE B/L LE lymphedema non pitting
Plan:
# SOB/Dyspnea- multifactorial due to a fib, right pleural effusion, and CHF
- improving
- IR thoracentesis- 03/24- 650mls kofi fluid
- fluid sent for analysis-exudate, possibly 'pseudoexudate' due to diuresis- neg for bacterial infection
- cytology-neg for malignancy
- OP followup imaging in 4-6 weeks, no need for IP pulm c/s at this time
# AE HFpEF
- pBNP-987
- repeat echo 03/24-Normal left ventricular size with mild concentric left ventricular hypertrophy, preserved LV function with EF 55 to 60%.
- appreciate cardiology input
- daily weights
- I & Os
- HOLD furosemide due to NAGA
#Paroxysmal Atrial Fibrillation
- cont care in IVU for initiation of tikosyn x 5 doses (03/25 first dose)
- reverted back to sinus
- appreciate cards input-
- adjust Tikosyn dosing due to elevated QTc and NAGA
-continue Eliquis and 1/2 metoprolol
# NAGA
- hold lasix and losartan, adjust Tikosyn
- repeat BMP in am
#Essential Hypertension
- hold losartan
#Diabetes Mellitus, Insulin-Dependent
- patient uses own pump
- continue insulin pump, appreciate DM HEEL CEMENTER input
#GERD
- continue pantoprazole
#Obstructive Sleep Apnea
- continue CPAP
#Depression
- continue fluoxetine
Code status: full code
DVT prophylaxis: Eliquis
Dispo-eventual dc home over weekend after tikosyn x 5 doses and stable
Time spent coordinating care, review of plan of care with resident, personally reviewed records in EMR, med rec, consults, notes, labs, radiology, d/w nursing and cards� 53 mins
Original Note:
Today's Communication/Plan
-
Patient converted back into sinus rhythm after Tikosyn yesterday. Patient will receive a decrease dose of Tikosyn today. Continue to monitor QTc and electrolytes. Cautious of QT prolonging drugs.
New NAGA. Lasix and losartan held.
Patient's heart rate slower. Metoprolol reduced in half
Assessment / Plan
Assessment / Plan
Impression
Ms. Amina Dawson is a 69-year-old female with PMH notable for chronic HFpEF, PAF, HTN, pulm HTN, HLD, IDDM, IAN and GERD who presented from cardiology clinic for increased SOB and 11 pound weight gain in 4 weeks. Cardiology has titrated furosemide
without effectiveness. Patient denied recent illness, F/C, cough, CP, N/V/D, or urinary symptoms.
Thoracentesis 03/24/25 with 650 cc clear kofi fluid. Positive for exudative effusion per 2 Light's criteria (LDH). SOB decreased.
Afib with increased SOB and cough 03/25/25. Transferred to IVU for Tikosyn per cardiology.
Plan
#Paroxysmal Atrial Fibrillation
Sustained A-fib with shortness of breath 03/25/2025.
- Tikosyn in IVU: 500 mcg 03/25, 125 mcg q12h 03/26
- continue Eliquis 5 mg p.o. twice daily
- metoprolol halved to 25 mg po bid 03/26
- monitor QTc: 485 baseline -> 548 after dofetilide -> 500 next am
�Avoid QT-prolonging meds
- monitor K (>4) and Mg (>2). Replete as needed
#NAGA 03/16/2025
Baseline creatinine 1.0. Creatinine increased to 1.4
1 day after starting Tikosyn
� Likely due to hypovolemia from increased diuretic dose compared to home
� Blood pressure stable in 130s to 140s
- Held furosemide 80 mg IV BID and losartan 50 mg po bid
#SOB 2/2 Right pleural effusion�drained
#Cough
CXR: 1. Moderate right pleural effusion, increased in size compared to prior chest x-ray. 2. Right lower lobe airspace disease may also be present.
Thoracentesis: 650 mL clear kofi fluid removed
Pleural fluid: Total protein 2.8, LDH 133, WBC 1187, 10% PMNs, glucose 124, pH 7.49
Serum: Protein 7.5, LDH not obtained
� Pleural/serum protein ratio: 0.37. Less than 0.5, so transient effusion. Likely pulmonary edema due to HFpEF.
� Serum LDH 206, greater than two thirds upper limit of normal (240). Pleural/serum LDH ratio equals 0.64. Meets 2 LDH exudative Light's criteria, but clinical picture more consistent with cardiogenic, transudative pleural effusion
#11 pound weight gain over 1 month 2/ acute on chronic HFpEF
pBNP 987 03/23/2025. 834 in 11/2023. 183
EKG: NORMAL SINUS RHYTHM. INCOMPLETE RIGHT BUNDLE BRANCH BLOCK. SEPTAL INFARCT , AGE UNDETERMINED
- IV furosemide 80mg BID. Held 03/26/25 since Cr increased
#Dyspnea with minimal exertion
� Physical therapy: Home with assistance. Patient understand outpatient physical therapy
� Lives at home with 14 stairs. Difficult using the stairs but can manage. She lives with her
#Chronic HFpEF
- daily weights: 100 kg on admission. Lowest weight 82-94 kg in 11/2023. 99.4 kg 03/25/2025. 99.8 kg 03/26
- I & Os
- hold PO furosemide.
Consult cardiology: Patient has been taking Lasix 80 mg p.o. twice daily for the last 3 days without significant response. Suspect volume overload.
� Increased furosemide to 80 mg IV BID
� Echo: EF 55 to 60%, normal LV size, severe tricuspid regurg with PA pressure 25 mmHg, dilated right ventricle with normal systolic function similar to VICTOR HUGO 01/2025
- Considering starting SGLT2 inhibitor for patient's chronic HFpEF, given that she has been hypertensive and has DM.
-Consider o/p cxr in 4-6 weeks. pulm outpatient follow-up if needed
#Abd fullness
Could be constipation, but monitor for ascites from hepatic insufficiency/portal hypertension from heart failure
�MiraLAX
#Essential Hypertension
- continue losartan 50 mg p.o. twice daily
#Diabetes Mellitus, Insulin-Dependent
- continue patient's home insulin pump
DM management following
#GERD
- continue pantoprazole
#Obstructive Sleep Apnea
- continue CPAP
#Depression
- continue fluoxetine 20 mg p.o. daily. Held due to QT-prolonging side effect & pt starting Tikosyn
#Hyperlipidemia
#Pulmonary Hypertension
Code status: full code
DVT prophylaxis: Eliquis
Anticipated Discharge: > 48 hours
Subjective/Interval History
-
Date of Service: March 26, 2025
No acute events overnight. Patient said that her shortness of breath is decreased. Her cough continues, and she takes a cough medicine. She was anxious about fluid accumulation in her lungs discussion due to the Lasix being held for her new NAGA
today. She was reassured that her converting back into sinus rhythm from A-fib is why she feels less short of breath and is preventing fluid accumulation.
Objective Data
-
Labs:
Laboratory Results
03/26/25
04:08
WBC 4.0 L
Hgb 11.1 L
Hct 36.8 L
Plt Count 148
Sodium 133 L
Potassium 4.0
Chloride 99
Carbon Dioxide 28
BUN 36 H
Creatinine 1.4 H
Glucose 80
Calcium 8.7
Total Bilirubin 1.1
AST 30
ALT 19
Alkaline Phosphatase 138 H
Vital Signs:
Vital Signs
Temp Pulse Resp BP Pulse Ox
97.8 F 55 16 146/54 97
03/26/25 03:59 03/26/25 06:00 03/26/25 03:59 03/26/25 03:59 03/26/25 03:59
I&O
03/25/25 03/26/25 03/27/25
06:59 06:59 06:59
Intake Total 240 / 240 600 / 600
Output Total 200 / 200
Balance 240 / 240 400 / 400
Review of Systems
-
History Source: Patient
All other systems: Reviewed and negative
Physical Exam
-
General: Well Developed, Well Nourished, No Apparent Distress, Comfortable and Conversant
HEENT: Normocephalic, Atraumatic, Anicteric, No Ptosis, Nose Appears Normal and Ears Appear Normal
Respiratory: Clear to Auscultation
Cardiac: Regular Rhythm and S1/S2
GI: Soft, Nontender, Nondistended and Normal Bowel Sounds
Musculoskeletal: No Clubbing and No Cyanosis
Skin: Warm and Dry
Neuro: Awake and Alert
Psych: Calm
[2025-03-26 08:41] LABS: Glucose - Point of Care 101 mg/dl (70-99)
[2025-03-26] MEDS: PROTONIX 40 MG PO ×2 (08:50→19:56)
[2025-03-26] MEDS: COZAAR 50 MG PO (08:50)
[2025-03-26] MEDS: ELIQUIS 5 MG PO ×2 (08:50→19:56)
[2025-03-26] MEDS: LOPRESSOR 25 MG PO (08:50)
[2025-03-26] MEDS: LASIX IV ×2 (08:51→09:36)
--- NOTE | 2025-03-26 09:12 | W.PN.CARDCBS ---
Addendum entered and electronically signed by Fay Carrasquillo MD 03/26/25 12:48:
I saw and examined the patient.
The Channel Development Director's note was reviewed and I agree with the note.
Comment: Regular rate and rhythm. Distant heart sounds. Decreased breath sounds at the bases. +1 bilateral edema.
She presented with atrial fibrillation with increased ventricular response. Currently in sinus rhythm. She is on dofetilide but increased QT interval noted. We reviewed with electrophysiology and dofetilide was reduced. Follow QTc by EKG.
Telemetry stable. Continue to monitor
During hospital stay she was volume overloaded with heart failure with preserved ejection fraction and being diuresed. She has known severe tricuspid regurgitation. Being followed as an outpatient. She underwent thoracentesis. [place] to be by
primary service pseudo exudative. Continue good volume control. Patient with lower extremity edema which may or may not be secondary to increased volume. Given increased creatinine agree with holding Lasix and following. SGLT2 inhibitors appear
to be prohibitive cost [place] continue to reassess.
Renal insufficiency noted. Caution with dofetilide. Both losartan and IV Lasix are being held.
Original Note:
Today's Communication / Plan
-
Restart Tikosyn at a much lower dose of 125 mcg every 12 hours. Follow QTc
Lopressor dose reduced
Continue Eliquis
Holding IV Lasix and Cozaar given bump in creatinine
Pleural effusion fluid analysis appears exudative, consider pulm evaluation
Impression / Plan
-
Please refer to office note dated 03/23/25 to be used as consult note
Primary Brewery Technician: Dr. Boles
Assessment:
GEORGE
Mod R pleural effusion status post right Thora for 650 cc 03/24, exudative
Suspected acute on chronic HFpEF
PAF
s/p ablation 2013, 2023
s/p CV 02/03/25
Chronic OAC with eliquis
Severe TR by VICTOR HUGO 01/2025
PVCs
Mild noncritical CAD by cath 2023
IDDM
CKD 3A
HTN
GERD
Obesity
IAN
VICTOR HUGO 02/03/25: EF 60-65%, severe TR, dilated RA and RV, no thrombus of MIKALA
ECHO 03/24/25: TDS, EF 55 to 60%, mild concentric LVH, dilated RV, severe TR, PAP 25 mmHg
Plan:
-presented with GEORGE, weight gain
-CXR with R pleural effusion and underwent R thora for 650cc 03/24. By my calculation of lights criteria, appears to be exudative. Consider pulmonary evaluation
-Patient reports good response with IV Lasix 80 mg twice daily, although weight not changed if accurate. Patient reports overnight had significant dry cough, which she has had in the past as well creatinine bumped to 1.4 today. Will hold IV Lasix
and Cozaar. prior to admission was on regimen of 80 mg p.o. daily with 120 mg on Tuesdays. dry weight felt to be 216 pounds.
-Would consider for right heart cath
-Echo with results as above, remains with preserved EF and severe TR, reviewed results with patient 03/25
-She was noted to have recurrence of known PAF yesterday. Antiarrhythmic drug therapy discussed with patient and she was transferred to IVU and started on Tikosyn 500 mcg. QTc prolonged after first dose and Tikosyn held overnight. QTc improving
by EKG this morning. Discussed with EP. Will plan to restart Tikosyn at lower dose of 125 mcg twice daily and follow QTc. Also reduced outpatient dose of Lopressor. Continue eliquis. she is scheduled for upcoming office visit with EP to discuss
repeat ablation
-Timothyga cost 100+ dollars per month, so may be cost prohibitive
Progress Note - Brewery Technician
Subjective
Date of Service: March 26, 2025
Reports feeling tired. Also reports did not sleep well as was coughing overnight
Objective
Labs:
03/26/25 04:08
03/26/25 04:08
Labs
Hgb 11.1 g/dL (12.0-16.0) L 03/26/25 04:08
Hct 36.8 % (37.0-47.0) L 03/26/25 04:08
Plt Count 148 10^3/uL (130-400) 03/26/25 04:08
Sodium 133 mmol/L (135-145) L 03/26/25 04:08
Potassium 4.0 mmol/L (3.5-5.1) 03/26/25 04:08
BUN 36 mg/dl (7-17) H 03/26/25 04:08
Creatinine 1.4 mg/dL (0.6-1.0) H 03/26/25 04:08
Glucose 80 mg/dl (70-99) 03/26/25 04:08
Troponins
03/23/25
16:27
Troponin I < 0.012
Vital Signs and I&O:
Vital Signs
Temp Pulse Resp BP Pulse Ox
97.6 F 55 16 146/54 97
03/26/25 08:07 03/26/25 06:00 03/26/25 08:07 03/26/25 03:59 03/26/25 08:07
Vital Signs
Temp Pulse Resp BP Pulse Ox
97.6 F 55 16 146/54 97
03/26/25 08:07 03/26/25 06:00 03/26/25 08:07 03/26/25 03:59 03/26/25 08:07
Intake & Output
03/24/25 03/25/25 03/26/25 03/27/25
07:59 07:59 07:59 07:59
Intake Total 240 / 240 240 / 240 600 / 600
Output Total 200 / 200
Balance 240 / 240 240 / 240 400 / 400
Physical Exam
Physical Exam
GEN: No distress, awake, alert, oriented x3. Obese
HEENT: supple, anicteric, mmm, EOMI
LUNGS: CTA B/L, no wheezes
CV: Reg, S1/S2, 1/6 murmur
ABD: soft, BS+, NT/ND
EXT: No cyanosis, clubbing. Trace edema of bilateral lower extremity
NEURO: Gross non-focal
SKIN: Warm, pink, dry. No rash
--- NOTE | 2025-03-26 09:55 | PTCARENOTE ---
Pt own glucose monitor and our accucheck not quite correlating. Her monitor is reading glucose as 80, ours is 104 this morning. Pt states her breathing is better than yesterday. Lasix is on hold due to elevated creatinine today.
[2025-03-26 10:07] LABS: Glucose - Point of Care 112 mg/dl (70-99)
[2025-03-26] MEDS: PATIENT'S OWN INSULIN PUMP 10 UNITS SC ×2 (10:46→13:30)
--- NOTE | 2025-03-26 11:30 | CM ---
Addendum entered by Denise Montanez 03/26/25 14:19:
I placed a paper script for three day supply of Dofetilide in Mrs. Dawson discharge folder to go to [facility] when discharged to give her a three supply to go home with. Updated her RN.
Original Note:
Reviewed chart. Mrs. Dawson was transferred to IVU. Met with Mrs. Dawson to review discharge plans. She states prior to admission she resides with her spouse in a two story home with fourteen steps to enter. She states she has a one level living
once inside the home. She states prior to admission she was independent with ambulation and adls. She states she has a CPAP Machine at home. She states she has a prescription plan and uses [facility]. Reviewed her co-pay for Dofetilide co-pay
of $32.44 with her. She is okay with Dofetilide co-pay. She felt the Farxiga co-pay was a a lot because she is already paying $800.00 for her Eliquis, We reviewed PAC/Pace/Net application. Gave the PACE information and application to see if she
would qualify for the program. Telephone call to her [facility] to see if they have Dofetilide 125mcg in stock. [facility] has it in stock. Will need a three day script of Dofetilide to go [facility] so she can take a three day supply home
with her. Medical work-up in progress. The discharge plan is to return home with her spouse when medically stable.
[2025-03-26] MEDS: TIKOSYN 125 MCG PO ×2 (12:14→22:53)
[2025-03-26 13:23] LABS: Glucose - Point of Care 175 mg/dl (70-99)
--- NOTE | 2025-03-26 15:45 | PTCARENOTE ---
Assumed care of pt, Ox3, ambulatory in room. Denies pain at present. Lungs diminished at the bases, denies shortness of breath. Monitor shows SB-SR, HR 50-60. Trace BLE edema noted, PVD discolored legs, +pp. Tolerating diet, voiding without
difficulty. Self administering insulin via implanted pump. POC discussed with pt, resting comfortably. Call vickers in reach.
[2025-03-26 16:30] LABS: Glucose - Point of Care 91 mg/dl (70-99)
[2025-03-26] MEDS: PATIENT'S OWN INSULIN PUMP 8.75 UNITS SC (17:40)
[2025-03-26] MEDS: FLUSH (NSS) 1 FLUSH IV (19:56)
[2025-03-26] MEDS: LOPRESSOR PO (20:11)
[2025-03-26 22:28] LABS: Glucose - Point of Care 218 mg/dl (70-99)
[2025-03-26] MEDS: PATIENT'S OWN INSULIN PUMP 4 UNITS SC (22:31)
[2025-03-27] VITALS (8 sets, daily range): BP systolic 127–151; BP diastolic 41–70; BMI 35.8
--- NOTE | 2025-03-27 00:21 | PTCARENOTE ---
Received pt at change of shift resting in bed. SB on tele, HR 50's. Reached out to Dr. Boles about pt HR, instructed RN to hold PM dose of Lopressor--see MAR. Tikosyn dose #3 administered. pt updated on plan of care, verbalizes understanding. pt
denies any CP or SOB at this time. pt wearing own CPAP. Encouraged pt to call RN with any questions/concerns. Call vickers within reach.
[2025-03-27] MEDS: ROBITUSSIN DM 10 ML PO ×2 (03:38→21:17)
[2025-03-27 03:58] LABS: Hematocrit 38.3 % (37.0-47.0); Hemoglobin 11.6 g/dL (12.0-16.0); Mean Corp Hgb Conc. 30.3 g/dL (33.0-37.0); Mean Corpuscular Volume 89.5 fL (81.0-99.0); Platelet Count 136 10^3/uL (130-400); Red Cell Dist. Width 15.1 % (11.5-14.5)
[2025-03-27 04:02] LABS: Glucose - Point of Care 104 mg/dl (70-99)
[2025-03-27 04:19] LABS: ALT (SGPT) 20 U/L (0-35); AST (SGOT) 27 U/L (14-36); Albumin 3.9 g/dl (3.5-5.0); Alkaline Phosphatase 142 U/L (38-126); Blood Urea Nitrogen 35 mg/dl (7-17); Calcium 9.1 mg/dl (8.4-10.2); Carbon Dioxide 29 mmol/L (22-30); Chloride 100 mmol/L (98-107); Estimated Creatinine Clearance 64 ml/min; Glucose 97 mg/dl (70-99); Potassium 4.2 mmol/L (3.5-5.1); Sodium 134 mmol/L (135-145); Total Protein 7.1 g/dl (6.3-8.2); eGFR > 60.00
[2025-03-27] MEDS: ELIQUIS 5 MG PO ×2 (07:31→20:07)
[2025-03-27] MEDS: LOPRESSOR 25 MG PO (07:31)
[2025-03-27] MEDS: PROTONIX 40 MG PO ×2 (07:31→20:07)
--- NOTE | 2025-03-27 07:53 | PTCARENOTE ---
Assumed care of pt from night RN. AAOx3. NSR/SB on tele, HR 50s-70s. VSS. Pt still endorsing some shortness of breath but states 'breathing feels better today than yesterday'. Remains on room air, SpO2 93%. VSS. Ongoing QTc monitoring for Tikosyn
administration. Assessment documented. Pt resting in bed, call vickers in reach.
--- NOTE | 2025-03-27 08:26 | W.PN.CARDCBS ---
Today's Communication / Plan
-
Resume po Lasix and Cozaar
Will need BMP in 1 week upon discharge
Reassess QTc after next dose of Tikosyn at 11 AM. If QT more prolonged, will need to discontinue Tikosyn and plan for initiation of Amio after washout. If improving, will continue 125 mcg
For possible DC later today
Outpatient follow-up with EP arranged to discuss repeat ablation
Impression / Plan
-
Please refer to office note dated 03/23/25 to be used as consult note
Primary Heel Slicker: Dr. Boles
Assessment:
GEORGE
Mod R pleural effusion status post right Thora for 650 cc 03/24, exudative
Suspected acute on chronic HFpEF
PAF
s/p ablation 2023
s/p CV 02/03/25
Chronic OAC with eliquis
Severe TR by VICTOR HUGO 01/2025
PVCs
Mild noncritical CAD by cath 2023
IDDM
CKD 3A
HTN
GERD
Obesity
IAN
VICTOR HUGO 02/03/25: EF 60-65%, severe TR, dilated RA and RV, no thrombus of MIKALA
ECHO 03/24/25: TDS, EF 55 to 60%, mild concentric LVH, dilated RV, severe TR, PAP 25 mmHg
Plan:
-presented with GEORGE, weight gain
-CXR with R pleural effusion and underwent R thora for 650cc 03/24. By my calculation of lights criteria, appears to be exudative. Would recommend pulmonary evaluation, planned as outpatient
-Responded well to diuresis with IV Lasix. Creatinine bumped to 1.4 yesterday and Lasix placed on hold. Improved to 1.0 today. Will resume outpatient regimen of Lasix upon discharge�80 mg p.o. daily with 120 mg on Tuesdays.
- Will also resume outpatient Cozaar
-Echo with results as above, remains with preserved EF and severe TR, reviewed results with patient 03/25
-Had PAF earlier this admission and was started on Tikosyn. QTc prolonged after first dose of 500 mcg and second dose of Tikosyn was held. As QTc was improving was restarted on 125 mcg and QTc has been borderline but relatively stable. Repeat EKG
scheduled for 1 PM after fourth dose. If worsened QT prolongation, will need to stop Tikosyn and plan for amiodarone after washout
- K/mag stable
- Continue reduced dose of outpatient Lopressor
- Continue Eliquis
- She is scheduled for upcoming office visit with EP to discuss repeat ablation
- Farxiga likely cost prohibitive after evaluation by case management
- Discussed with nursing
Progress Note - Heel Slicker
Subjective
Date of Service: March 27, 2025
Feeling well. No clear complaints
Objective
Labs:
03/27/25 03:46
03/27/25 03:46
Labs
Hgb 11.6 g/dL (12.0-16.0) L 03/27/25 03:46
Hct 38.3 % (37.0-47.0) 03/27/25 03:46
Plt Count 136 10^3/uL (130-400) 03/27/25 03:46
Sodium 134 mmol/L (135-145) L 03/27/25 03:46
Potassium 4.2 mmol/L (3.5-5.1) 03/27/25 03:46
BUN 35 mg/dl (7-17) H 03/27/25 03:46
Creatinine 1.0 mg/dL (0.6-1.0) 03/27/25 03:46
Glucose 97 mg/dl (70-99) 03/27/25 03:46
Vital Signs and I&O:
Vital Signs
Temp Pulse Resp BP Pulse Ox
97.7 F 64 22 151/61 93
03/27/25 07:02 03/27/25 07:31 03/27/25 07:02 03/27/25 07:31 03/27/25 07:02
Vital Signs
Temp Pulse Resp BP Pulse Ox
97.7 F 64 22 151/61 93
03/27/25 07:02 03/27/25 07:31 03/27/25 07:02 03/27/25 07:31 03/27/25 07:02
Intake & Output
03/25/25 03/26/25 03/27/25 03/28/25
07:59 07:59 07:59 06:59
Intake Total 240 / 240 600 / 600 760 / 760
Output Total 200 / 200 1025 / 1025
Balance 240 / 240 400 / 400 -265 / -265
Physical Exam
Physical Exam
GEN: No distress, awake, alert, oriented x3. Obese
HEENT: supple, anicteric, mmm, EOMI
LUNGS: CTA B/L, no wheezes
CV: Reg, S1/S2, 1/6 murmur
ABD: soft, BS+, NT/ND
EXT: No cyanosis, clubbing. Trace edema of bilateral lower extremity
NEURO: Gross non-focal
SKIN: Warm, pink, dry. No rash
[2025-03-27 08:29] LABS: Glucose - Point of Care 111 mg/dl (70-99)
[2025-03-27] MEDS: PATIENT'S OWN INSULIN PUMP 11.9 UNITS SC (09:03)
--- NOTE | 2025-03-27 09:19 | W.PN.HOSP.TC ---
Today's Communication/Plan
-
Creatinine back down to 1, down from 1.4 yesterday. Lasix and Cozaar resumed.
Patient asked why fluoxetine was held and expressed worry about lack of taper. I explained to the patient that fluoxetine has QT prolonging effects. Patient is agreeable to continuing to not take fluoxetine, as addressing her A-fib is more of a
priority. She denies flulike symptoms of antidepressant discontinuation syndrome. Expansion Joint Finisher also prefers holding fluoxetine.
Pending cardiology update regarding whether patient will continue Tikosyn versus switch to amiodarone, based on EKG (QTc 508 in AM, 492 in PM).
Advised patient to get a BMP 1 week after discharge and keep outpatient follow-up with electrophysiology to discuss repeat ablation.
Assessment / Plan
Assessment / Plan
Impression
Ms. Amina Dawson is a 69-year-old female with PMH notable for chronic HFpEF, PAF, HTN, pulm HTN, HLD, IDDM, IAN and GERD who presented from cardiology clinic for increased SOB and 11 pound weight gain in 4 weeks. Cardiology has titrated furosemide
without effectiveness. Patient denied recent illness, F/C, cough, CP, N/V/D, or urinary symptoms.
Thoracentesis 03/24/25 with 650 cc clear kofi fluid. Positive for exudative effusion per 2 Light's criteria (LDH). SOB decreased.
The next day, patient had increased shortness of breath and was in in Afib 03/25/25. Transferred to IVU for Tikosyn per cardiology. QTc longer (485 at baseline). After first dose of dofetilide 500 mcg, QTc 548. Second dose of Tikosyn held. QTc
500 ms the next morning. He was then restarted at 125 mcg. QTc 490 ms after 2nd and 508 after 3rd dose.
Plan
#Paroxysmal Atrial Fibrillation
Sustained A-fib with shortness of breath 03/25/2025.
- Tikosyn in IVU: 500 mcg 03/25, 125 mcg q12h 03/26
- continue Eliquis 5 mg p.o. twice daily
- metoprolol halved to 25 mg po bid 03/26
- monitor QTc: 485 baseline -> after first dose 500 mg: QTc 548 milliseconds-> second dose held -> QTc 500 next am -> Tikosyn restarted at 125 mcg -> QTc 490 ms -> Tikosyn third dose, QTc 508 ms
�Avoid QT-prolonging meds
- monitor K (>4) and Mg (>2). Replete as needed
#NAGA 03/26/2025�resolved 04/06/2025
Baseline creatinine 1.0. Creatinine increased to 1.4
1 day after starting Tikosyn
� Likely due to hypovolemia from increased diuretic dose compared to home
� Blood pressure stable in 130s to 140s
- Held furosemide 80 mg IV BID and losartan 50 mg po bid. Resumed the next day after creatinine normalized
#SOB 2/2 Right pleural effusion�drained
#Cough
CXR: 1. Moderate right pleural effusion, increased in size compared to prior chest x-ray. 2. Right lower lobe airspace disease may also be present.
Thoracentesis: 650 mL clear kofi fluid removed
Pleural fluid: Total protein 2.8, LDH 133, WBC 1187, 10% PMNs, glucose 124, pH 7.49
Serum: Protein 7.5, LDH not obtained
� Pleural/serum protein ratio: 0.37. Less than 0.5, so transient effusion. Likely pulmonary edema due to HFpEF.
� Serum LDH 206, greater than two thirds upper limit of normal (240). Pleural/serum LDH ratio equals 0.64. Meets 2 LDH exudative Light's criteria, but clinical picture more consistent with cardiogenic, transudative pleural effusion
#11 pound weight gain over 1 month 2/2 acute on chronic HFpEF
pBNP 987 03/23/2025. 834 in 11/2023. 183
EKG: NORMAL SINUS RHYTHM. INCOMPLETE RIGHT BUNDLE BRANCH BLOCK. SEPTAL INFARCT , AGE UNDETERMINED
- IV furosemide 80mg BID. Held 03/26/25 since NAGA. Resumed 03/27/2025 since NAGA resolved
#Dyspnea with minimal exertion
� Physical therapy: Home with assistance. Patient understand outpatient physical therapy
� Lives at home with 14 stairs. Difficult using the stairs but can manage. She lives with her
#Chronic HFpEF
- daily weights: 100 kg on admission. Lowest weight 82-94 kg in 11/2023. 99.4 kg 03/25/2025. 99.8 kg 03/26
- I & Os
- hold PO furosemide.
Consult cardiology: Patient has been taking Lasix 80 mg p.o. twice daily for the last 3 days without significant response. Suspect volume overload.
� Increased furosemide to 80 mg IV BID
� Echo: EF 55 to 60%, normal LV size, severe tricuspid regurg with PA pressure 25 mmHg, dilated right ventricle with normal systolic function similar to VICTOR HUGO 01/2025
- Considering starting SGLT2 inhibitor for patient's chronic HFpEF, given that she has been hypertensive and has DM.
#Abd fullness
Could be constipation, but monitor for ascites from hepatic insufficiency/portal hypertension from heart failure
�MiraLAX
#Essential Hypertension
- continue losartan 50 mg p.o. twice daily
#Diabetes Mellitus, Insulin-Dependent
- continue patient's home insulin pump
DM management following
#GERD
- continue pantoprazole
#Obstructive Sleep Apnea
- continue CPAP
#Depression
- continue fluoxetine 20 mg p.o. daily. Held due to QT-prolonging side effect & pt starting Tikosyn
#Hyperlipidemia
#Pulmonary Hypertension
Code status: full code
DVT prophylaxis: Eliquis
Anticipated Discharge: Within 24 hours
Subjective/Interval History
-
Date of Service: March 27, 2025
No acute events overnight. Patient denies shortness of breath continues to remain improved from presentation and when she was in A-fib the day after thoracentesis.
Patient asked why fluoxetine was held and expressed worry about lack of taper. I explained to the patient that fluoxetine has QT prolonging effects. Patient is agreeable to continuing to not take fluoxetine, as addressing her A-fib is more of a
priority. She denies flulike symptoms of antidepressant discontinuation syndrome. Expansion Joint Finisher also prefers holding fluoxetine.
Objective Data
-
Labs:
Laboratory Results
03/27/25
03:46
WBC 3.8 L
Hgb 11.6 L
Hct 38.3
Plt Count 136
Sodium 134 L
Potassium 4.2
Chloride 100
Carbon Dioxide 29
BUN 35 H
Creatinine 1.0
Glucose 97
Calcium 9.1
Total Bilirubin 1.1
AST 27
ALT 20
Alkaline Phosphatase 142 H
Vital Signs:
Vital Signs
Temp Pulse Resp BP Pulse Ox
97.7 F 64 22 151/61 93
03/27/25 07:02 03/27/25 07:31 03/27/25 07:02 03/27/25 07:31 03/27/25 07:02
I&O
03/26/25 03/27/25 03/28/25
06:59 06:59 05:59
Intake Total 600 / 600 760 / 760
Output Total 200 / 200 1025 / 1025
Balance 400 / 400 -265 / -265
Review of Systems
-
History Source: Patient
All other systems: Reviewed and negative
Physical Exam
-
General: Well Developed, Well Nourished, No Apparent Distress, Comfortable and Conversant
HEENT: Normocephalic, Atraumatic, Anicteric, Nose Appears Normal and Ears Appear Normal
Respiratory: Clear to Auscultation and Rales (Mild bibasilar rales)
Cardiac: Regular Rhythm and S1/S2
GI: Soft, Nontender, Nondistended and Normal Bowel Sounds
Musculoskeletal: No Clubbing, No Cyanosis, Edema, Right Lower Extrem and Edema, Left Lower Extrem
Skin: Warm and Dry
Neuro: Awake and Alert
Psych: Calm
[2025-03-27] MEDS: LASIX 80 MG PO (10:52)
[2025-03-27] MEDS: TIKOSYN 125 MCG PO ×2 (11:01→22:05)
[2025-03-27 12:01] LABS: Glucose - Point of Care 205 mg/dl (70-99)
[2025-03-27] MEDS: PATIENT'S OWN INSULIN PUMP 8.75 UNITS SC (12:59)
--- NOTE | 2025-03-27 14:21 | W.PN.UPDATE ---
Update Note
Progress Note Update
I saw and evaluated the patient. I reviewed the resident�s note and agree with findings and plan as documented in the resident�s note.
# SOB/Dyspnea- multifactorial due to a fib, right pleural effusion, and CHF
- improved
- IR thoracentesis- 03/24- 650mls kofi fluid
- fluid sent for analysis-exudate, possibly 'pseudo-exudative' due to diuresis- neg for bacterial infection
- cytology-neg for malignancy
- OP followup imaging in 4-6 weeks, no need for IP pulm c/s at this time
# Acute on chronic diastolic congestive heart failure
-Patient weight not too far off from baseline. pBNP-987
- repeat echo 03/24-Normal left ventricular size with mild concentric left ventricular hypertrophy, preserved LV function with EF 55 to 60%.
- Patient diuretics has been changed to oral diuretics
#Paroxysmal Atrial Fibrillation
- cont care in IVU for initiation of tikosyn x 5 doses (03/25 first dose)
- reverted back to sinus
-continue Eliquis and 1/2 metoprolol
- Cardiology monitoring QTc with Tikosyn loading. Considering switch to amiodarone if not able to tolerate Tikosyn
# NAGA - resolved
-Patient has been switched to oral Lasix
#Essential Hypertension
- hold losartan
#Diabetes Mellitus, Insulin-Dependent
- patient uses own pump
- continue insulin pump, appreciate DM RELAY CHECKER input
#GERD
- continue pantoprazole
#Obstructive Sleep Apnea
- continue CPAP
#Depression
- continue fluoxetine
Code status: full code
DVT prophylaxis: Eliquis
Cardiology considering possibly clearing patient from A-fib perspective. If-so patient can be discharged from medical perspective as well later today
[2025-03-27 17:18] LABS: Glucose - Point of Care 162 mg/dl (70-99)
[2025-03-27] MEDS: PATIENT'S OWN INSULIN PUMP 7.25 UNITS SC (18:20)
[2025-03-27] MEDS: COZAAR 50 MG PO (20:07)
[2025-03-27] MEDS: LOPRESSOR PO (20:58)
[2025-03-27 21:25] LABS: Glucose - Point of Care 159 mg/dl (70-99)
[2025-03-27] MEDS: PATIENT'S OWN INSULIN PUMP 4.38 UNITS SC (21:25)
[2025-03-28 00:10] VITALS: BP 156/53
--- NOTE | 2025-03-28 01:13 | PTCARENOTE ---
assumed care of patient at the change of shift. patient eager to go home. resting comfortably. dyspnea on exertion noted. patient states 'i get all worked up getting out of this bed.' patient states improved breathing since admission. 96% on RA.
SB/SR on [id number]. 5th dose of Tikosyn given- QTc 476. independent in the room. denies any pain. patient has own insulin pump LL abdomen- changed this evening per patient. educated patient to inform RN with any changes. makes needs known.
[2025-03-28 02:41] VITALS: BP 152/50
[2025-03-28 03:18] VITALS: BP 155/61
[2025-03-28 03:32] LABS: Hematocrit 39.2 % (37.0-47.0); Hemoglobin 11.8 g/dL (12.0-16.0); Mean Corp Hgb Conc. 30.1 g/dL (33.0-37.0); Mean Corpuscular Volume 90.1 fL (81.0-99.0); Platelet Count 157 10^3/uL (130-400); Red Cell Dist. Width 15.0 % (11.5-14.5)
[2025-03-28 03:56] LABS: ALT (SGPT) 22 U/L (0-35); AST (SGOT) 28 U/L (14-36); Albumin 4.3 g/dl (3.5-5.0); Alkaline Phosphatase 165 U/L (38-126); Blood Urea Nitrogen 36 mg/dl (7-17); Calcium 9.5 mg/dl (8.4-10.2); Carbon Dioxide 29 mmol/L (22-30); Chloride 101 mmol/L (98-107); Estimated Creatinine Clearance 59 ml/min; Glucose 136 mg/dl (70-99); Potassium 4.3 mmol/L (3.5-5.1); Sodium 137 mmol/L (135-145); Total Protein 7.9 g/dl (6.3-8.2); eGFR 54.73
[2025-03-28 07:12] VITALS: BP 166/60
[2025-03-28 07:14] VITALS: BP 157/55
[2025-03-28 08:11] LABS: Glucose - Point of Care 118 mg/dl (70-99)
[2025-03-28] MEDS: ELIQUIS 5 MG PO (08:36)
[2025-03-28] MEDS: TIKOSYN 125 MCG PO (08:36)
[2025-03-28] MEDS: COZAAR 50 MG PO (08:36)
[2025-03-28] MEDS: PROTONIX 40 MG PO (08:37)
[2025-03-28] MEDS: LOPRESSOR 25 MG PO (08:37)
[2025-03-28] MEDS: PATIENT'S OWN INSULIN PUMP 12.01 UNITS SC (08:37)
[2025-03-28] MEDS: LASIX 80 MG PO (08:40)
--- NOTE | 2025-03-28 09:09 | W.PN.CARDCBS ---
Today's Communication / Plan
-
From a cardiac standpoint stable for discharge to home today on 0.125 of dofetilide twice daily
Of note she has been mildly bradycardic and therefore beta-carmelita has been on hold.
Would discharge on reduced dose metoprolol, reducing from 25 mg twice daily to 12.5 mg twice daily
We have arranged outpatient follow-up
Impression / Plan
-
Please refer to office note dated 03/23/25 to be used as consult note
Primary Customer Account Manager: Dr. Boles
Assessment:
GEORGE
Mod R pleural effusion status post right Thora for 650 cc 03/24, exudative
Suspected acute on chronic HFpEF
PAF
s/p ablation 2013, 2023
s/p CV 02/03/25
Chronic OAC with eliquis
Severe TR by VICTOR HUGO 01/2025
PVCs
Mild noncritical CAD by cath 2023
IDDM
CKD 3A
HTN
GERD
Obesity
IAN
[facility] HUGO 02/03/25: EF 60-65%, severe TR, dilated RA and RV, no thrombus of MIKALA
ECHO 03/24/25: TDS, EF 55 to 60%, mild concentric LVH, dilated RV, severe TR, PAP 25 mmHg
Assessment / plan:
She was unable to tolerate higher dose dofetilide. She is tolerating low-dose dofetilide at 0.125 mg twice daily with stable corrected QT interval.
Plan would be for discharge to home today on dofetilide 0.125 mg twice daily
Reduced dose metoprolol, reducing from 25 mg twice daily to 12.5 mg twice daily
For long-term rhythm control, she prefers repeat EP study and ablation.
I have contacted my office who will contact her next week to arrange EP study and ablation. In the meantime continue dofetilide 0.125 mg twice daily
Maintain Eliquis for atrial fibrillation related thromboembolic risk reduction
Regarding pleural effusion
CXR with R pleural effusion and underwent R thora for 650cc 03/24, appears to be exudative.
Would recommend pulmonary evaluation, planned as outpatient
Responded well to diuresis with IV Lasix. Creatinine bumped to 1.4 leading to Lasix hold followed by improved creatinine and resumption of Lasix at her outpatient dose
Resume outpatient regimen of Lasix upon discharge�80 mg p.o. daily with 120 mg on Tuesdays.
Farxiga likely cost prohibitive after evaluation by case management
Stable for discharge to home today from a cardiology standpoint
Progress Note - Customer Account Manager
Subjective
Date of Service: March 28, 2025
No chest pain shortness of breath palpitations or dizziness. Feels well
Objective
Labs:
03/28/25 02:39
03/28/25 02:39
Labs
Hgb 11.8 g/dL (12.0-16.0) L 03/28/25 02:39
Hct 39.2 % (37.0-47.0) 03/28/25 02:39
Plt Count 157 10^3/uL (130-400) 03/28/25 02:39
Sodium 137 mmol/L (135-145) 03/28/25 02:39
Potassium 4.3 mmol/L (3.5-5.1) 03/28/25 02:39
BUN 36 mg/dl (7-17) H 03/28/25 02:39
Creatinine 1.1 mg/dL (0.6-1.0) H 03/28/25 02:39
Glucose 136 mg/dl (70-99) H 03/28/25 02:39
Vital Signs and I&O:
Vital Signs
Temp Pulse Resp BP Pulse Ox
98.1 F 68 17 155/61 90
03/28/25 07:11 03/28/25 07:11 03/28/25 07:11 03/28/25 03:18 03/28/25 07:11
Vital Signs
Temp Pulse Resp BP Pulse Ox
98.1 F 68 17 155/61 90
03/28/25 07:11 03/28/25 07:11 03/28/25 07:11 03/28/25 03:18 03/28/25 07:11
Intake & Output
03/26/25 03/27/25 03/28/25 03/29/25
06:59 06:59 05:59 06:59
Intake Total 600 / 600 760 / 760
Output Total 200 / 200 1025 / 1025 900 / 900
Balance 400 / 400 -265 / -265 -900 / -900
Physical Exam
Physical Exam
Well-appearing no acute distress
Regular rate and rhythm with normal S1 and S2, no [id number] 1/6 apical holosystolic murmur no rubs.
Lung clear to auscultation bilaterally slightly reduced breath sounds at the right base
Abdomen soft nontender nondistended normoactive bowel sound
Extremities no clubbing sinus or edema
[2025-03-28] MEDS: ROBITUSSIN DM 10 ML PO (10:18)
[2025-03-28] MEDS: PREVNAR 20 0.5 ML IM (10:52)
[2025-03-28 11:08] VITALS: BP 149/50
[2025-03-28] MEDS: ROBITUSSIN AC 10 ML PO (12:03)
[2025-03-28] MEDS: PATIENT'S OWN INSULIN PUMP SC (13:04)
--- NOTE | 2025-03-28 13:27 | W.PN.HOSP.TC ---
Today's Communication/Plan
-
Patient discharged on 125 mcg Tikosyn twice daily. Outpatient ablation scheduled for the day before .
Since the patient has been mildly bradycardic, reduce metoprolol to 12.5 mg twice daily.
Fluoxetine continues to be held at discharge due to QT prolonging risk.
Cardiology made outpatient follow-up.
Assessment / Plan
Assessment / Plan
Impression
Ms. Amina Dawson is a 69-year-old female with PMH notable for chronic HFpEF, PAF, HTN, pulm HTN, HLD, IDDM, IAN and GERD who presented from cardiology clinic for increased SOB and 11 pound weight gain in 4 weeks. Cardiology has titrated furosemide
without effectiveness. Patient denied recent illness, F/C, cough, CP, N/V/D, or urinary symptoms.
Thoracentesis 03/24/25 with 650 cc clear kofi fluid. Positive for exudative effusion per 2 Light's criteria (LDH). SOB decreased.
The next day, patient had increased shortness of breath and was in in Afib 03/25/25. Transferred to IVU for Tikosyn per cardiology. QTc longer (485 at baseline). After first dose of dofetilide 500 mcg, QTc 548. Second dose of Tikosyn held. QTc
500 ms the next morning. He was then restarted at 125 mcg. QTc 490 ms after 2nd and 508 after 3rd dose.
Plan
#Paroxysmal Atrial Fibrillation
Sustained A-fib with shortness of breath 03/25/2025.
- Tikosyn in IVU: 500 mcg 03/25, 125 mcg q12h 03/26
- continue Eliquis 5 mg p.o. twice daily
- Mildly bradycardic. Metoprolol halved to 25 mg po bid 03/26. Halved to 12.5 mg twice daily on discharge
- monitor QTc: 485 baseline -> after first dose 500 mg: QTc 548 milliseconds-> second dose held -> QTc 500 next am -> Tikosyn restarted at 125 mcg -> QTc 490 ms -> Tikosyn third dose, QTc 508 ms
�Avoid QT-prolonging meds. Fluoxetine continues to be held
- monitor K (>4) and Mg (>2). Replete as needed
Patient discharged on 125 mcg Tikosyn twice daily. Outpatient ablation scheduled for the day before .
Cardiology made outpatient follow-up.
#NAGA 03/26/2025�resolved 04/06/2025
Baseline creatinine 1.0. Creatinine increased to 1.4
1 day after starting Tikosyn
� Likely due to hypovolemia from increased diuretic dose compared to home
� Blood pressure stable in 130s to 140s
- Held furosemide 80 mg IV BID and losartan 50 mg po bid. Resumed the next day after creatinine normalized
#SOB 2/2 Right pleural effusion�drained
#Cough
#11 pound weight gain over 1 month 2/2 acute on chronic HFpEF
CXR: 1. Moderate right pleural effusion, increased in size compared to prior chest x-ray. 2. Right lower lobe airspace disease may also be present.
Thoracentesis: 650 mL clear kofi fluid removed
Pleural fluid: Total protein 2.8, LDH 133, WBC 1187, 10% PMNs, glucose 124, pH 7.49
Serum: Protein 7.5, LDH not obtained
� Pleural/serum protein ratio: 0.37. Less than 0.5, so transient effusion. Likely pulmonary edema due to HFpEF.
� Serum LDH 206, greater than two thirds upper limit of normal (240). Pleural/serum LDH ratio equals 0.64. Meets 2 LDH exudative Light's criteria, but clinical picture more consistent with cardiogenic, transudative pleural effusion
pBNP 987 03/23/2025. 834 in 11/2023. 183
EKG: NORMAL SINUS RHYTHM. INCOMPLETE RIGHT BUNDLE BRANCH BLOCK. SEPTAL INFARCT , AGE UNDETERMINED
- IV furosemide 80mg BID. Held 03/26/25 since NAGA. Resumed 03/27/2025 since NAGA resolved
#Chronic HFpEF
- daily weights: 100 kg on admission. Lowest weight 82-94 kg in 11/2023. 99.4 kg 03/25/2025. 99.8 kg 03/26
- I & Os
- hold PO furosemide.
Consult cardiology: Patient has been taking Lasix 80 mg p.o. twice daily for the last 3 days without significant response. Suspect volume overload.
� Increased furosemide to 80 mg IV BID
� Echo: EF 55 to 60%, normal LV size, severe tricuspid regurg with PA pressure 25 mmHg, dilated right ventricle with normal systolic function similar to [facility]GO 01/2025
- Considering starting SGLT2 inhibitor for patient's chronic HFpEF, given that she has been hypertensive and has DM.
#Abd fullness
Could be constipation, but monitor for ascites from hepatic insufficiency/portal hypertension from heart failure
�MiraLAX
#Essential Hypertension
- continue losartan 50 mg p.o. twice daily
#Diabetes Mellitus, Insulin-Dependent
- continue patient's home insulin pump
DM management following
#GERD
- continue pantoprazole
#Obstructive Sleep Apnea
- continue CPAP
#Depression
- continue fluoxetine 20 mg p.o. daily. Held due to QT-prolonging side effect & pt starting Tikosyn
#Hyperlipidemia
#Pulmonary Hypertension
Code status: full code
DVT prophylaxis: Eliquis
Anticipated Discharge: Today
Subjective/Interval History
-
Date of Service: March 28, 2025
No acute events overnight. Patient states breathing remains improved.
Objective Data
-
Labs:
Laboratory Results
03/28/25
02:39
WBC 4.4 L
Hgb 11.8 L
Hct 39.2
Plt Count 157
Sodium 137
Potassium 4.3
Chloride 101
Carbon Dioxide 29
BUN 36 H
Creatinine 1.1 H
Glucose 136 H
Calcium 9.5
Total Bilirubin 1.2
AST 28
ALT 22
Alkaline Phosphatase 165 H
Vital Signs:
Vital Signs
Temp Pulse Resp BP Pulse Ox
97.8 F 56 20 149/50 94
03/28/25 11:08 03/28/25 11:08 03/28/25 11:08 03/28/25 11:08 03/28/25 11:08
I&O
03/27/25 03/28/25 03/29/25
06:59 05:59 06:59
Intake Total 760 / 760
Output Total 1025 / 1025 900 / 900
Balance -265 / -265 -900 / -900
Review of Systems
-
History Source: Patient
All other systems: Reviewed and negative
Physical Exam
-
General: Well Developed, Well Nourished, No Apparent Distress, Comfortable and Conversant
HEENT: Normocephalic, Atraumatic, Anicteric, Nose Appears Normal and Ears Appear Normal
Respiratory: Clear to Auscultation
Cardiac: Regular Rhythm and S1/S2
GI: Soft, Nontender, Nondistended and Normal Bowel Sounds
Musculoskeletal: No Clubbing and No Cyanosis
Skin: Warm and Dry
Neuro: Awake and Alert
Psych: Calm
--- NOTE | 2025-03-28 14:03 | W.DCSUMMARY ---
Discharge Summary
Discharge Data
Date of Admission: 03/23/25
Date of Discharge: 03/28/25
Total time spent discharging patient (in min): 45
-
Pending Results: No
Hospital Course
Ms. Amina Dawson is a 69-year-old female with PMH notable for chronic HFpEF, PAF, HTN, pulm HTN, HLD, IDDM, IAN and GERD who presented from cardiology clinic for increased SOB and 11 pound weight gain in 4 weeks. Cardiology has titrated furosemide
without effectiveness. Patient denied recent illness, F/C, cough, CP, N/V/D, or urinary symptoms.
Chest x-ray demonstrated moderate right pleural effusion. Thoracentesis 03/24/25 with 650 cc clear kofi fluid. SOB decreased. Pleural fluid positive for exudative effusion per 2 Light's criteria (LDH), but clinical picture most consistent with
cardiogenic pleural effusion as she was on Lasix, so it was likely pseudo exudative.
The next day 03/25/2025, patient had increased shortness of breath and was in in Afib. Cardiology upgraded the patient to IVU for Tikosyn. QTc longer 485 at baseline. After first dose of dofetilide 500 mcg, QTc 548. Second dose of Tikosyn held.
QTc 500 ms the next morning. Tikosyn was restarted at 125 mcg. QTc 490 ms after 2nd and 508 after 3rd dose. Patient was discharged on Tikosyn 125 mg twice daily. Fluoxetine was held due to its risk for prolonged QT. Patient was agreeable to
prioritizing A-fib, and instructed to follow-up with primary care provider regarding potentially starting a different psychotropic medication.
Cardiology arrange follow-up and cardiac ablation for the day before .
Since her heart rate was mildly bradycardic after conversion back to sinus rhythm, metoprolol was reduced back to her home 12.5 mg p.o. twice daily. Discharged on her Lasix 80 mg p.o. daily. For her chronic cough, she was provided
codeine�guaifenesin prescription.
Primary diagnosis:
A-fib
Secondary diagnoses:
Exertional dyspnea
Chronic HFpEF
Depression
Prolonged QT
Hypertension
Diabetes
NAGA
#Paroxysmal Atrial Fibrillation
Sustained A-fib with shortness of breath 03/25/2025.
- Tikosyn in IVU: 500 mcg 03/25, 125 mcg q12h 03/26
- continue Eliquis 5 mg p.o. twice daily
- Mildly bradycardic. Metoprolol halved to 25 mg po bid 03/26. Halved to 12.5 mg twice daily on discharge
- monitor QTc: 485 baseline -> after first dose 500 mg: QTc 548 milliseconds-> second dose held -> QTc 500 next am -> Tikosyn restarted at 125 mcg -> QTc 490 ms -> Tikosyn third dose, QTc 508 ms
�Avoid QT-prolonging meds. Fluoxetine continues to be held
- monitor K (>4) and Mg (>2). Replete as needed
Patient discharged on 125 mcg Tikosyn twice daily. Outpatient ablation scheduled for the day before .
Cardiology arranged outpatient follow-up.
#SOB 2/2 Right pleural effusion�drained
#11 pound weight gain over 1 month 2/2 acute on chronic HFpEF
#Chronic cough
CXR: 1. Moderate right pleural effusion, increased in size compared to prior chest x-ray. 2. Right lower lobe airspace disease may also be present.
Thoracentesis: 650 mL clear kofi fluid removed
Pleural fluid: Total protein 2.8, LDH 133, WBC 1187, 10% PMNs, glucose 124, pH 7.49
Serum: Protein 7.5, LDH 206
� Pleural/serum protein ratio: 0.37. Less than 0.5
� Serum LDH 206, greater than two thirds upper limit of normal (240). Pleural/serum LDH ratio equals 0.64. Meets 2 LDH exudative Light's criteria, but clinical picture more consistent with cardiogenic, transudative pleural effusion
pBNP 987 03/23/2025. 834 in 11/2023. 183
- daily weights: 100 kg on admission. Lowest weight 82-94 kg in 11/2023. 99.4 kg 03/25/2025. 99.8 kg 03/26
- I & Os
- hold PO furosemide.
Consult cardiology: Patient has been taking Lasix 80 mg p.o. twice daily for the last 3 days without significant response. Suspect volume overload.
� Increased furosemide to 80 mg IV BID. Held during NAGA. Resumed at 80 mg p.o. daily
� Echo: EF 55 to 60%, normal LV size, severe tricuspid regurg with PA pressure 25 mmHg, dilated right ventricle with normal systolic function similar to [facility] 01/2025
- Considering starting SGLT2 inhibitor for patient's chronic HFpEF, given that she has been hypertensive and has DM.
#Abd fullness
Could be constipation, but monitor for ascites from hepatic insufficiency/portal hypertension from heart failure
�MiraLAX
#Depression
-Fluoxetine 20 mg p.o. daily held due to QT prolonging side effect, patient's prolonged QT at baseline, and taking Tikosyn
#NAGA 03/26/2025�resolved 04/06/2025
Baseline creatinine 1.0. Creatinine increased to 1.4
Likely due to hypovolemia from increased diuretic dose compared to home
Blood pressure stable in 130s to 140s
- Held furosemide 80 mg IV BID and losartan 50 mg po bid for 1 day. Resumed furosemide 80 mg p.o. daily after creatinine normalized
#Essential Hypertension
- continued losartan 50 mg p.o. twice daily
#Diabetes Mellitus, Insulin-Dependent
- continued home insulin pump
Discharge Plan
-
Patient Disposition: Home (Routine Discharge)
Discharge Diagnosis/Procedures: Paroxysmal A-fib
Pleural effusion
HFpEF
diabetes
Depression
Prolonged QT
Hypertension
Condition: Good
Diet: Low Sodium and Diabetic, Carb Controlled
Activity: With assistance
Driving Restrictions: As prior to admission
Bathing Restrictions: None
Specialty Instructions: Weigh Daily- Call MD for wt gain/loss 3 lbs overnight/5 lbs in 1 week
Referrals:
Arsh Frances MD [Active, Cardiology]
Referral Note: A-fib management with repeat ablation versus antiarrhythmic
Amina Connelly CRNP [Family Provider, General] - in less than 1 week
Additional Discharge Medication Instructions: Please follow-up with cardiology for cardiac ablation.
Please follow-up with your PCP for this hospitalization within a week.
Prescriptions:
New
dofetilide 125 mcg Capsule
125 mcg PO Q12H Qty: 60 2RF
metoprolol tartrate 25 mg Tablet
12.5 mg PO BID Qty: 60 0RF
furosemide [Lasix] 80 mg tablet
80 mg PO DAILY Qty: 30 0RF
codeine-guaifenesin 10-100 mg/5 mL liquid
5 ml PO Q6H PRN (Reason: Cough) Qty: 200 0RF
Continued
Patient Own Insulin Pump
0 unit SC [id number]
Patient Comments:
12/11/2023: Pt uses Fiasp 'INJECT 100 UNITS DAILY VIA INSULIN PUMP E10.'
losartan 50 mg Tablet
50 mg PO BID Qty: 60 0RF
pantoprazole 40 mg tablet,delayed release (DR/EC)
40 mg PO BID
acetaminophen [Tylenol Extra Strength] 500 mg Tablet
1,000 mg PO TIDPRN PRN (Reason: mild pain or fever) Qty: 60 0RF
nitroglycerin 0.4 mg Tablet, Sublingual
0.4 mg sublingual [id number] PRN (Reason: Chest pain) Qty: 30 0RF
Eliquis 5 mg Tablet
5 mg PO BID
Discontinued
metoprolol tartrate 25 MG tablet
50 mg PO BID
furosemide 80 mg Tablet
120 mg PO TU
fluoxetine 20 mg Tablet
20 mg PO DAILY
furosemide 80 mg tablet
80 mg PO SUMOWETHFRSA
Discharge Orders:
Discharge Patient (As Directed); Ordered 03/28/25
Ordered By: Shiraz Desai
Care Plan Goals
Care Plan Goals:
Problem: Readiness for enhanced knowledge related to diagnosis and treatment plan
Goal: Understand your diagnosis and treatment plan needs, including medications if applicable.
Instructions: Know your diagnosis, underlying causes and treatment plan options, including medications if applicable. Consult with your health care team to learn about your diagnosis and treatment plan, including medications if applicable.
Discharge Date and Time
Discharge Date/Time: 03/28/25 13:25
Print Language: CENTRAL AFRICAN
== END 2025-03-28 13:25 | disposition home or self-care (01) | DRG 291 ==
LOC: IVU 19:25
PROVIDERS: Emergency Medicine; Nurse Practitioner Family; Radiology Diagnostic Radiology; ADMITTING PHYSICIAN Internal Medicine; ATTENDING PHYSICIAN Hospitalist; EMERGENCY PHYSICIAN Student in an Organized Health Care Education/Training Program; FAMILY PHYSICIAN Nurse Practitioner Adult Health; OTHER PHYSICIAN Internal Medicine Cardiovascular Disease
PROC: 0W993ZZ Drainage of Right Pleural Cavity, Percutaneous Approach (ICD-10-PCS; 2025-03-24)
PROC: 3E0234Z Introduction of Serum, Toxoid and Vaccine into Muscle, Percutaneous Approach (ICD-10-PCS; 2025-03-28)
DX: I13.0 Hypertensive heart and chronic kidney disease with heart failure and stage 1 through stage 4 chronic kidney disease, or unspecified chronic kidney disease (principal); I50.33 Acute on chronic diastolic (congestive) heart failure; J91.8 Pleural effusion in other conditions classified elsewhere; N17.9 Acute kidney failure, unspecified; E10.22 Type 1 diabetes mellitus with diabetic chronic kidney disease; I48.0 Paroxysmal atrial fibrillation; N18.31 Chronic kidney disease, stage 3a; I27.20 Pulmonary hypertension, unspecified; K21.9 Gastro-esophageal reflux disease without esophagitis; E78.5 Hyperlipidemia, unspecified; G47.33 Obstructive sleep apnea (adult) (pediatric); F32.A Depression, unspecified; Z96.41 Presence of insulin pump (external) (internal); Z23 Encounter for immunization; Z79.4 Long term (current) use of insulin; Z87.891 Personal history of nicotine dependence; Z79.899 Other long term (current) drug therapy; Z79.01 Long term (current) use of anticoagulants
CPT/HCPCS: 32555; 71045; 71046; 80053; 82150; 82945; 82962; 83036; 83615; 83735; 83880; 83986; 84157; 84478; 84484; 85025; 85027; 87015; 87070; 87102; 87116; 87205; 87206; 88112; 88305; 89051; 93005; 93308; 93321; 93325; 96374; 97116; 97162; 99285; Q9950

== ENCOUNTER 2025-04-21 07:58 | Day surgery (SDC) | payer MEDICARE, OTHER, SELFPAY ==
[2025-04-21] VITALS (11 sets, daily range): BP systolic 136–164; BP diastolic 50–63; BMI 35.8
--- NOTE | 2025-04-21 07:58 | ITS.CL.ABL ---
[employer] - Ablation
Ablation
Procedure Report:
ELECTROPHYSIOLOGIC STUDY AND POSSIBLE ABLATION
DATE: 04/21/25
Primary Care Provider: Dr Amina Connelly
Primary Phlebotomy Coordinator: Dr. Beto Boles�
INDICATION:
Symptomatic Atrial Fibrillation.
Paroxysmal
HISTORY: See H and P.
Symptomatic AF, poorly controlled with attempted medical therapy.
She has a past medical history of paroxysmal atrial fibrillation status post ablation December 22, 2013 and May 2023, hypertension, insulin-dependent diabetes, chronic heart failure with preserved ejection fraction, orthostasis, and COVID-pneumonia
requiring ICU stay in December 2020 and PVCs. She also has IAN and mild pulmonary hypertension.
Dofetilide was initiated but she developed QT interval prolongation requiring serial dose reduction.� On very low dose of 0.125 mg twice daily�
HAS-BLED: 3
Age
Abnormal Renal Function
Abnormal Liver Function
CHADSVASc: 5
HFpEF
HTN
Age
DM
F Gender
PRESENTING RHYTHM: SR
HISTORY: See H and P.
Symptomatic AF, poorly controlled with attempted medical therapy.
Antiarrhythmic drug therapy: Dofetilide 125 mcg twice daily
ANTICOAGULATION: Eliquis 5 mg twice daily
'TIME-OUT': called and confirmed.
SEDATION/ANESTHESIA: provided via the anesthesia department using general anesthesia.
PROCEDURE:
Ultrasound Guidance with real-time visualization of needle insertion and vessel patency performed by az for femoral venous Vascular Access.
Under real-time US guidance, the needle was advanced with negative pressure into the vein. The needle was seen entering the vessel lumen with a good return of dark red flow, the syringe was removed, non-pulsatile, dark red blood low was noted and
the wire was passed without difficulty, then the needle was removed. US confirmed the wire was in the vein, not going into an artery,
Images were taken and saved for the patient's permanent record. Imaging findings typical femoral venous anatomy. Direct visualization of needle puncture into the femoral vein was observed and recorded.
A decapolar CS catheter was placed within the CS for mapping and pacing.
The intracardiac ultrasound catheter was positioned in the RA for continuous intracardiac ultrasound imaging.
Heparin bolus and infusion to target ACT at 300 -350 seconds was administered. Transseptal puncture was performed. This entailed advancing a sheath with dilator into the superior vena cava and withdrawing both (monitoring intracardiac ultrasound,
fluoroscopy and tip pressure) with the tip oriented toward the atrial septum. The fossa ovalis was engaged (indicated by sudden displacement of the sheath tip as well as tenting of the fossa seen on intracardiac ultrasound).
Transseptal puncture was performed. Left atrial catheter position was confirmed by echocardiographic imaging, pressure monitoring (LA mean pressure 19 mm Hg) and fluoroscopy. The sheath was advanced over the dilator and positioned in the left
atrium.
The Sphere 9 multipolar mapping/ablation Sphere-9 catheter was positioned through the transseptal sheath for high density mapping.
Geometry and voltage mapping was performed using the [employer] mapping system for three-dimensional electroanatomical mapping.
Catheter positioning was guided and confirmed using both I.C.E. and fluoroscopy.
High density electroanatomical three-dimensional mapping demonstrated four PVs: LSPV, LIPV, RSPV, RIPV.
Ablation strategy included PVI as well as mapping for extra PV contributors to atrial fibrillation which would also be targeted if present.
Mapping finds reconnection of the left superior pulmonary vein towards its inferior and posterior quadrants. Delivery of pulsed electric field energy via the sphere 9 catheter electrically isolated the pulmonary vein.
After accomplishing pulmonary venous isolation, mapping identified additional areas likely to be extra PV contributors to atrial fibrillation. These areas demonstrated patchy low voltage as well as complex fractionated electrograms. These areas can
be sites for the formation of rotors which can drive and maintain atrial fibrillation. These areas are known to be significant contributors to initiation and perpetuation of atrial fibrillation.
Additional energy applications/additional ablation sets targeted extra PV contributors to atrial fibrillation.
Targets for additional PFA ablation included:
LA posterior wall targeted with pulsed electric field energy isolating the posterior wall of the left atrium
After ablation of the posterior wall, additional targets were addressed:
LA inferior floor
These areas were ablated using pulsed electric field energy eliminating the extra PV contributors to atrial fibrillation.
Post ablation mapping finds entrance and exit block at each of the pulmonary veins, the LA posterior wall and at the additional line at the inferior/floor of the LA rendering the sites no longer able to contribute to atrial fibrillation.
Programmed electrostimulation including burst atrial pacing as well the delivery of decremental extrastimuli down to atrial effective refractory period and no sustained arrhythmias could be induced.
I.C.E. :
Pre-Ablation Post-Ablation
LVEF: 55 % 55 %
WMA: none none
Pericardial effusion: none none
LA Pressure (mmHg) 19 21
COMPLICATIONS:
none
SUMMARY:
- Mapping and ablation to isolate the PVs resulting in electrical isolation of the pulmonary veins
- Additional AF ablation sets X 2 after PVI (LA posterior wall, Inf/floor of the LA posterior wall) resulting in elimination of the targeted extra PV contributors to atrial fibrillation (Post wall, Inf LA floor)
- 3-D Electroanatomical Mapping
- Intracardiac Ultrasound
- Ultrasound guidance for vascular access
- On presentation to the laboratory, prior to ablation patient found to have elevated right atrial and left atrial pressures with right atrial pressure of 18 and left atrial pressure of 19 suggestive of volume overload.
Post ablation, I discussed today's findings and results with the patient's , Taran.
RECOMMENDATIONS:
- Observe in monitored bed.
- Maintain oral anticoagulation with apixaban 5 mg twice daily.
- Maintain dofetilide at low-dose post (0.125 mg BID) PVI for 6 months, then if still maintaining sinus rhythm, a trial off of antiarrhythmic drug therapy is reasonable.
- Lasix 40 mg IV now
- Office visit with NEAL Irvin in 3 to 4 months.
- Continue cardiovascular care with Dr. Beto Boles�
*
She has been having repeated epistaxis despite prior cauterizations. Epistaxis have been recurrent and very disturbing to her. She asked about eventually stopping oral anticoagulation. She needs to be on anticoagulation a minimum of 2 months post
ablation and ideally would remain on anticoagulation lifelong given her elevated background thromboembolic risk with CHADSVASc = 5. If she refuses lifelong oral anticoagulation next recommendation would be to consider left atrial appendage
exclusion (Watchman) to reduce her long-term exposure to anticoagulation. Failing this there is some data that if patients remained free of atrial fibrillation 12 months after PVI it may be safe to stop oral anticoagulation. If this option is
chosen, I would want continuous monitoring via her ILR with reimplantation of new ILR once current device reaches battery depletion so that we can have very long-term data regarding maintenance of sinus rhythm.
*
Copy to:
Primary Care Provider: Dr Amina Connelly
Primary Phlebotomy Coordinator: Dr. Beto Boles�
[2025-04-21 08:32] LABS: Glucose - Point of Care 171 mg/dl (70-99)
[2025-04-21 10:39] LABS: ACT-LR - POC 368 Seconds (116-155)
[2025-04-21 10:46] LABS: Glucose - Point of Care 164 mg/dl (70-99)
[2025-04-21 10:54] LABS: ACT-LR - POC 350 Seconds (116-155)
--- NOTE | 2025-04-21 14:59 | W.PN.UPDATE ---
Update Note
Progress Note Update
Pt seen post PFA. Right groin site without ht/bleeding, non tender. OOB ambulating. Post EKG NSR 70, no acute changes. Resume eliquis tonight at usual time. Continue tikosyn at this time. Followup with Dr. Boles in 3 months. Home today if groin
site/tele remain stable.
== END 2025-04-21 16:30 | disposition home or self-care (01) ==
LOC: CATH 07:58
PROVIDERS: ATTENDING PHYSICIAN Internal Medicine Cardiovascular Disease; FAMILY PHYSICIAN Nurse Practitioner Adult Health; OTHER PHYSICIAN Internal Medicine Cardiovascular Disease
DX: I48.0 Paroxysmal atrial fibrillation (principal); I50.32 Chronic diastolic (congestive) heart failure; Z86.16 Personal history of COVID-19; E11.9 Type 2 diabetes mellitus without complications; I27.20 Pulmonary hypertension, unspecified; G47.33 Obstructive sleep apnea (adult) (pediatric); I13.0 Hypertensive heart and chronic kidney disease with heart failure and stage 1 through stage 4 chronic kidney disease, or unspecified chronic kidney disease; E11.22 Type 2 diabetes mellitus with diabetic chronic kidney disease; N18.31 Chronic kidney disease, stage 3a; Z87.01 Personal history of pneumonia (recurrent); Z96.41 Presence of insulin pump (external) (internal); Z79.01 Long term (current) use of anticoagulants; Z79.4 Long term (current) use of insulin; Z98.890 Other specified postprocedural states; Z79.899 Other long term (current) drug therapy; I25.10 Atherosclerotic heart disease of native coronary artery without angina pectoris
CPT/HCPCS: C1733; C1769; C1766; C1730; C1892; 82962; 85347; 93005; 93656; 93657; C1894